=== PATIENT | male | born 1930 | race Caucasian/White ===

== ENCOUNTER → 2016-09-16 | Outpatient (CLI) | payer OTHER ==
[~2016-09-16] MED LIST: ASPI81TA28 PO; ATOR80TA PO; FINA5TAB4 PO; GLIP1TAB85 PO; METF-384 PO; METO1TAB31 PO; MULTTAB58 PO; NXM/40 PO; RAMI10CA PO; TERA5CAP PO
[2016-09-16 17:35] LABS: BASO % 0.2 %; BASO ABS # 0.02 K/uL (0-0.2); COMPLETE YES; EOS % 2.1 %; HEMATOCRIT 38.6 % (42-52); IG% 0.2 %; LYMPH % 15.9 %; LYMPH ABS # 1.65 K/uL (1.2-3.4); MEAN CELL VOLUME 84.5 fL (80-100); MEAN CORPUSCULAR HEMOGLOBIN 27.4 pg (25-34); MEAN CORPUSCULAR HGB CONC 32.4 g/dl (32-36); MEAN PLATELET VOLUME 11.3 fL (7.4-10.4); MONO % 7.7 %; NEUT % 73.9 %; PLATELET COUNT 264 K/uL (130-400); RED BLOOD COUNT 4.57 M/uL (4.7-6.1); WHITE BLOOD COUNT 10.37 K/uL (4.8-10.8)
[2016-09-16 17:53] LABS: ALT/SGPT 25 U/L (12-78); AST/SGOT 16 U/L (15-37); BLOOD UREA NITROGEN 28 mg/dl (7-18); BUN/CREATININE RATIO 17.2 (10-20); CALCIUM 8.8 mg/dl (8.5-10.1); CARBON DIOXIDE 29 mmol/L (21-32); CHLORIDE 107 mmol/L (98-107); GLUCOSE 268 mg/dl (70-99); POTASSIUM 4.5 mmol/L (3.5-5.1); SODIUM 143 mmol/L (136-145)
[2016-09-16 18:04] LABS: ALB/GLOB RATIO 0.9 (0.9-2); ALKALINE PHOSPHATASE 54 U/L (45-117); FERRITIN 13.9 ng/ml (8.0-388.0)
[2016-09-17 06:29] LABS: ESTIMATED AVERAGE GLUCOSE 171 mg/dl; HA1C FLAG Normal (Normal)
--- NOTE | 2016-09-24 13:49 | CODING QUERY MEDICAL NECESSITY ---
SUPPORTING DIAGNOSIS NEEDED A supporting diagnosis is required for the test/procedure performed on this patient in order for us to be reimbursed by the patient's insurance. Please provide a supporting diagnosis for the following test/procedure listed below next to the test name along with your signature. *If there is no additional diagnosis for this patient that would support the following test/procedure please document that below next to the test/procedure. Test(s)/Procedure(s) that require a supporting diagnosis: * VITAMIN B-12 LEVEL DIAGNOSIS * DOS: 09/16/16 Provider Signature: Date: Thank you Martine Wall [facility] Information Management Once completed, please kindly fax back to [phone] For questions please call [phone]
== END | disposition home or self-care (01) ==
LOC: C.LABPBG 14:41
PROVIDERS: ATTEND Internal Medicine Geriatric Medicine
DX: I12.9 Hypertensive chronic kidney disease with stage 1 through stage 4 chronic kidney disease, or unspecified chronic kidney disease (principal); D64.9 Anemia, unspecified; I25.10 Atherosclerotic heart disease of native coronary artery without angina pectoris; Z79.01 Long term (current) use of anticoagulants; I48.0 Paroxysmal atrial fibrillation; I35.0 Nonrheumatic aortic (valve) stenosis; N18.3 Chronic kidney disease, stage 3 (moderate); E11.29 Type 2 diabetes mellitus with other diabetic kidney complication; E11.22 Type 2 diabetes mellitus with diabetic chronic kidney disease

== ENCOUNTER → 2016-09-22 | Outpatient (CLI) | payer OTHER ==
[2016-09-22 13:03] LABS: BLOOD UREA NITROGEN 20 mg/dl (7-18); CALCIUM 8.9 mg/dl (8.5-10.1); CARBON DIOXIDE 28 mmol/L (21-32); CHLORIDE 106 mmol/L (98-107); GLUCOSE 155 mg/dl (70-99); POTASSIUM 4.5 mmol/L (3.5-5.1); SODIUM 143 mmol/L (136-145)
== END | disposition home or self-care (01) ==
LOC: C.LABPBG 10:13
PROVIDERS: ATTEND Internal Medicine Geriatric Medicine
DX: I48.0 Paroxysmal atrial fibrillation (principal); N18.3 Chronic kidney disease, stage 3 (moderate)

== ENCOUNTER → 2017-03-31 | Outpatient (CLI) | payer OTHER ==
[2017-03-31 17:26] LABS: BASO % 0.6 %; BASO ABS # 0.04 K/uL (0-0.2); COMPLETE YES; EOS % 2.6 %; HEMATOCRIT 41.7 % (42-52); IG% 0.3 %; LYMPH % 21.4 %; LYMPH ABS # 1.54 K/uL (1.2-3.4); MEAN CELL VOLUME 87.1 fL (80-100); MEAN CORPUSCULAR HGB CONC 32.1 g/dl (32-36); MEAN PLATELET VOLUME 11.1 fL (7.4-10.4); MONO % 7.2 %; NEUT % 67.9 %; PLATELET COUNT 246 K/uL (130-400); RED BLOOD COUNT 4.79 M/uL (4.7-6.1); WHITE BLOOD COUNT 7.21 K/uL (4.8-10.8)
[2017-03-31 17:39] LABS: ALT/SGPT 19 U/L (12-78); BLOOD UREA NITROGEN 23 mg/dl (7-18); BUN/CREATININE RATIO 14.6 (10-20); CALCIUM 9.8 mg/dl (8.5-10.1); CARBON DIOXIDE 29 mmol/L (21-32); CHLORIDE 106 mmol/L (98-107); CHOLESTEROL 233 mg/dl (0-200); GLUCOSE 192 mg/dl (70-99); POTASSIUM 4.4 mmol/L (3.5-5.1); SODIUM 140 mmol/L (136-145)
[2017-03-31 17:50] LABS: ALB/GLOB RATIO 0.8 (0.9-2); ALKALINE PHOSPHATASE 54 U/L (45-117); AST/SGOT 15 U/L (15-37); CHOLESTEROL/HDL RATIO 5.2; HDL CHOLESTEROL 45 mg/dl; LDL CHOLESTEROL CALCULATED 154 mg/dl; TRIGLYCERIDES 171 mg/dl (0-150); VERY LOW DENSITY LIPOPROT CALC 34 mg/dl
[2017-04-01 05:56] LABS: ESTIMATED AVERAGE GLUCOSE 174 mg/dl; HA1C FLAG Normal (Normal)
== END | disposition home or self-care (01) ==
LOC: C.LABPBG 11:30
PROVIDERS: ATTEND Internal Medicine Geriatric Medicine
DX: I12.9 Hypertensive chronic kidney disease with stage 1 through stage 4 chronic kidney disease, or unspecified chronic kidney disease (principal); D64.9 Anemia, unspecified; I25.10 Atherosclerotic heart disease of native coronary artery without angina pectoris; M10.9 Gout, unspecified; N18.3 Chronic kidney disease, stage 3 (moderate); E11.29 Type 2 diabetes mellitus with other diabetic kidney complication; I48.0 Paroxysmal atrial fibrillation

== ENCOUNTER → 2017-09-22 | Outpatient (CLI) | payer OTHER ==
[~2017-09-22] MED LIST changes: +METO-478 PO; -METO1TAB31 PO
[2017-09-22 12:28] LABS: BASO % 0.5 %; BASO ABS # 0.04 K/uL (0-0.2); EOS % 2.4 %; HEMATOCRIT 41.8 % (42-52); HEMOGLOBIN 14.1 g/dL (14.0-18.0); IG# 0.03 K/uL (0.00-0.02); LYMPH % 20.8 %; LYMPH ABS # 1.76 K/uL (1.2-3.4); MEAN CELL VOLUME 87.1 fL (80-100); MEAN CORPUSCULAR HEMOGLOBIN 29.4 pg (25-34); MEAN CORPUSCULAR HGB CONC 33.7 g/dl (32-36); MEAN PLATELET VOLUME 11.5 fL (7.4-10.4); MONO % 8.7 %; MONO ABS # 0.74 K/uL (0.11-0.59); NEUT % 67.2 %; PLATELET COUNT 249 K/uL (130-400); RED CELL DISTRIBUTION WIDTH CV 14.2 % (11.5-14.5); RED CELL DISTRIBUTION WIDTH SD 44.9 fL (36.4-46.3); WHITE BLOOD COUNT 8.47 K/uL (4.8-10.8)
[2017-09-22 13:08] LABS: HEMOGLOBIN A1C 7.8 % (4.5-5.6)
[2017-09-22 18:25] LABS: ALBUMIN 3.4 gm/dl (3.4-5.0); ALT/SGPT 24 U/L (12-78); AST/SGOT 17 U/L (15-37); BLOOD UREA NITROGEN 26 mg/dl (7-18); CALCIUM 9.3 mg/dl (8.5-10.1); CARBON DIOXIDE 30 mmol/L (21-32); CHOLESTEROL 190 mg/dl (0-200); CREATININE 1.97 mg/dl (0.60-1.40); GLUCOSE 222 mg/dl (70-99); POTASSIUM 4.5 mmol/L (3.5-5.1); SODIUM 140 mmol/L (136-145)
[2017-09-22 18:29] LABS: ALKALINE PHOSPHATASE 56 U/L (45-117); LDL CHOLESTEROL CALCULATED 100 mg/dl; TOTAL PROTEIN 7.6 gm/dl (6.4-8.2)
== END | disposition home or self-care (01) ==
LOC: C.LABPBG 10:53
PROVIDERS: ATTEND Internal Medicine Geriatric Medicine
DX: I12.9 Hypertensive chronic kidney disease with stage 1 through stage 4 chronic kidney disease, or unspecified chronic kidney disease (principal); E83.42 Hypomagnesemia; N18.3 Chronic kidney disease, stage 3 (moderate); I25.10 Atherosclerotic heart disease of native coronary artery without angina pectoris; M10.9 Gout, unspecified; E11.29 Type 2 diabetes mellitus with other diabetic kidney complication; E11.22 Type 2 diabetes mellitus with diabetic chronic kidney disease

== ENCOUNTER 2018-08-05 11:37 | Inpatient (IN) ==
[2018-08-05] MEDS ORDERED: MoRPHine SULFATE 2 MG/ML CARP IV STA (12:33)
[2018-08-05] MEDS ORDERED: ONDANSETRON INJ 2 MG/ML 2 ML VIAL IV STA ×2 (12:33→14:09)
[2018-08-05 12:43] LABS: Basophils # (auto) 0.02 K/uL (0-0.2); Basophils % (auto) 0.2 %; Hemoglobin 15.4 g/dL (14.0-18.0); Immature Granulocytes # (auto) 0.03 K/uL (0.00-0.02); Immature Granulocytes % (auto) 0.2 %; Lymphocytes # (auto) 1.14 K/uL (1.2-3.4); Lymphocytes % (auto) 8.7 %; Mean Corpuscular Hgb Conc 34.2 g/dL (32-36); Mean Corpuscular Volume 86.2 fL (80-100); Mean Platelet Volume 10.9 fL (7.4-10.4); Monocytes # (auto) 0.82 K/uL (0.11-0.59); Monocytes % (auto) 6.3 %; Neutrophils # (auto) 11.02 K/uL (1.4-6.5); Neutrophils % (auto) 84.6 %; Platelet Count 204 K/uL (130-400); RDW Coefficient of Variation 13.4 % (11.5-14.5); RDW Standard Deviation 42.4 fL (36.4-46.3); Red Blood Count 5.22 M/uL (4.7-6.1); White Blood Count 13.03 K/uL (4.8-10.8)
[2018-08-05] MEDS ORDERED: SODIUM CHLORIDE 0.9% 500 ML IV SCH (12:45)
[2018-08-05 12:49] LABS: INR 1.4 (0.9-1.1)
[2018-08-05 12:51] LABS: Albumin Level 3.4 gm/dl (3.4-5.0); BUN Creatinine Ratio 13.7 (10-20); Calcium 9.3 mg/dl (8.5-10.1); Creatinine Clr Calc Pharmacy 34.7 ml/min; Est GFR (Non-African American) 39.7
--- NOTE | 2018-08-05 12:57 | XRay Report ---
XR chest 1V portable CLINICAL HISTORY: Atypical chest pain COMPARISON STUDY: 04/22/2013 FINDINGS: There are postsurgical changes of midline sternotomy. The heart is mildly enlarged. There i s no focal pulmonary consolidation. There is no overt failure. There are no pleural effusions.[ IMPRESSION: No active disease in the chest. Electronically signed by: Luis Manuel Keller M.D. 08/05/2018 12:55 PM
[2018-08-05 13:00] LABS: iSTAT Hemoglobin 14.6 g/dl (14.0-18.0); iSTAT Ionized Calcium 1.16 mmol/l (1.12-1.32)
[2018-08-05] MEDS ORDERED: IOVERSOL 100ml IV PRN (13:06)
--- NOTE | 2018-08-05 13:13 | CT Scan Report ---
CT cervical spine wo con CT DOSE: 352.10 mGy.cm HISTORY: Pain Pt c/o neck pain TECHNIQUE: Multiaxial CT images of the cervical spine were performed and reformatted in the sagittal and coronal plane without the use of contrast. A dose lowering technique was utilized adhering to th e principles of ALARA. COMPARISON: None. FINDINGS: No fractures. No subluxation. Prevertebral soft tissues and the C1-C2 interval are intact. No pneumothorax. Considerable degenerative disc changes throughout. Considerable degenerative changes of the lateral elements throughout. IMPRESSION: Considerable degenerative change. No acute bony abnormality. The above report was generated using voice recognition software. It may contain grammatical, syntax or spelling errors. Electronically signed by: Leonid Borrero M.D. 08/05/2018 1:12 PM
[2018-08-05 13:20] LABS: Albumin Globulin Ratio 0.7 (0.9-2); Bilirubin,Total 0.9 mg/dl (0.2-1); Creatine Kinase MB 14.4 ng/ml (0.5-3.6); Globulin 4.7 gm/dl (2.5-4.0); Total Protein 8.1 gm/dl (6.4-8.2)
--- NOTE | 2018-08-05 13:29 | CT Scan Report ---
ABDOMEN AND PELVIS CT WITH IV CONTRAST CT DOSE: 627.68 mGy.cm HISTORY: Complains of epigastric pain. TECHNIQUE: Multiaxial CT images of the abdomen and pelvis were performed following the use of intrave nous contrast. A dose lowering technique was utilized adhering to the principles of ALARA. COMPARISON STUDY: None. FINDINGS: Punctate calcified granuloma within the right middle lobe. Mild dependent changes seen at t he lung bases. No fractures within the visualized osseous structures. Poststernotomy changes. No pneu moperitoneum. No pneumatosis. Small hiatus hernia. Punctate calcified granulomas seen throughout the liver and spleen. The adrenal glands, pancreas, and kidneys are within normal limits. No hydronephros is. No retroperitoneal lymphadenopathy. Calcified plaque within the normal caliber abdominal aorta. A 1.5 cm diverticulum at the second portion of the duodenum. There is gallbladder wall thickening and trace pericholecystic fluid. A 1 cm gallstone in a few additional tiny gallstones identified. There i s suggestion of a 5 mm stone at the distal common bile duct best seen on image 39 of 100. Therefore, these findings are consistent with acute cholecystitis. The bladder is unremarkable. The prostate gla nd is enlarged. No bowel wall thickening or obstruction. Colonic diverticulosis. No evidence for dive rticulitis. Moderate stool within the colon. No definite bowel wall thickening or obstruction. The ap pendix not identified and reportedly surgically absent. IMPRESSION: 1. Above findings are consistent with acute cholecystitis. There are few small gallstones identified within the gallbladder. In addition, there is suggestion of a 5 mm stone at the distal common bile du ct. Surgical consultation recommended. 2. No bowel wall thickening or obstruction. 3. Additional findings as described above. Electronically signed by: Mark Huang M.D. 08/05/2018 1:28 PM
[2018-08-05] MEDS ORDERED: cefOXitin 1,000 MG/50 ML BAG IV STA (13:34)
[2018-08-05] MEDS ORDERED: METOCLOPRAMIDE HCL INJ 5 MG/ML 2 ML VIAL IV STA (13:38)
[2018-08-05] MEDS ORDERED: HYDROmorphone INJ 0.5 MG/0.5 ML SYR IV PRN ×2 (13:38→17:48)
[2018-08-05] MEDS ORDERED: SODIUM CHLORIDE 0.9% 1000ML 1,000 ML IV ONE (13:38)
[2018-08-05 13:48] LABS: Troponin I 0.467 ng/ml (0-0.045)
[2018-08-05] MEDS ORDERED: DEXAMETHASONE **PF** INJ 10 MG/ML VIAL IV ONE (14:09)
[2018-08-05] MEDS ORDERED: KETOROLAC 30 MG/ML VIAL IV STA (14:09)
[2018-08-05] MEDS ORDERED: HYDROmorphone INJ 1 MG/ML SYRINGE IV STA (14:09)
--- NOTE | 2018-08-05 16:19 | History & Physical Report ---
Date of Service August 05, 2018 Assessment & Plan (1) Acute cholecystitis: 87 y/o M Hx CAD, PAF, HTN, HLD, CKD III, BPH, DM II. Presents with nausea , upper abdominal pain and a fever x 2 days. The pt is a poor historian and a side from generalized weakness denies additional complaints. A CT of the abdomen was obtained in the ER demonstrating acute cholecystitis and possibly, a 5mm common duct stone. Initil labs are notable for an elevated troponin. He has not had or SOB. 1) Acute cholecystitis - we have consulted surgery and placed him on broad coverage due to his age, fever and concern for evolving sepsis. As there may be a stone in the common duct, GI will be consulted as well. He is provided with IVF, antiemetics and analgesics. We will keep him NPO. 2) Elevated trop - this may be due to his infection. As he has a history of CAD and will likely need surgery, we have ordered an echo and requested a cardiology consult. No additional treatment at present as he does not have related symptoms or acute EKG changes. 3) PAF - sinus rhythm on admission - cont B john - Apixaban held due to potential surgery. 4) DM II - placed on a SS 5) HTN, HLD - can cont metoprolol, statin - Lisinopril held Full code - Apixaban held athough currently aniciogulated Total time for this admit including review of labs, meds, imaging, records - discussion with pt and ER attending - 37 min History of Present Illness Chief Complaint: Abdominal pain, fever, nausea Primary Care Provider: IVAN Talbot 87 y/o M Hx CAD, PAF, HTN, HLD, CKD IIIBPH, DM II. Presents with nausea, upper abdominal pain and a fever x 2 days. The pt is a poor historian and a side from generalized weakness denies additional complaints. A CT of the abdomen was obtained in the ER demonstrating acute cholecystitis and possibly, a 5mm common duct stone. Initil labs are notable for an elevated troponin. He has not had or SOB. 1) PMH: 1) Paroxysmal AF 2) Moderate aortic stenosis 3) HTN 4) HLD 5) CAD 6) DM II 7) BPH 8) CKD III Surgical: 1) two vessel CABG 2012 2) Appendectomy Social: Rarely drinks, no smoking history Family: Noncontributory due to age Allergies Allergy/AdvReac Type Severity Reaction Status Date / Time No Known Allergies Allergy Unverified 08/05/18 13:22 Home Medications Home Medications Medication Instructions Recorded Confirmed Type acetaminophen [Tylenol Extra 1,000 mg PO Q6H PRN 08/05/18 08/05/18 History Strength] apixaban [Eliquis] 2.5 mg PO BID 08/05/18 08/05/18 History aspirin 81 mg PO QAM 08/05/18 08/05/18 History atorvastatin 80 mg PO QAM 08/05/18 08/05/18 History esomeprazole magnesium [Nexium] 40 mg PO QAM 08/05/18 08/05/18 History finasteride 5 mg PO QAM 08/05/18 08/05/18 History glipizide 10 mg PO BID 08/05/18 08/05/18 History metoprolol succinate 150 mg PO QAM 08/05/18 08/05/18 History multivitamin 1 tab PO QAM 08/05/18 08/05/18 History nystatin 1 applic TOPICAL TID 08/05/18 08/05/18 History ramipril 5 mg PO QAM 08/05/18 08/05/18 History sitagliptin [Januvia] 50 mg PO QAM 08/05/18 08/05/18 History terazosin 5 mg PO HS 08/05/18 08/05/18 History triamcinolone acetonide 1 applic TOPICAL TID 08/05/18 08/05/18 History Past Med/Surg History Medical History CKD (chronic kidney disease) Social History Current Living Situation: Spouse Other Information That Helps Us Care for You: No Feels Safe at Home: Yes Safety Concerns: Feels Safe At This Time Smoking Status: Former smoker Do You Dip or Chew Tobacco: No Smoking End Date: 1981 Hx Alcohol Use: Yes Alcohol type: other Alcohol Intake Frequency: holidays/ special occasions only Hx Substance Use: No Beliefs That Will Affect Care: Alevism Alevism Beliefs: Mu-Ism Preferred Language: Brazilian Communication Ability: Effective Work Station Support Specialist Required: No Review of Systems Gen: Reports fevers, weakness, malais ENT: Denies congestion, throat pain, hearing loss Eyes: Denies acute visual changes CV: Denies CP, palpitations Pulmonary: Denies SOB, cough, wheezing GI: Upper abdominal pain and nausea Neuro: Denies acute or unilateral weakness, acute gait impairment, headache or acute visual changes Musculoskeletal: Denies joint pain, inflammation Endocrine: Denies polydipsia, polyuria Skin: Denies acute rashes or ulcers Physical Exam 2 Vital Signs (Past 24 Hours): Last Vital Signs Temp 37.6 C H 08/05/18 15:38 Pulse 97 H 08/05/18 15:04 Resp 18 08/05/18 15:04 BP 127/72 08/05/18 15:04 Pulse Ox 96 08/05/18 15:04 Physical Exam: General: Ill-appearing, lethargic, elderly male - AAO - no distress ENT: No erythema or exudates, no thrush Eyes: RIDDHI, EOMI Head and neck: Normocephalic, atraumatic, No JVD, neck is supple. Chest/heart: Nontender, S1,2, 3/6 systolic murmur - sternotomy scar Lungs: CTAB, no wheezing or crackles Abdomen: Minimally tender in RUQ - had received narcotics prior to exam Neuro: AAO x 3, speech is clear, no unilateral weakness or loss of sensation, coordination intact Musculoskeletal: No joint inflammation, muscle tenderness, FROM Skin: No acute rashes or ulcers Extremities: No clubbing, cyanosis, edema Results & Data Diagnostic Findings 1. Acute cholecystitis. There are a few small gallstones identified within the gallbladder. In addition, there is suggestion of a 5 mm stone at the distal common bile duct. Surgical consultation recommended. 2. No bowel wall thickening or obstruction.
--- NOTE | 2018-08-05 16:45 | Surgery Consultation ---
Date of Consultation August 05, 2018 Assessment & Plan (1) Acute cholecystitis: pt is a 87 year old male who presents to Er with 2 days history abdominal pain, IMP: [place], CKD, acute cholecystitis, cholelithiasis, CBD stone, Plan, I agree with internal medicine will admit pt to hospital, IV fluid ,antibiotic, control pain, MRCP, consult GI for CBD stone, repeat labs in am, will f/U History of Present Illness History of Present Illness 87 y/o M Hx CAD, PAF, HTN, HLD, BPH, DM II. Presents with nausea, upper abdominal pain and a fever x 2 days. The pt is a poor historian and a side from generalized weakness denies additional complaints. A CT of the abdomen was obtained in the ER demobstrating I got a call for consult this pt, I reviewed pt's H/P with pt, his and his friend, I reviewed CT scan, now pt has no significant abdominal pain, no nausea , no vomiting, no fever. Allergies Allergy/AdvReac Type Severity Reaction Status Date / Time No Known Allergies Allergy Unverified 08/05/18 13:22 Home Medications Home Medications Medication Instructions Recorded Confirmed Type acetaminophen [Tylenol Extra 1,000 mg PO Q6H PRN 08/05/18 08/05/18 History Strength] apixaban [Eliquis] 2.5 mg PO BID 08/05/18 08/05/18 History aspirin 81 mg PO QAM 08/05/18 08/05/18 History atorvastatin 80 mg PO QAM 08/05/18 08/05/18 History esomeprazole magnesium [Nexium] 40 mg PO QAM 08/05/18 08/05/18 History finasteride 5 mg PO QAM 08/05/18 08/05/18 History glipizide 10 mg PO BID 08/05/18 08/05/18 History metoprolol succinate 150 mg PO QAM 08/05/18 08/05/18 History multivitamin 1 tab PO QAM 08/05/18 08/05/18 History nystatin 1 applic TOPICAL TID 08/05/18 08/05/18 History ramipril 5 mg PO QAM 08/05/18 08/05/18 History sitagliptin [Januvia] 50 mg PO QAM 08/05/18 08/05/18 History terazosin 5 mg PO HS 08/05/18 08/05/18 History triamcinolone acetonide 1 applic TOPICAL TID 08/05/18 08/05/18 History Patient History Medical History Acute cholecystitis (Acute) CKD (chronic kidney disease) Social History Current Living Situation: Spouse Other Information That Helps Us Care for You: No Feels Safe at Home: Yes Safety Concerns: Feels Safe At This Time Smoking Status: Former smoker Do You Dip or Chew Tobacco: No Smoking End Date: 1981 Hx Alcohol Use: Yes Alcohol type: other Alcohol Intake Frequency: holidays/ special occasions only Hx Substance Use: No Beliefs That Will Affect Care: Congregation Congregation Beliefs: Cheondoism Preferred Language: [place] Communication Ability: Effective Comsec Manager Required: No Review of Systems Constitutional: as per Subjective / HPI Ear, Nose, Mouth, Throat: as per Subjective / HPI Respiratory: as per Subjective / HPI Cardiovascular: as per Subjective / HPI Gastrointestinal: as per Subjective / HPI Genitourinary (Male): as per Subjective / HPI Musculoskeletal: as per Subjective / HPI Integumentary: as per Subjective / HPI Neurologic: as per Subjective / HPI Psychiatric: as per Subjective / HPI Endocrine: as per Subjective / HPI Hematologic / Lymphatic: as per Subjective / HPI Physical Exam 2 Vital Signs (Past 24 Hours): Last Vital Signs Temp 37.6 C H 08/05/18 15:38 Pulse 97 H 08/05/18 15:04 Resp 18 08/05/18 15:04 BP 127/72 08/05/18 15:04 Pulse Ox 96 08/05/18 15:04 Constitutional: WD/WN, vitals as above well developed and well nourished Neck: trachea midline, no thyromegaly Respiratory: normal respiratory effort, lungs clear to auscultation Cardiovascular: RRR, no murmur, no edema Rate/Rhythm: regular rate and regular rhythm Gastrointestinal (Abdomen): Percussion/Palpation: abdomen soft no significant tenderness on abdomen, BS + Neurologic: awake Psychiatric: Orientation: alert and oriented x 3 Lymphatic: no cervical or axillary lymphadenopathy Results & Data Laboratory Results Abnormal lab results 08/05/18 08/05/18 08/05/18 Range/Units 11:50 11:50 11:50 WBC 13.03 H (4.8-10.8) K/uL MPV 10.9 H (7.4-10.4) fL Immature Gran # (Auto) 0.03 H (0.00-0.02) K/uL Neut # (Auto) 11.02 H (1.4-6.5) K/uL Lymph # (Auto) 1.14 L (1.2-3.4) K/uL [place] # (Auto) 0.82 H (0.11-0.59) K/uL PT 14.0 H (9.0-12.0) Seconds INR 1.4 H (0.9-1.1) Sodium 134 L (136-145) mmol/L POC Chloride (101-112) mEq/L POC BUN (7-18) mg/dl BUN 21 H (7-18) mg/dl Creatinine 1.55 H (0.6-1.4) mg/dl POC Creatinine (0.6-1.3) mg/dl Glucose 166 H (70-99) mg/dl POC Glucose (other) (70-99) mg/dl AST 225 H (15-37) U/L ALT 105 H (12-78) U/L Total Creatine Kinase 8706 H (39-308) U/L CK-MB (CK-2) 14.4 H (0.5-3.6) ng/ml Troponin I 0.467 H* (0-0.045) ng/ml Globulin 4.7 H (2.5-4.0) gm/dl Albumin/Globulin Ratio 0.7 L (0.9-2) 08/05/18 Range/Units 12:48 WBC (4.8-10.8) K/uL MPV (7.4-10.4) fL Immature Gran # (Auto) (0.00-0.02) K/uL Neut # (Auto) (1.4-6.5) K/uL Lymph # (Auto) (1.2-3.4) K/uL [place] # (Auto) (0.11-0.59) K/uL PT (9.0-12.0) Seconds INR (0.9-1.1) Sodium (136-145) mmol/L POC Chloride 99 L (101-112) mEq/L POC BUN 21 H (7-18) mg/dl BUN (7-18) mg/dl Creatinine (0.6-1.4) mg/dl POC Creatinine 1.4 H (0.6-1.3) mg/dl Glucose (70-99) mg/dl POC Glucose (other) 161 H (70-99) mg/dl AST (15-37) U/L ALT (12-78) U/L Total Creatine Kinase (39-308) U/L CK-MB (CK-2) (0.5-3.6) ng/ml Troponin I (0-0.045) ng/ml Globulin (2.5-4.0) gm/dl Albumin/Globulin Ratio (0.9-2) Diagnostic Findings ABDOMEN AND PELVIS CT WITH IV CONTRAST CT DOSE: 627.68 mGy.cm HISTORY: Complains of epigastric pain. TECHNIQUE: Multiaxial CT images of the abdomen and pelvis were performed following the use of intravenous contrast. A dose lowering technique was utilized adhering to the principles of ALARA. COMPARISON STUDY: None. FINDINGS: Punctate calcified granuloma within the right middle lobe. Mild dependent changes seen at the lung bases. No fractures within the visualized osseous structures. Poststernotomy changes. No pneumoperitoneum. No pneumatosis. Small hiatus hernia. Punctate calcified granulomas seen throughout the liver and spleen. The adrenal glands, pancreas, and kidneys are within normal limits. No hydronephrosis. No retroperitoneal lymphadenopathy. Calcified plaque within the normal caliber abdominal aorta. A 1.5 cm diverticulum at the second portion of the duodenum. There is gallbladder wall thickening and trace pericholecystic fluid. A 1 cm gallstone in a few additional tiny gallstones identified. There is suggestion of a 5 mm stone at the distal common bile duct best seen on image 39 of 100. Therefore, these findings are consistent with acute cholecystitis. The bladder is unremarkable. The prostate gland is enlarged. No bowel wall thickening or obstruction. Colonic diverticulosis. No evidence for diverticulitis. Moderate stool within the colon. No definite bowel wall thickening or obstruction. The appendix not identified and reportedly surgically absent. IMPRESSION: 1. Above findings are consistent with acute cholecystitis. There are few small gallstones identified within the gallbladder. In addition, there is suggestion of a 5 mm stone at the distal common bile duct. Surgical consultation recommended. 2. No bowel wall thickening or obstruction. 3. Additional findings as described above. CT cervical spine wo con CT DOSE: 352.10 mGy.cm HISTORY: Pain Pt c/o neck pain TECHNIQUE: Multiaxial CT images of the cervical spine were performed and reformatted in the sagittal and coronal plane without the use of contrast. A dose lowering technique was utilized adhering to the principles of ALARA. COMPARISON: None. FINDINGS: No fractures. No subluxation. Prevertebral soft tissues and the C1-C2 interval are intact. No pneumothorax. Considerable degenerative disc changes throughout. Considerable degenerative changes of the lateral elements throughout. IMPRESSION: Considerable degenerative change. No acute bony abnormality.
--- NOTE | 2018-08-05 17:45 | Ultrasound Report ---
ABDOMINAL ULTRASOUND, RIGHT UPPER QUADRANT HISTORY: Epigastric pain. Abnormal CT. acute ana - evaluate ducts for dilatation/stone. COMPARISON: Abdomen and pelvis CT 08/05/2018. FINDINGS: Pancreas: The pancreas demonstrates a normal echotexture. Liver: Unremarkable. Gallbladder: The gallbladder is mildly distended. The wall is thickened up to [address] ones and sludge are identified. CBD: 7 mm in diameter. This is considered within the range of normal limits given the patient's age. The distal common bile duct was not well visualized. Right kidney: No hydronephrosis. IMPRESSION: Gallbladder wall thickening with multiple small gallstones and sludge. Therefore, this likely represe nts acute cholecystitis. Electronically signed by: Mark Huang M.D. 08/05/2018 5:44 PM
[2018-08-05] MEDS ORDERED: ONDANSETRON INJ 2 MG/ML 2 ML VIAL IV PRN (17:48)
[2018-08-05] MEDS ORDERED: PIPERACILL/TAZOBAC CONSULT ACTIVE PRN (17:48)
[2018-08-05] MEDS ORDERED: PIPERACILLIN/TAZOBACTAM 3.375 GM/115 ML BAG IV ONE (18:15)
[2018-08-05] MEDS: INSULIN ASPART 100 UNITS/ML 3 ML PEN SC SCH (18:23)
[2018-08-05] MEDS: LACTATED RINGER'S 1,000 ML IV SCH (18:24)
--- NOTE | 2018-08-05 20:35 | Magnetic Resonance Report ---
MRCP CLINICAL HISTORY: Acute cholecystitis. CBD stone. COMPARISON STUDY: CT of the abdomen and pelvis and right upper quadrant ultrasound performed earlier today. TECHNIQUE: Utilizing a 1.5 Laura magnet and dedicated coil, multiplanar, multi echo imaging of the ab domen was performed utilizing heavily weighted pulsing sequences. No intravenous contrast was injecte d. FINDINGS: Multiple gallstones within the gallbladder measuring up to 1.4 cm. Exam is mildly compromis ed by motion artifact. However, there is suggestion of mild gallbladder wall thickening with trace pe richolecystic fluid. The gallbladder is mildly distended. There is no biliary ductal dilatation. A 5 mm calculus within the distal common bile duct is noted. At least one additional distal common bile d uct calculus measures 4 mm. Course and caliber of the main pancreatic duct are normal. There is no pe ripancreatic infiltration. No pancreatic mass is identified although sensitivity is diminished on thi s unenhanced exam. There is a diverticulum of the second portion of the duodenum. There is no hydrone phrosis. Unenhanced images of the spleen and liver are unremarkable. There is no abdominal adenopathy . IMPRESSION: 1. 5 mm distal common bile duct calculus with at least one additional smaller distal CBD stone. 2. Cholelithiasis with mild gallbladder wall thickening suggestive of acute cholecystitis. 3. No biliary or pancreatic ductal dilatation. 4. 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 Electronically signed by: Saurabh Argueta M.D. 08/05/2018 8:34 PM
[2018-08-05] MEDS: TERAZOSIN HCL 5 MG CAP PO SCH (20:39)
[2018-08-06] MEDS: INSULIN ASPART 100 UNITS/ML 3 ML PEN SC SCH ×5 (00:07→21:31)
[2018-08-06] MEDS: PIPERACILLIN/TAZOBACTAM 3.375 GM/115 ML BAG IV SCH ×4 (00:33→23:54)
[2018-08-06 06:56] LABS: Basophils # (auto) 0.03 K/uL (0-0.2); Basophils % (auto) 0.3 %; Eosinophils # (auto) 0.04 K/uL (0-0.5); Eosinophils % (auto) 0.4 %; Hematocrit (blood only) 38.3 % (42-52); Hemoglobin 12.9 g/dL (14.0-18.0); Immature Granulocytes # (auto) 0.03 K/uL (0.00-0.02); Immature Granulocytes % (auto) 0.3 %; Lymphocytes # (auto) 1.45 K/uL (1.2-3.4); Lymphocytes % (auto) 13.4 %; Mean Corpuscular Hgb Conc 33.7 g/dL (32-36); Mean Corpuscular Volume 86.7 fL (80-100); Mean Platelet Volume 10.7 fL (7.4-10.4); Monocytes % (auto) 10.2 %; Neutrophils # (auto) 8.16 K/uL (1.4-6.5); Neutrophils % (auto) 75.4 %; Platelet Count 174 K/uL (130-400); RDW Coefficient of Variation 13.3 % (11.5-14.5); RDW Standard Deviation 42.5 fL (36.4-46.3); Red Blood Count 4.42 M/uL (4.7-6.1); White Blood Count 10.81 K/uL (4.8-10.8)
[2018-08-06 07:28] LABS: BUN Creatinine Ratio 15.8 (10-20); Calcium 8.4 mg/dl (8.5-10.1); Creatinine Clr Calc Pharmacy 35.4 ml/min; Est GFR (African American) 47.1; Est GFR (Non-African American) 40.6; Magnesium 2.1 mg/dl (1.8-2.4); Potassium 3.7 mmol/L (3.5-5.1)
--- NOTE | 2018-08-06 07:54 | Emergency Department Note ---
Entered by Nancy Saucedo acting as a scribe for History of Present Illness General Chief complaint: Back Injury/Pain Time Seen by Provider: 08/05/18 12:15 Source: patient Mode of arrival: ambulatory Limitations: no limitations History of Present Illness Provider complaint: abdominal pain Onset (ago): week(s) 2 Location: abdomen Pain Consistency: + constant Maximum Pain Intensity: 5 Quality: + other (abdominal pain) Associated symptoms: + weakness and + other (Associated symptom: neck pain. Denies: falls) The patient is an 87 year old male who presents to the Emergency Room with complaints of constant abdominal pain beginning 2 weeks ago. He reports he also has pain in the back of his neck, beginning a few days ago. He reports this neck pain was likely caused by laying on the floor for a period of time as he was unable to lift himself off the ground. The patient denies any falls. He notes recent weakness. Home Medications Home Medications Medication Instructions Recorded Confirmed Type acetaminophen [Tylenol Extra 1,000 mg PO Q6H PRN 08/05/18 08/05/18 History Strength] apixaban [Eliquis] 2.5 mg PO BID 08/05/18 08/05/18 History aspirin 81 mg PO QAM 08/05/18 08/05/18 History atorvastatin 80 mg PO QAM 08/05/18 08/05/18 History esomeprazole magnesium [Nexium] 40 mg PO QAM 08/05/18 08/05/18 History finasteride 5 mg PO QAM 08/05/18 08/05/18 History glipizide 10 mg PO BID 08/05/18 08/05/18 History metoprolol succinate 150 mg PO QAM 08/05/18 08/05/18 History multivitamin 1 tab PO QAM 08/05/18 08/05/18 History nystatin 1 applic TOPICAL TID 08/05/18 08/05/18 History ramipril 5 mg PO QAM 08/05/18 08/05/18 History sitagliptin [Januvia] 50 mg PO QAM 08/05/18 08/05/18 History terazosin 5 mg PO HS 08/05/18 08/05/18 History triamcinolone acetonide 1 applic TOPICAL TID 08/05/18 08/05/18 History Allergies Allergy/AdvReac Type Severity Reaction Status Date / Time No Known Allergies Allergy Unverified 08/05/18 13:22 Past Med/Surg History Medical History Acute cholecystitis (Acute) CKD (chronic kidney disease) Aortic stenosis, moderate BPH (benign prostatic hyperplasia) Diabetes mellitus GERD (gastroesophageal reflux disease) HTN (hypertension) PAF (paroxysmal atrial fibrillation) Surgical History S/P CABG (coronary artery bypass graft) S/P appendectomy Social History Current Living Situation: Spouse Other Information That Helps Us Care for You: No Feels Safe at Home: Yes Safety Concerns: Feels Safe At This Time Smoking Status: Former smoker Do You Dip or Chew Tobacco: No Smoking End Date: 1981 Hx Alcohol Use: Yes Alcohol type: other Alcohol Intake Frequency: holidays/ special occasions only Hx Substance Use: No Beliefs That Will Affect Care: Rastafarian Rastafarian Beliefs: Confucianist Communication Ability: Effective Review of Systems See HPI for pertinent positives & negatives. and A total of 10 systems reviewed and were otherwise negative Physical Exam Vital Signs Vital Signs - 24 hr 08/08/18 19:28 08/08/18 20:43 08/08/18 23:25 Temperature 37.0 C 37.0 C Temperature Source Oral Oral Pulse Rate Pulse Rate [Left Finger] Pulse Rate [Right Finger] 68 68 Pulse Rhythm [Left Finger] Pulse Rhythm [Right Finger] Pulse Strength [Left Finger] Pulse Strength [Right Finger] Respiratory Rate 18 20 Respiratory Effort / Characteristics Respiratory Depth Respiratory Pattern Blood Pressure [Left Arm] 165/81 H 149/72 H Blood Pressure [Right Arm] 156/73 H Blood Pressure Mean [Left Arm] 109 97 Blood Pressure Mean [Right Arm] 100 Blood Pressure Position [Left Arm] Lying Blood Pressure Position [Right Arm] Pulse Oximetry 96 98 Oxygen Delivery Method Room Air Room Air Oxygen Flow Rate 08/09/18 00:34 08/09/18 01:31 08/09/18 03:39 Temperature 37.3 C Temperature Source Oral Pulse Rate 71 Pulse Rate [Left Finger] 71 Pulse Rate [Right Finger] Pulse Rhythm [Left Finger] Pulse Rhythm [Right Finger] Pulse Strength [Left Finger] Normal Pulse Strength [Right Finger] Respiratory Rate 20 Respiratory Effort / Characteristics Non-Labored Spontaneous Respiratory Depth Normal Normal Respiratory Pattern Regular Blood Pressure [Left Arm] 151/75 H Blood Pressure [Right Arm] Blood Pressure Mean [Left Arm] 100 Blood Pressure Mean [Right Arm] Blood Pressure Position [Left Arm] Lying Blood Pressure Position [Right Arm] Pulse Oximetry 92 Oxygen Delivery Method Room Air Room Air Oxygen Flow Rate 08/09/18 07:00 08/09/18 08:00 08/09/18 11:42 Temperature 36.6 C 36.5 C Temperature Source Oral Oral Pulse Rate 70 Pulse Rate [Left Finger] 88 63 Pulse Rate [Right Finger] Pulse Rhythm [Left Finger] Pulse Rhythm [Right Finger] Pulse Strength [Left Finger] Pulse Strength [Right Finger] Respiratory Rate 18 18 Respiratory Effort / Characteristics Non-Labored Respiratory Depth Normal Respiratory Pattern Regular Blood Pressure [Left Arm] 145/64 H Blood Pressure [Right Arm] 166/79 H Blood Pressure Mean [Left Arm] 91 Blood Pressure Mean [Right Arm] 108 Blood Pressure Position [Left Arm] Blood Pressure Position [Right Arm] Pulse Oximetry 93 94 Oxygen Delivery Method Room Air Oxygen Flow Rate 08/09/18 13:40 08/09/18 15:27 08/09/18 15:35 Temperature 37.1 C 36.7 C Temperature Source Oral Temporal Artery Scan Pulse Rate Pulse Rate [Left Finger] 63 71 Pulse Rate [Right Finger] 63 71 70 Pulse Rhythm [Left Finger] Regular Regular Pulse Rhythm [Right Finger] Regular Regular Regular Pulse Strength [Left Finger] Normal Normal Pulse Strength [Right Finger] Normal Normal Normal Respiratory Rate 18 18 18 Respiratory Effort / Characteristics Non-Labored Non-Labored Non-Labored Respiratory Depth Normal Normal Normal Respiratory Pattern Regular Regular Regular Blood Pressure [Left Arm] 166/72 H 154/85 H Blood Pressure [Right Arm] 167/77 H Blood Pressure Mean [Left Arm] 103 108 Blood Pressure Mean [Right Arm] 107 Blood Pressure Position [Left Arm] Blood Pressure Position [Right Arm] Lying Pulse Oximetry 95 100 99 Oxygen Delivery Method Oxymask Oxymask Oxygen Flow Rate 10 10 08/09/18 15:45 08/09/18 15:55 08/09/18 16:05 Temperature 36.4 C L 36.4 C L Temperature Source Temporal Artery Scan Temporal Artery Scan Pulse Rate Pulse Rate [Left Finger] Pulse Rate [Right Finger] 70 71 71 Pulse Rhythm [Left Finger] Pulse Rhythm [Right Finger] Regular Regular Regular Pulse Strength [Left Finger] Pulse Strength [Right Finger] Normal Normal Normal Respiratory Rate 18 18 18 Respiratory Effort / Characteristics Non-Labored Non-Labored Non-Labored Respiratory Depth Normal Normal Normal Respiratory Pattern Regular Regular Regular Blood Pressure [Left Arm] 143/70 H 145/68 H 138/72 Blood Pressure [Right Arm] Blood Pressure Mean [Left Arm] 94 93 94 Blood Pressure Mean [Right Arm] Blood Pressure Position [Left Arm] Blood Pressure Position [Right Arm] Pulse Oximetry 92 93 93 Oxygen Delivery Method Nasal Cannula Nasal Cannula Nasal Cannula Oxygen Flow Rate 2 2 2 08/09/18 16:30 08/09/18 16:51 08/09/18 17:30 Temperature 36.7 C 36.7 C 36.7 C Temperature Source Oral Oral Oral Pulse Rate Pulse Rate [Left Finger] Pulse Rate [Right Finger] 68 66 68 Pulse Rhythm [Left Finger] Pulse Rhythm [Right Finger] Pulse Strength [Left Finger] Pulse Strength [Right Finger] Respiratory Rate 18 16 18 Respiratory Effort / Characteristics Non-Labored Spontaneous Non-Labored Spontaneous Non-Labored Spontaneous Respiratory Depth Normal Normal Normal Respiratory Pattern Regular Blood Pressure [Left Arm] 165/70 H 175/51 H 188/77 H Blood Pressure [Right Arm] Blood Pressure Mean [Left Arm] 101 92 114 Blood Pressure Mean [Right Arm] Blood Pressure Position [Left Arm] Blood Pressure Position [Right Arm] Pulse Oximetry 94 92 Oxygen Delivery Method Nasal Cannula Room Air Room Air Oxygen Flow Rate 3 2 08/09/18 18:23 08/09/18 18:34 Temperature 36.7 C Temperature Source Oral Pulse Rate Pulse Rate [Left Finger] Pulse Rate [Right Finger] 68 Pulse Rhythm [Left Finger] Pulse Rhythm [Right Finger] Pulse Strength [Left Finger] Pulse Strength [Right Finger] Respiratory Rate 18 Respiratory Effort / Characteristics Non-Labored Spontaneous Non-Labored Spontaneous Respiratory Depth Normal Normal Respiratory Pattern Regular Regular Blood Pressure [Left Arm] 188/77 H Blood Pressure [Right Arm] Blood Pressure Mean [Left Arm] 114 Blood Pressure Mean [Right Arm] Blood Pressure Position [Left Arm] Blood Pressure Position [Right Arm] Pulse Oximetry 92 Oxygen Delivery Method Room Air Room Air Oxygen Flow Rate GENERAL: Awake, alert, well-appearing, in no distress, appears dehydrated HENT: Normocephalic, atraumatic. Oropharynx unremarkable. EYES: Normal conjunctiva. Sclera non-icteric. NECK: Supple. No nuchal rigidity. FROM. No masses. RESPIRATORY: Clear to auscultation. No wheezes. No rales. Normal respiratory effort. CARDIAC: Normal rate. Normal rhythm. No murmurs. No rubs. Extremities warm and well perfused. Pulses equal. No JVD. GI: Soft, non-distended. Tenderness to RUQ. No rebound or guarding. No masses. RECTAL: Deferred. MUSCULOSKELETAL: Atraumatic. Chest examination reveals no tenderness. The back is symmetrical on inspection without obvious abnormality. There is no CVA tenderness to palpation. No joint edema. LOWER EXTREMITIES: Calves are equal size bilaterally and non-tender. No edema. No discoloration. NEURO: Normal sensorium. No sensory or motor deficits noted. Course 1230: Past medical records reviewed. The patient was evaluated in room C3, and a complete history and physical examination were performed. 1343: I reviewed the case with Dr. Louie, [facility] general surgery. He recommends admittance by medicine and will evaluate the patient. 1402 : I discussed the patient's case with Dr. Rodriguez, [facility] hospitalist. He will evaluate the patient for further management. 1400: Upon reevaluation, the patient is resting. I discussed test results. They verbalized agreement with the treatment plan. Consultations Consultation #1: I reviewed the case with Dr. Louie, [facility] general surgery. He recommends admittance by medicine and will evaluate the patient. Time: 13:43 Consultation #2: I discussed the patient's case with Dr. Rodriguez, [facility] hospitalist. He will evaluate the patient for further management. Time: 14:02 Administered Medications Atorvastatin Calcium (Lipitor) 80 mg PO [facility] Stop: 09/05/18 08:59 Last Admin: 08/09/18 07:50 Dose: 80 mg Admin: 08/08/18 07:29 Dose: 80 mg Admin: 08/07/18 07:54 Dose: 80 mg Admin: 08/06/18 08:26 Dose: 80 mg Finasteride (Proscar) 5 mg PO [facility] Stop: 09/05/18 08:59 Last Admin: 08/09/18 07:50 Dose: 5 mg Admin: 08/08/18 07:29 Dose: 5 mg Admin: 08/07/18 07:54 Dose: 5 mg Admin: 08/06/18 08:26 Dose: 5 mg Piperacillin Sod/Tazobactam Sod (Zosyn) 3.375 gm in 115 mls @ 28.75 mls/hr IV Q8H REER; Protocol Stop: 08/16/18 00:00 Last Admin: 08/09/18 18:02 Dose: 28.8 mls/hr Infusion: 08/09/18 12:04 Dose: 0 mls/hr Admin: 08/09/18 07:52 Dose: 28.8 mls/hr Infusion: 08/09/18 04:55 Dose: 0 mls/hr Admin: 08/09/18 00:30 Dose: 28.8 mls/hr Infusion: 08/08/18 20:46 Dose: 0 mls/hr Admin: 08/08/18 15:57 Dose: 28.8 mls/hr Infusion: 08/08/18 11:38 Dose: 0 mls/hr Admin: 08/08/18 07:29 Dose: 28.8 mls/hr Infusion: 08/08/18 05:00 Dose: 0 mls/hr Admin: 08/08/18 00:38 Dose: 28.8 mls/hr Infusion: 08/07/18 21:00 Dose: 0 mls/hr Admin: 08/07/18 16:47 Dose: 28.8 mls/hr Infusion: 08/07/18 12:00 Dose: 0 mls/hr Admin: 08/07/18 07:54 Dose: 28.8 mls/hr Infusion: 08/07/18 03:34 Dose: 0 mls/hr Admin: 08/06/18 23:54 Dose: 28.8 mls/hr Infusion: 08/06/18 22:09 Dose: 0 mls/hr Admin: 08/06/18 18:05 Dose: 28.8 mls/hr Infusion: 08/06/18 14:08 Dose: 0 mls/hr Admin: 08/06/18 08:23 Dose: 30 mls/hr Infusion: 08/06/18 04:33 Dose: 0 mls/hr Admin: 08/06/18 00:33 Dose: 28.8 mls/hr Insulin Aspart (Novolog Flexpen) 0 units SC ACHS RERE Stop: 09/05/18 20:59 Last Admin: 08/09/18 18:08 Dose: 1 units Admin: 08/09/18 12:04 Dose: 1 units Admin: 08/09/18 07:49 Dose: 1 units Admin: 08/08/18 20:45 Dose: 1 units Admin: 08/08/18 18:11 Dose: 3 units Admin: 08/08/18 11:40 Dose: 3 units Admin: 08/08/18 07:25 Dose: Not Given Admin: 08/07/18 21:27 Dose: Not Given Admin: 08/07/18 18:34 Dose: 1 units Admin: 08/07/18 11:57 Dose: 2 units Admin: 08/07/18 07:46 Dose: Not Given Admin: 08/06/18 21:31 Dose: 4 units Insulin Glargine (Lantus Solostar Pen) 5 units SC [facility] Stop: 09/07/18 20:59 Last Admin: 08/08/18 20:53 Dose: 5 units Metoprolol Succinate (Toprol Xl) 150 mg PO [facility] Stop: 09/05/18 08:59 Last Admin: 08/09/18 18:52 Dose: 150 mg Admin: 08/09/18 07:50 Dose: 150 mg Admin: 08/08/18 07:29 Dose: 150 mg Admin: 08/07/18 07:54 Dose: 150 mg Admin: 08/06/18 08:26 Dose: 150 mg Pantoprazole Sodium (Protonix) 40 mg PO [facility] Stop: 09/05/18 08:59 Last Admin: 08/09/18 07:50 Dose: 40 mg Admin: 08/08/18 07:29 Dose: 40 mg Admin: 08/07/18 07:54 Dose: 40 mg Admin: 08/06/18 08:26 Dose: 40 mg Terazosin HCl (Hytrin) 5 mg PO [facility] Stop: 09/04/18 20:59 Last Admin: 08/08/18 20:44 Dose: 5 mg Admin: 08/07/18 21:53 Dose: 5 mg Admin: 08/06/18 21:20 Dose: Not Given Admin: 08/05/18 20:39 Dose: 5 mg Discontinued Medications Bupivacaine HCl (Marcaine 0.5% Mpf) Confirm Administered Dose 30 ml .ROUTE .STK- MED ONE Stop: 08/09/18 13:19 Last Admin: 08/09/18 15:07 Dose: 30 ml Cefazolin Sodium (Ancef) Confirm Administered Dose 1,000 mg .ROUTE .STK-MED ONE Stop: 08/09/18 13:20 Last Admin: 08/09/18 15:08 Dose: 1,000 mg Dexamethasone Sodium Phosphate (Decadron Pf) 10 mg IV NOW ONE Stop: 08/05/18 14:10 Last Admin: 08/05/18 14:59 Dose: Not Given Heparin Sodium (Porcine) (Heparin Iv Bolus (Spouting Installer Use Only)) Confirm Administered Dose 10,000 units .ROUTE .STK-MED ONE Stop: 08/09/18 13:19 Last Admin: 08/09/18 15:06 Dose: 5,000 units Hydromorphone HCl (Dilaudid) 0.5 mg IV Q15M PRN PRN Reason: Pain Stop: 08/19/18 13:37 Last Admin: 08/05/18 13:43 Dose: 0.5 mg Hydromorphone HCl (Dilaudid) 1 mg IV NOW STA Stop: 08/05/18 14:10 Last Admin: 08/05/18 14:59 Dose: Not Given Sodium Chloride (Nss) 500 mls @ 999 mls/hr IV .Q31M RERE Stop: 08/05/18 13:15 Last Infusion: 08/05/18 13:47 Dose: 0 mls/hr Admin: 08/05/18 12:46 Dose: 999 mls/hr Cefoxitin Sodium (Mefoxin) 1,000 mg in 50 mls @ 100 mls/hr IV NOW STA Stop: 08/05/18 14:03 Last Infusion: 08/05/18 15:39 Dose: 0 mls/hr Admin: 08/05/18 14:54 Dose: 100 mls/hr Sodium Chloride (Nss 1000ml) 1,000 mls @ 999 mls/hr IV .[id number] ONE Stop: 08/05/18 14:38 Last Infusion: 08/05/18 16:31 Dose: 0 mls/hr Admin: 08/05/18 13:44 Dose: 999 mls/hr Lactated Ringer's (Lr) 1,000 mls @ 80 mls/hr IV .[id number] [facility] Stop: 08/06/18 18:47 Last Infusion: 08/06/18 17:34 Dose: 0 mls/hr Admin: 08/06/18 08:21 Dose: 80 mls/hr Infusion: 08/06/18 08:19 Dose: 0 mls/hr Infusion: 08/05/18 22:03 Dose: 80 mls/hr Infusion: 08/05/18 20:46 Dose: 80 mls/hr Infusion: 08/05/18 19:23 Dose: 0 mls/hr Admin: 08/05/18 18:24 Dose: 80 mls/hr Piperacillin Sod/Tazobactam Sod (Zosyn) 3.375 gm in 115 mls @ 230 mls/hr IV NOW ONE; Protocol Stop: 08/05/18 18:44 Last Infusion: 08/05/18 18:55 Dose: 0 mls/hr Admin: 08/05/18 18:24 Dose: 230 mls/hr Sodium Chloride (Nss 1000ml) 1,000 mls @ 75 mls/hr IV .[id number] ERRE Stop: 08/07/18 09:34 Last Infusion: 08/07/18 09:38 Dose: 0 mls/hr Admin: 08/06/18 21:14 Dose: 75 mls/hr Indomethacin (Indocin) Confirm Administered Dose 100 mg OR .STK-MED ONE Stop: 08/06/18 14:48 Last Admin: 08/06/18 15:47 Dose: 100 mg Insulin Aspart (Novolog Flexpen) 0 units SC Q6 RERE Stop: 09/04/18 17:59 Last Admin: 08/06/18 18:06 Dose: Not Given Admin: 08/06/18 12:42 Dose: Not Given Admin: 08/06/18 06:25 Dose: Not Given Admin: 08/06/18 00:07 Dose: Not Given Admin: 08/05/18 18:23 Dose: Not Given Ioversol (Optiray 320 100ml) 94 ml IV ONCE PRN PRN Reason: Interaction Checking Stop: 08/09/18 13:05 Last Admin: 08/05/18 13:06 Dose: 94 ml Ketorolac Tromethamine (Toradol) 30 mg IV NOW STA Stop: 08/05/18 14:10 Last Admin: 08/05/18 14:59 Dose: Not Given Metoclopramide HCl (Reglan) 10 mg IV NOW STA Stop: 08/05/18 13:39 Last Admin: 08/05/18 13:42 Dose: 10 mg Morphine Sulfate (Morphine Sulfate) 2 mg IV NOW STA Stop: 08/05/18 12:34 Last Admin: 08/05/18 12:46 Dose: 2 mg Ondansetron HCl (Zofran) 4 mg IV NOW STA Stop: 08/05/18 12:34 Last Admin: 08/05/18 12:46 Dose: 4 mg Ondansetron HCl (Zofran) 4 mg IV NOW STA Stop: 08/05/18 14:10 Last Admin: 08/05/18 15:00 Dose: Not Given Medical Decision Making Differential Diagnosis Etiologies such as appendicitis, diverticulitis, PUD, biliary pathology, UTI, pancreatitis, obstruction, mesenteric ischemia, aortic pathology, infections, inflammatory bowel disease, renal colic, as well as others were entertained. Medical Records Attestation: I reviewed the patient's medical records. Home Medications Current Medication List: was personally reviewed by me Laboratory Data Attestation: I reviewed the patient's lab results. Result diagrams: 08/08/18 08:58 08/08/18 08:58 Lab Results 08/05/18 08/05/18 08/05/18 Range/Units 11:50 11:50 11:50 WBC 13.03 H (4.8-10.8) K/uL RBC 5.22 (4.7-6.1) M/uL Hgb 15.4 (14.0-18.0) g/dL POC Hgb (14.0-18.0) g/dl Hct 45.0 (42-52) % POC Hct (42-52) % MCV 86.2 (80-100) fL MCH 29.5 (25-34) pg MCHC 34.2 (32-36) g/dL RDW Std Deviation 42.4 (36.4-46.3) fL RDW Coeff of Lin 13.4 (11.5-14.5) % Plt Count 204 (130-400) K/uL MPV 10.9 H (7.4-10.4) fL Immature Gran % (Auto) 0.2 % Neut % (Auto) 84.6 % Lymph % (Auto) 8.7 % [place] % (Auto) 6.3 % Eos % (Auto) 0.0 % Baso % (Auto) 0.2 % Immature Gran # (Auto) 0.03 H (0.00-0.02) K/uL Neut # (Auto) 11.02 H (1.4-6.5) K/uL Lymph # (Auto) 1.14 L (1.2-3.4) K/uL [place] # (Auto) 0.82 H (0.11-0.59) K/uL Eos # (Auto) 0.00 (0-0.5) K/uL Baso # (Auto) 0.02 (0-0.2) K/uL PT 14.0 H (9.0-12.0) Seconds INR 1.4 H (0.9-1.1) POC Sodium (135-144) mEq/L Sodium 134 L (136-145) mmol/L POC Potassium (3.3-5.0) mEq/L Potassium 4.0 (3.5-5.1) mmol/L POC Chloride (101-112) mEq/L Chloride 101 (98-107) mmol/L Carbon Dioxide 27 (21-32) mmol/L POC Total CO2 (24-31) mEq/l Anion Gap 6.0 (3-11) POC Anion Gap (16-25) mmol/L POC BUN (7-18) mg/dl BUN 21 H (7-18) mg/dl Creatinine 1.55 H (0.6-1.4) mg/dl POC Creatinine (0.6-1.3) mg/dl Est Cr Clr Drug Dosing 34.7 ml/min Est GFR ( Amer) 46.0 Est GFR (Non-Af Amer) 39.7 BUN/Creatinine Ratio 13.7 (10-20) Glucose 166 H (70-99) mg/dl POC Glucose (70-99) POC Glucose (other) (70-99) mg/dl Calcium 9.3 (8.5-10.1) mg/dl POC Ioniz Calcium Drake (1.12-1.32) mmol/l Magnesium (1.8-2.4) mg/dl Total Bilirubin 0.9 (0.2-1) mg/dl Direct Bilirubin (0-0.2) mg/dl AST 225 H (15-37) U/L ALT 105 H (12-78) U/L Alkaline Phosphatase 84 (45-117) U/L Total Creatine Kinase 8706 H (39-308) U/L CK-MB (CK-2) 14.4 H (0.5-3.6) ng/ml CK/CKMB % Calc 0.2 (0-3.0) Troponin I 0.467 H* (0-0.045) ng/ml Total Protein 8.1 (6.4-8.2) gm/dl Albumin 3.4 (3.4-5.0) gm/dl Globulin 4.7 H (2.5-4.0) gm/dl Albumin/Globulin Ratio 0.7 L (0.9-2) Lipase 89 (73-393) U/L 08/05/18 08/05/18 08/05/18 Range/Units 12:48 18:13 18:13 WBC (4.8-10.8) K/uL RBC (4.7-6.1) M/uL Hgb (14.0-18.0) g/dL POC Hgb 14.6 (14.0-18.0) g/dl Hct (42-52) % POC Hct 43 (42-52) % MCV (80-100) fL MCH (25-34) pg MCHC (32-36) g/dL RDW Std Deviation (36.4-46.3) fL RDW Coeff of Lin (11.5-14.5) % Plt Count (130-400) K/uL MPV (7.4-10.4) fL Immature Gran % (Auto) % Neut % (Auto) % Lymph % (Auto) % [place] % (Auto) % Eos % (Auto) % Baso % (Auto) % Immature Gran # (Auto) (0.00-0.02) K/uL Neut # (Auto) (1.4-6.5) K/uL Lymph # (Auto) (1.2-3.4) K/uL [place] # (Auto) (0.11-0.59) K/uL Eos # (Auto) (0-0.5) K/uL Baso # (Auto) (0-0.2) K/uL PT (9.0-12.0) Seconds INR (0.9-1.1) POC Sodium 136 (135-144) mEq/L Sodium (136-145) mmol/L POC Potassium 4.2 (3.3-5.0) mEq/L Potassium (3.5-5.1) mmol/L POC Chloride 99 L (101-112) mEq/L Chloride (98-107) mmol/L Carbon Dioxide (21-32) mmol/L POC Total CO2 24 (24-31) mEq/l Anion Gap (3-11) POC Anion Gap 18.0 (16-25) mmol/L POC BUN 21 H (7-18) mg/dl BUN (7-18) mg/dl Creatinine (0.6-1.4) mg/dl POC Creatinine 1.4 H (0.6-1.3) mg/dl Est Cr Clr Drug Dosing ml/min Est GFR ( Amer) Est GFR (Non-Af Amer) BUN/Creatinine Ratio (10-20) Glucose (70-99) mg/dl POC Glucose 113 H (70-99) POC Glucose (other) 161 H (70-99) mg/dl Calcium (8.5-10.1) mg/dl POC Ioniz Calcium Drake 1.16 (1.12-1.32) mmol/l Magnesium (1.8-2.4) mg/dl Total Bilirubin (0.2-1) mg/dl Direct Bilirubin (0-0.2) mg/dl AST (15-37) U/L ALT (12-78) U/L Alkaline Phosphatase (45-117) U/L Total Creatine Kinase (39-308) U/L CK-MB (CK-2) (0.5-3.6) ng/ml CK/CKMB % Calc (0-3.0) Troponin I 0.471 H* (0-0.045) ng/ml Total Protein (6.4-8.2) gm/dl Albumin (3.4-5.0) gm/dl Globulin (2.5-4.0) gm/dl Albumin/Globulin Ratio (0.9-2) Lipase (73-393) U/L 08/05/18 08/06/18 08/06/18 Range/Units 23:27 00:06 06:18 WBC 10.81 H (4.8-10.8) K/uL RBC 4.42 L (4.7-6.1) M/uL Hgb 12.9 L (14.0-18.0) g/dL POC Hgb (14.0-18.0) g/dl Hct 38.3 L (42-52) % POC Hct (42-52) % MCV 86.7 (80-100) fL MCH 29.2 (25-34) pg MCHC 33.7 (32-36) g/dL RDW Std Deviation 42.5 (36.4-46.3) fL RDW Coeff of Lin 13.3 (11.5-14.5) % Plt Count 174 (130-400) K/uL MPV 10.7 H (7.4-10.4) fL Immature Gran % (Auto) 0.3 % Neut % (Auto) 75.4 % Lymph % (Auto) 13.4 % [place] % (Auto) 10.2 % Eos % (Auto) 0.4 % Baso % (Auto) 0.3 % Immature Gran # (Auto) 0.03 H (0.00-0.02) K/uL Neut # (Auto) 8.16 H (1.4-6.5) K/uL Lymph # (Auto) 1.45 (1.2-3.4) K/uL [place] # (Auto) 1.10 H (0.11-0.59) K/uL Eos # (Auto) 0.04 (0-0.5) K/uL Baso # (Auto) 0.03 (0-0.2) K/uL PT (9.0-12.0) Seconds INR (0.9-1.1) POC Sodium (135-144) mEq/L Sodium (136-145) mmol/L POC Potassium (3.3-5.0) mEq/L Potassium (3.5-5.1) mmol/L POC Chloride (101-112) mEq/L Chloride (98-107) mmol/L Carbon Dioxide (21-32) mmol/L POC Total CO2 (24-31) mEq/l Anion Gap (3-11) POC Anion Gap (16-25) mmol/L POC BUN (7-18) mg/dl BUN (7-18) mg/dl Creatinine (0.6-1.4) mg/dl POC Creatinine (0.6-1.3) mg/dl Est Cr Clr Drug Dosing ml/min Est GFR ( Amer) Est GFR (Non-Af Amer) BUN/Creatinine Ratio (10-20) Glucose (70-99) mg/dl POC Glucose 132 H (70-99) POC Glucose (other) (70-99) mg/dl Calcium (8.5-10.1) mg/dl POC Ioniz Calcium Drake (1.12-1.32) mmol/l Magnesium (1.8-2.4) mg/dl Total Bilirubin (0.2-1) mg/dl Direct Bilirubin (0-0.2) mg/dl AST (15-37) U/L ALT (12-78) U/L Alkaline Phosphatase (45-117) U/L Total Creatine Kinase (39-308) U/L CK-MB (CK-2) (0.5-3.6) ng/ml CK/CKMB % Calc (0-3.0) Troponin I 0.504 H* (0-0.045) ng/ml Total Protein (6.4-8.2) gm/dl Albumin (3.4-5.0) gm/dl Globulin (2.5-4.0) gm/dl Albumin/Globulin Ratio (0.9-2) Lipase (73-393) U/L 08/06/18 08/06/18 08/06/18 Range/Units 06:18 06:18 07:28 WBC (4.8-10.8) K/uL RBC (4.7-6.1) M/uL Hgb (14.0-18.0) g/dL POC Hgb (14.0-18.0) g/dl Hct (42-52) % POC Hct (42-52) % MCV (80-100) fL MCH (25-34) pg MCHC (32-36) g/dL RDW Std Deviation (36.4-46.3) fL RDW Coeff of Lin (11.5-14.5) % Plt Count (130-400) K/uL MPV (7.4-10.4) fL Immature Gran % (Auto) % Neut % (Auto) % Lymph % (Auto) % [place] % (Auto) % Eos % (Auto) % Baso % (Auto) % Immature Gran # (Auto) (0.00-0.02) K/uL Neut # (Auto) (1.4-6.5) K/uL Lymph # (Auto) (1.2-3.4) K/uL [place] # (Auto) (0.11-0.59) K/uL Eos # (Auto) (0-0.5) K/uL Baso # (Auto) (0-0.2) K/uL PT (9.0-12.0) Seconds INR (0.9-1.1) POC Sodium (135-144) mEq/L Sodium 136 (136-145) mmol/L POC Potassium (3.3-5.0) mEq/L Potassium 3.7 (3.5-5.1) mmol/L POC Chloride (101-112) mEq/L Chloride 105 (98-107) mmol/L Carbon Dioxide 26 (21-32) mmol/L POC Total CO2 (24-31) mEq/l Anion Gap 5.0 (3-11) POC Anion Gap (16-25) mmol/L POC BUN (7-18) mg/dl BUN 24 H (7-18) mg/dl Creatinine 1.52 H (0.6-1.4) mg/dl POC Creatinine (0.6-1.3) mg/dl Est Cr Clr Drug Dosing 35.4 ml/min Est GFR ( Amer) 47.1 Est GFR (Non-Af Amer) 40.6 BUN/Creatinine Ratio 15.8 (10-20) Glucose 125 H (70-99) mg/dl POC Glucose 127 H 124 H (70-99) POC Glucose (other) (70-99) mg/dl Calcium 8.4 L (8.5-10.1) mg/dl POC Ioniz Calcium Drake (1.12-1.32) mmol/l Magnesium 2.1 (1.8-2.4) mg/dl Total Bilirubin (0.2-1) mg/dl Direct Bilirubin (0-0.2) mg/dl AST (15-37) U/L ALT (12-78) U/L Alkaline Phosphatase (45-117) U/L Total Creatine Kinase (39-308) U/L CK-MB (CK-2) (0.5-3.6) ng/ml CK/CKMB % Calc (0-3.0) Troponin I (0-0.045) ng/ml Total Protein (6.4-8.2) gm/dl Albumin (3.4-5.0) gm/dl Globulin (2.5-4.0) gm/dl Albumin/Globulin Ratio (0.9-2) Lipase (73-393) U/L 08/06/18 08/06/18 08/06/18 Range/Units 10:15 10:15 11:22 WBC (4.8-10.8) K/uL RBC (4.7-6.1) M/uL Hgb (14.0-18.0) g/dL POC Hgb (14.0-18.0) g/dl Hct (42-52) % POC Hct (42-52) % MCV (80-100) fL MCH (25-34) pg MCHC (32-36) g/dL RDW Std Deviation (36.4-46.3) fL RDW Coeff of Lin (11.5-14.5) % Plt Count (130-400) K/uL MPV (7.4-10.4) fL Immature Gran % (Auto) % Neut % (Auto) % Lymph % (Auto) % [place] % (Auto) % Eos % (Auto) % Baso % (Auto) % Immature Gran # (Auto) (0.00-0.02) K/uL Neut # (Auto) (1.4-6.5) K/uL Lymph # (Auto) (1.2-3.4) K/uL [place] # (Auto) (0.11-0.59) K/uL Eos # (Auto) (0-0.5) K/uL Baso # (Auto) (0-0.2) K/uL PT (9.0-12.0) Seconds INR (0.9-1.1) POC Sodium (135-144) mEq/L Sodium (136-145) mmol/L POC Potassium (3.3-5.0) mEq/L Potassium (3.5-5.1) mmol/L POC Chloride (101-112) mEq/L Chloride (98-107) mmol/L Carbon Dioxide (21-32) mmol/L POC Total CO2 (24-31) mEq/l Anion Gap (3-11) POC Anion Gap (16-25) mmol/L POC BUN (7-18) mg/dl BUN (7-18) mg/dl Creatinine (0.6-1.4) mg/dl POC Creatinine (0.6-1.3) mg/dl Est Cr Clr Drug Dosing ml/min Est GFR ( Amer) Est GFR (Non-Af Amer) BUN/Creatinine Ratio (10-20) Glucose (70-99) mg/dl POC Glucose 114 H (70-99) POC Glucose (other) (70-99) mg/dl Calcium (8.5-10.1) mg/dl POC Ioniz Calcium Drake (1.12-1.32) mmol/l Magnesium (1.8-2.4) mg/dl Total Bilirubin 0.8 (0.2-1) mg/dl Direct Bilirubin 0.2 (0-0.2) mg/dl AST 221 H (15-37) U/L ALT 89 H (12-78) U/L Alkaline Phosphatase 62 (45-117) U/L Total Creatine Kinase 5528 H (39-308) U/L CK-MB (CK-2) (0.5-3.6) ng/ml CK/CKMB % Calc (0-3.0) Troponin I (0-0.045) ng/ml Total Protein 6.3 L D (6.4-8.2) gm/dl Albumin 2.5 L (3.4-5.0) gm/dl Globulin (2.5-4.0) gm/dl Albumin/Globulin Ratio (0.9-2) Lipase (73-393) U/L 08/06/18 08/06/18 08/06/18 Range/Units 17:32 21:26 21:28 WBC (4.8-10.8) K/uL RBC (4.7-6.1) M/uL Hgb (14.0-18.0) g/dL POC Hgb (14.0-18.0) g/dl Hct (42-52) % POC Hct (42-52) % MCV (80-100) fL MCH (25-34) pg MCHC (32-36) g/dL RDW Std Deviation (36.4-46.3) fL RDW Coeff of Lin (11.5-14.5) % Plt Count (130-400) K/uL MPV (7.4-10.4) fL Immature Gran % (Auto) % Neut % (Auto) % Lymph % (Auto) % [place] % (Auto) % Eos % (Auto) % Baso % (Auto) % Immature Gran # (Auto) (0.00-0.02) K/uL Neut # (Auto) (1.4-6.5) K/uL Lymph # (Auto) (1.2-3.4) K/uL [place] # (Auto) (0.11-0.59) K/uL Eos # (Auto) (0-0.5) K/uL Baso # (Auto) (0-0.2) K/uL PT (9.0-12.0) Seconds INR (0.9-1.1) POC Sodium (135-144) mEq/L Sodium (136-145) mmol/L POC Potassium (3.3-5.0) mEq/L Potassium (3.5-5.1) mmol/L POC Chloride (101-112) mEq/L Chloride (98-107) mmol/L Carbon Dioxide (21-32) mmol/L POC Total CO2 (24-31) mEq/l Anion Gap (3-11) POC Anion Gap (16-25) mmol/L POC BUN (7-18) mg/dl BUN (7-18) mg/dl Creatinine (0.6-1.4) mg/dl POC Creatinine (0.6-1.3) mg/dl Est Cr Clr Drug Dosing ml/min Est GFR ( Amer) Est GFR (Non-Af Amer) BUN/Creatinine Ratio (10-20) Glucose (70-99) mg/dl POC Glucose 126 H 307 H 300 H (70-99) POC Glucose (other) (70-99) mg/dl Calcium (8.5-10.1) mg/dl POC Ioniz Calcium Drake (1.12-1.32) mmol/l Magnesium (1.8-2.4) mg/dl Total Bilirubin (0.2-1) mg/dl Direct Bilirubin (0-0.2) mg/dl AST (15-37) U/L ALT (12-78) U/L Alkaline Phosphatase (45-117) U/L Total Creatine Kinase (39-308) U/L CK-MB (CK-2) (0.5-3.6) ng/ml CK/CKMB % Calc (0-3.0) Troponin I (0-0.045) ng/ml Total Protein (6.4-8.2) gm/dl Albumin (3.4-5.0) gm/dl Globulin (2.5-4.0) gm/dl Albumin/Globulin Ratio (0.9-2) Lipase (73-393) U/L 08/07/18 08/07/18 08/07/18 Range/Units 06:43 06:43 07:43 WBC 12.17 H (4.8-10.8) K/uL RBC 4.42 L (4.7-6.1) M/uL Hgb 12.6 L (14.0-18.0) g/dL POC Hgb (14.0-18.0) g/dl Hct 38.3 L (42-52) % POC Hct (42-52) % MCV 86.7 (80-100) fL MCH 28.5 (25-34) pg MCHC 32.9 (32-36) g/dL RDW Std Deviation 42.8 (36.4-46.3) fL RDW Coeff of Lin 13.4 (11.5-14.5) % Plt Count 168 (130-400) K/uL MPV 10.9 H (7.4-10.4) fL Immature Gran % (Auto) 0.4 % Neut % (Auto) 79.9 % Lymph % (Auto) 8.4 % [place] % (Auto) 8.2 % Eos % (Auto) 3.0 % Baso % (Auto) 0.1 % Immature Gran # (Auto) 0.05 H (0.00-0.02) K/uL Neut # (Auto) 9.73 H (1.4-6.5) K/uL Lymph # (Auto) 1.02 L (1.2-3.4) K/uL [place] # (Auto) 1.00 H (0.11-0.59) K/uL Eos # (Auto) 0.36 (0-0.5) K/uL Baso # (Auto) 0.01 (0-0.2) K/uL PT (9.0-12.0) Seconds INR (0.9-1.1) POC Sodium (135-144) mEq/L Sodium 138 (136-145) mmol/L POC Potassium (3.3-5.0) mEq/L Potassium 4.2 (3.5-5.1) mmol/L POC Chloride (101-112) mEq/L Chloride 105 (98-107) mmol/L Carbon Dioxide 25 (21-32) mmol/L POC Total CO2 (24-31) mEq/l Anion Gap 8.0 (3-11) POC Anion Gap (16-25) mmol/L POC BUN (7-18) mg/dl BUN 34 H (7-18) mg/dl Creatinine 1.70 H (0.6-1.4) mg/dl POC Creatinine (0.6-1.3) mg/dl Est Cr Clr Drug Dosing 31.6 ml/min Est GFR ( Amer) 41.1 Est GFR (Non-Af Amer) 35.5 BUN/Creatinine Ratio 19.8 (10-20) Glucose 109 H (70-99) mg/dl POC Glucose 127 H (70-99) POC Glucose (other) (70-99) mg/dl Calcium 8.2 L (8.5-10.1) mg/dl POC Ioniz Calcium Drake (1.12-1.32) mmol/l Magnesium (1.8-2.4) mg/dl Total Bilirubin 0.9 (0.2-1) mg/dl Direct Bilirubin (0-0.2) mg/dl AST 162 H (15-37) U/L ALT 80 H (12-78) U/L Alkaline Phosphatase 58 (45-117) U/L Total Creatine Kinase 2738 H (39-308) U/L CK-MB (CK-2) (0.5-3.6) ng/ml CK/CKMB % Calc (0-3.0) Troponin I (0-0.045) ng/ml Total Protein 6.1 L (6.4-8.2) gm/dl Albumin 2.3 L (3.4-5.0) gm/dl Globulin 3.8 (2.5-4.0) gm/dl Albumin/Globulin Ratio 0.6 L (0.9-2) Lipase (73-393) U/L 08/07/18 08/07/18 08/07/18 Range/Units 11:52 16:25 21:26 WBC (4.8-10.8) K/uL RBC (4.7-6.1) M/uL Hgb (14.0-18.0) g/dL POC Hgb (14.0-18.0) g/dl Hct (42-52) % POC Hct (42-52) % MCV (80-100) fL MCH (25-34) pg MCHC (32-36) g/dL RDW Std Deviation (36.4-46.3) fL RDW Coeff of Lin (11.5-14.5) % Plt Count (130-400) K/uL MPV (7.4-10.4) fL Immature Gran % (Auto) % Neut % (Auto) % Lymph % (Auto) % [place] % (Auto) % Eos % (Auto) % Baso % (Auto) % Immature Gran # (Auto) (0.00-0.02) K/uL Neut # (Auto) (1.4-6.5) K/uL Lymph # (Auto) (1.2-3.4) K/uL [place] # (Auto) (0.11-0.59) K/uL Eos # (Auto) (0-0.5) K/uL Baso # (Auto) (0-0.2) K/uL PT (9.0-12.0) Seconds INR (0.9-1.1) POC Sodium (135-144) mEq/L Sodium (136-145) mmol/L POC Potassium (3.3-5.0) mEq/L Potassium (3.5-5.1) mmol/L POC Chloride (101-112) mEq/L Chloride (98-107) mmol/L Carbon Dioxide (21-32) mmol/L POC Total CO2 (24-31) mEq/l Anion Gap (3-11) POC Anion Gap (16-25) mmol/L POC BUN (7-18) mg/dl BUN (7-18) mg/dl Creatinine (0.6-1.4) mg/dl POC Creatinine (0.6-1.3) mg/dl Est Cr Clr Drug Dosing ml/min Est GFR ( Amer) Est GFR (Non-Af Amer) BUN/Creatinine Ratio (10-20) Glucose (70-99) mg/dl POC Glucose 204 H 199 H 153 H (70-99) POC Glucose (other) (70-99) mg/dl Calcium (8.5-10.1) mg/dl POC Ioniz Calcium Drake (1.12-1.32) mmol/l Magnesium (1.8-2.4) mg/dl Total Bilirubin (0.2-1) mg/dl Direct Bilirubin (0-0.2) mg/dl AST (15-37) U/L ALT (12-78) U/L Alkaline Phosphatase (45-117) U/L Total Creatine Kinase (39-308) U/L CK-MB (CK-2) (0.5-3.6) ng/ml CK/CKMB % Calc (0-3.0) Troponin I (0-0.045) ng/ml Total Protein (6.4-8.2) gm/dl Albumin (3.4-5.0) gm/dl Globulin (2.5-4.0) gm/dl Albumin/Globulin Ratio (0.9-2) Lipase (73-393) U/L 08/08/18 08/08/18 08/08/18 Range/Units 07:21 08:58 08:58 WBC 8.03 (4.8-10.8) K/uL RBC 4.38 L (4.7-6.1) M/uL Hgb 12.5 L (14.0-18.0) g/dL POC Hgb (14.0-18.0) g/dl Hct 37.6 L (42-52) % POC Hct (42-52) % MCV 85.8 (80-100) fL MCH 28.5 (25-34) pg MCHC 33.2 (32-36) g/dL RDW Std Deviation 41.7 (36.4-46.3) fL RDW Coeff of Lin 13.2 (11.5-14.5) % Plt Count 207 (130-400) K/uL MPV 11.0 H (7.4-10.4) fL Immature Gran % (Auto) 0.1 % Neut % (Auto) 71.1 % Lymph % (Auto) 13.2 % [place] % (Auto) 10.3 % Eos % (Auto) 4.9 % Baso % (Auto) 0.4 % Immature Gran # (Auto) 0.01 (0.00-0.02) K/uL Neut # (Auto) 5.71 (1.4-6.5) K/uL Lymph # (Auto) 1.06 L (1.2-3.4) K/uL [place] # (Auto) 0.83 H (0.11-0.59) K/uL Eos # (Auto) 0.39 (0-0.5) K/uL Baso # (Auto) 0.03 (0-0.2) K/uL PT (9.0-12.0) Seconds INR (0.9-1.1) POC Sodium (135-144) mEq/L Sodium 133 L (136-145) mmol/L POC Potassium (3.3-5.0) mEq/L Potassium 3.6 (3.5-5.1) mmol/L POC Chloride (101-112) mEq/L Chloride 102 (98-107) mmol/L Carbon Dioxide 23 (21-32) mmol/L POC Total CO2 (24-31) mEq/l Anion Gap 7.0 (3-11) POC Anion Gap (16-25) mmol/L POC BUN (7-18) mg/dl BUN 25 H (7-18) mg/dl Creatinine 1.56 H (0.6-1.4) mg/dl POC Creatinine (0.6-1.3) mg/dl Est Cr Clr Drug Dosing 34.4 ml/min Est GFR ( Amer) 45.6 Est GFR (Non-Af Amer) 39.4 BUN/Creatinine Ratio 15.8 (10-20) Glucose 200 H (70-99) mg/dl POC Glucose 138 H (70-99) POC Glucose (other) (70-99) mg/dl Calcium 7.8 L (8.5-10.1) mg/dl POC Ioniz Calcium Drake (1.12-1.32) mmol/l Magnesium (1.8-2.4) mg/dl Total Bilirubin 0.6 (0.2-1) mg/dl Direct Bilirubin (0-0.2) mg/dl AST 121 H (15-37) U/L ALT 77 (12-78) U/L Alkaline Phosphatase 65 (45-117) U/L Total Creatine Kinase (39-308) U/L CK-MB (CK-2) (0.5-3.6) ng/ml CK/CKMB % Calc (0-3.0) Troponin I (0-0.045) ng/ml Total Protein 6.3 L (6.4-8.2) gm/dl Albumin 2.3 L (3.4-5.0) gm/dl Globulin 4.0 (2.5-4.0) gm/dl Albumin/Globulin Ratio 0.6 L (0.9-2) Lipase (73-393) U/L 08/08/18 08/08/18 08/08/18 Range/Units 11:22 16:11 19:47 WBC (4.8-10.8) K/uL RBC (4.7-6.1) M/uL Hgb (14.0-18.0) g/dL POC Hgb (14.0-18.0) g/dl Hct (42-52) % POC Hct (42-52) % MCV (80-100) fL MCH (25-34) pg MCHC (32-36) g/dL RDW Std Deviation (36.4-46.3) fL RDW Coeff of Lin (11.5-14.5) % Plt Count (130-400) K/uL MPV (7.4-10.4) fL Immature Gran % (Auto) % Neut % (Auto) % Lymph % (Auto) % [place] % (Auto) % Eos % (Auto) % Baso % (Auto) % Immature Gran # (Auto) (0.00-0.02) K/uL Neut # (Auto) (1.4-6.5) K/uL Lymph # (Auto) (1.2-3.4) K/uL [place] # (Auto) (0.11-0.59) K/uL Eos # (Auto) (0-0.5) K/uL Baso # (Auto) (0-0.2) K/uL PT (9.0-12.0) Seconds INR (0.9-1.1) POC Sodium (135-144) mEq/L Sodium (136-145) mmol/L POC Potassium (3.3-5.0) mEq/L Potassium (3.5-5.1) mmol/L POC Chloride (101-112) mEq/L Chloride (98-107) mmol/L Carbon Dioxide (21-32) mmol/L POC Total CO2 (24-31) mEq/l Anion Gap (3-11) POC Anion Gap (16-25) mmol/L POC BUN (7-18) mg/dl BUN (7-18) mg/dl Creatinine (0.6-1.4) mg/dl POC Creatinine (0.6-1.3) mg/dl Est Cr Clr Drug Dosing ml/min Est GFR ( Amer) Est GFR (Non-Af Amer) BUN/Creatinine Ratio (10-20) Glucose (70-99) mg/dl POC Glucose 241 H 270 H 190 H (70-99) POC Glucose (other) (70-99) mg/dl Calcium (8.5-10.1) mg/dl POC Ioniz Calcium Drake (1.12-1.32) mmol/l Magnesium (1.8-2.4) mg/dl Total Bilirubin (0.2-1) mg/dl Direct Bilirubin (0-0.2) mg/dl AST (15-37) U/L ALT (12-78) U/L Alkaline Phosphatase (45-117) U/L Total Creatine Kinase (39-308) U/L CK-MB (CK-2) (0.5-3.6) ng/ml CK/CKMB % Calc (0-3.0) Troponin I (0-0.045) ng/ml Total Protein (6.4-8.2) gm/dl Albumin (3.4-5.0) gm/dl Globulin (2.5-4.0) gm/dl Albumin/Globulin Ratio (0.9-2) Lipase (73-393) U/L 08/09/18 08/09/18 08/09/18 Range/Units 07:02 11:39 15:30 WBC (4.8-10.8) K/uL RBC (4.7-6.1) M/uL Hgb (14.0-18.0) g/dL POC Hgb (14.0-18.0) g/dl Hct (42-52) % POC Hct (42-52) % MCV (80-100) fL MCH (25-34) pg MCHC (32-36) g/dL RDW Std Deviation (36.4-46.3) fL RDW Coeff of Lin (11.5-14.5) % Plt Count (130-400) K/uL MPV (7.4-10.4) fL Immature Gran % (Auto) % Neut % (Auto) % Lymph % (Auto) % [place] % (Auto) % Eos % (Auto) % Baso % (Auto) % Immature Gran # (Auto) (0.00-0.02) K/uL Neut # (Auto) (1.4-6.5) K/uL Lymph # (Auto) (1.2-3.4) K/uL [place] # (Auto) (0.11-0.59) K/uL Eos # (Auto) (0-0.5) K/uL Baso # (Auto) (0-0.2) K/uL PT (9.0-12.0) Seconds INR (0.9-1.1) POC Sodium (135-144) mEq/L Sodium (136-145) mmol/L POC Potassium (3.3-5.0) mEq/L Potassium (3.5-5.1) mmol/L POC Chloride (101-112) mEq/L Chloride (98-107) mmol/L Carbon Dioxide (21-32) mmol/L POC Total CO2 (24-31) mEq/l Anion Gap (3-11) POC Anion Gap (16-25) mmol/L POC BUN (7-18) mg/dl BUN (7-18) mg/dl Creatinine (0.6-1.4) mg/dl POC Creatinine (0.6-1.3) mg/dl Est Cr Clr Drug Dosing ml/min Est GFR ( Amer) Est GFR (Non-Af Amer) BUN/Creatinine Ratio (10-20) Glucose (70-99) mg/dl POC Glucose 178 H 174 H 166 H (70-99) POC Glucose (other) (70-99) mg/dl Calcium (8.5-10.1) mg/dl POC Ioniz Calcium Drake (1.12-1.32) mmol/l Magnesium (1.8-2.4) mg/dl Total Bilirubin (0.2-1) mg/dl Direct Bilirubin (0-0.2) mg/dl AST (15-37) U/L ALT (12-78) U/L Alkaline Phosphatase (45-117) U/L Total Creatine Kinase (39-308) U/L CK-MB (CK-2) (0.5-3.6) ng/ml CK/CKMB % Calc (0-3.0) Troponin I (0-0.045) ng/ml Total Protein (6.4-8.2) gm/dl Albumin (3.4-5.0) gm/dl Globulin (2.5-4.0) gm/dl Albumin/Globulin Ratio (0.9-2) Lipase (73-393) U/L 08/09/18 Range/Units 16:39 WBC (4.8-10.8) K/uL RBC (4.7-6.1) M/uL Hgb (14.0-18.0) g/dL POC Hgb (14.0-18.0) g/dl Hct (42-52) % POC Hct (42-52) % MCV (80-100) fL MCH (25-34) pg MCHC (32-36) g/dL RDW Std Deviation (36.4-46.3) fL RDW Coeff of Lin (11.5-14.5) % Plt Count (130-400) K/uL MPV (7.4-10.4) fL Immature Gran % (Auto) % Neut % (Auto) % Lymph % (Auto) % [place] % (Auto) % Eos % (Auto) % Baso % (Auto) % Immature Gran # (Auto) (0.00-0.02) K/uL Neut # (Auto) (1.4-6.5) K/uL Lymph # (Auto) (1.2-3.4) K/uL [place] # (Auto) (0.11-0.59) K/uL Eos # (Auto) (0-0.5) K/uL Baso # (Auto) (0-0.2) K/uL PT (9.0-12.0) Seconds INR (0.9-1.1) POC Sodium (135-144) mEq/L Sodium (136-145) mmol/L POC Potassium (3.3-5.0) mEq/L Potassium (3.5-5.1) mmol/L POC Chloride (101-112) mEq/L Chloride (98-107) mmol/L Carbon Dioxide (21-32) mmol/L POC Total CO2 (24-31) mEq/l Anion Gap (3-11) POC Anion Gap (16-25) mmol/L POC BUN (7-18) mg/dl BUN (7-18) mg/dl Creatinine (0.6-1.4) mg/dl POC Creatinine (0.6-1.3) mg/dl Est Cr Clr Drug Dosing ml/min Est GFR ( Amer) Est GFR (Non-Af Amer) BUN/Creatinine Ratio (10-20) Glucose (70-99) mg/dl POC Glucose 173 H (70-99) POC Glucose (other) (70-99) mg/dl Calcium (8.5-10.1) mg/dl POC Ioniz Calcium Drake (1.12-1.32) mmol/l Magnesium (1.8-2.4) mg/dl Total Bilirubin (0.2-1) mg/dl Direct Bilirubin (0-0.2) mg/dl AST (15-37) U/L ALT (12-78) U/L Alkaline Phosphatase (45-117) U/L Total Creatine Kinase (39-308) U/L CK-MB (CK-2) (0.5-3.6) ng/ml CK/CKMB % Calc (0-3.0) Troponin I (0-0.045) ng/ml Total Protein (6.4-8.2) gm/dl Albumin (3.4-5.0) gm/dl Globulin (2.5-4.0) gm/dl Albumin/Globulin Ratio (0.9-2) Lipase (73-393) U/L Imaging Data Radiologist's Impression: Radiology results as stated below per my review and the radiologist's interpretation: CT cervical spine wo con CT DOSE: 352.10 mGy.cm HISTORY: Pain Pt c/o neck pain TECHNIQUE: Multiaxial CT images of the cervical spine were performed and reformatted in the sagittal and coronal plane without the use of contrast. A dose lowering technique was utilized adhering to the principles of ALARA. COMPARISON: None. FINDINGS: No fractures. No subluxation. Prevertebral soft tissues and the C1-C2 interval are intact. No pneumothorax. Considerable degenerative disc changes throughout. Considerable degenerative changes of the lateral elements throughout. IMPRESSION: Considerable degenerative change. No acute bony abnormality. The above report was generated using voice recognition software. It may contain grammatical, syntax or spelling errors. Electronically signed by: Leonid Borrero M.D. 08/05/2018 1:12 PM ABDOMEN AND PELVIS CT WITH IV CONTRAST CT DOSE: 627.68 mGy.cm HISTORY: Complains of epigastric pain. TECHNIQUE: Multiaxial CT images of the abdomen and pelvis were performed following the use of intravenous contrast. A dose lowering technique was utilized adhering to the principles of ALARA. COMPARISON STUDY: None. FINDINGS: Punctate calcified granuloma within the right middle lobe. Mild dependent changes seen at the lung bases. No fractures within the visualized osseous structures. Poststernotomy changes. No pneumoperitoneum. No pneumatosis. Small hiatus hernia. Punctate calcified granulomas seen throughout the liver and spleen. The adrenal glands, pancreas, and kidneys are within normal limits. No hydronephrosis. No retroperitoneal lymphadenopathy. Calcified plaque within the normal caliber abdominal aorta. A 1.5 cm diverticulum at the second portion of the duodenum. There is gallbladder wall thickening and trace pericholecystic fluid. A 1 cm gallstone in a few additional tiny gallstones identified. There is suggestion of a 5 mm stone at the distal common bile duct best seen on image 39 of 100. Therefore, these findings are consistent with acute cholecystitis. The bladder is unremarkable. The prostate gland is enlarged. No bowel wall thickening or obstruction. Colonic diverticulosis. No evidence for diverticulitis. Moderate stool within the colon. No definite bowel wall thickening or obstruction. The appendix not identified and reportedly surgically absent. IMPRESSION: 1. Above findings are consistent with acute cholecystitis. There are few small gallstones identified within the gallbladder. In addition, there is suggestion of a 5 mm stone at the distal common bile duct. Surgical consultation recommended. 2. No bowel wall thickening or obstruction. 3. Additional findings as described above. Electronically signed by: Mark Huang M.D. 08/05/2018 1:28 PM XR chest 1V portable CLINICAL HISTORY: Atypical chest pain COMPARISON STUDY: 04/22/2013 FINDINGS: There are postsurgical changes of midline sternotomy. The heart is mildly enlarged. There is no focal pulmonary consolidation. There is no overt failure. There are no pleural effusions.[ IMPRESSION: No active disease in the chest. Electronically signed by: Luis Manuel Keller M.D. 08/05/2018 12:55 PM ECG Data Attestation: I personally reviewed and interpreted this ECG as follows: Indication: abdominal pain Rate (beats per minute): 96 Rhythm: normal sinus Findings: + other ( old anterior septal infarct.); no ST depression and no ST elevation Comparison ECG Date: no prior available Blood Pressure Blood Pressure Findings: Elevated blood pressure Blood Pressure Disposition: further management by hospitalist LUIS De La Garza This is an 87-year-old who presents emergency department complaining of abdominal pain. Due to the nature of the patient's complaint he was sent for a CAT scan of the abdomen and pelvis. I am concerned that the patient has an elevation in his troponin, white blood cell count, BUN and creatinine as well as a CK. The patient appears to put himself in a mild right rhabdomyolysis and in addition has acute cholecystitis. He was started on antibiotics in the emergency room. I did discuss the case with the on-call surgeon who asked that the patient be admitted to the medicine service. The patient was given morphine for his pain x2. Repeat examination revealed improvement in the patient's symptoms. The patient was gently hydrated for his rhabdo. I did discuss the case with the medicine service who agreed to admit the patient. Patient and family were in agreement with the treatment plan. Impression & Plan Abdominal pain, Acute cholecystitis, Rhabdomyolysis Critical Care Time I have personally spent greater than 30 minutes of critical care time in the direct management of this patient. This includes bedside care, interpretation of diagnostic studies, and testing, discussion with consultants, patient, and family members, and other required patient management activities. This 30 minutes is in excess of all separately billable procedures. Critical Care Time: Yes Total Critical Care Time: 30 Discharge Plan Visit Data *Final* Discharge Date/Time: 08/05/18 16:52 Chief Complaint: Back Injury/Pain ED Provider: Sergio Guardado Problem: Abdominal pain, Acute cholecystitis, Rhabdomyolysis Patient Disposition: Admitted As Inpatient Discharge Instructions Interventions: ED Discharge Assessment Last Done: 08/05/18 16:52 The scribe's documentation has been prepared under my direction and personally reviewed by me in its entirety. I confirm that the note above accurately reflects all work, treatment, procedures, and medical decision making performed by me.
[2018-08-06] MEDS: LACTATED RINGER'S 1,000 ML IV SCH (08:21)
[2018-08-06] MEDS: FINASTERIDE 5 MG TAB PO SCH (08:26)
[2018-08-06] MEDS: METOPROLOL SUCC 50MG EXT REL TAB PO SCH (08:26)
[2018-08-06] MEDS: PANTOprazole 40 MG TAB PO SCH (08:26)
[2018-08-06] MEDS: ATORVASTATIN 40 MG TAB PO SCH (08:26)
--- NOTE | 2018-08-06 08:54 | Cardiology Consultation ---
Date of Consultation August 06, 2018 Assessment & Plan (1) CAD (coronary artery disease): Mr. Hayes is an 87-year-old male with a history of CAD s/p CABG x 1 Vessel (MAIER to LAD) 05/2013, Moderate Aortic Stenosis, Paroxysmal Atrial Fibrillation, Type 2 DM, CKD, Hypertension, and Dyslipidemia who presented acutely ill and was admitted to [facility] on 08/05/2017 with Acute Cholecystitis and a CBD Stone. Cardiology is being consulted for Elevated Troponin I Level and a Preoperative Cardiac Evaluation. Patient has a 90% 1st Diagonal stenosis which was not revascularized with his MAIER to LAD graft in 2012, is acutely ill with his cholecystitis, has not experienced any angina pectoris, and has elevated Troponin I levels of 0.467, 0.471, and 0.504 ng/ml -- which heart 10 X the upper limit of normal (although they only trended up slightly) -- Suspect that this represents an NSTEMI related to acute illness, underlying CAD, and myocardial O2 supply / demand mismatch. -- Echocardiogram is pending. -- Repeat Troponin I level. -- Continue Toprol XL 150 mg daily. -- Continue Aspirin 81 mg daily. -- Continue Atorvastatin 80 mg daily. -- Continue Ramipril 5 mg daily. Present on Admission?: Yes (2) Elevated troponin I level: As stated above. (3) Acute cholecystitis: As managed by Hospitalist, GI, and Surgery. Present on Admission?: Yes (4) Preoperative cardiovascular examination: Patient likely sustained an NSTEMI recently although he has not had any angina pectoris recently or during his current illness. -- If LV systolic function and wall motion are normal -- patient will be at an intermediate risk for cardiac complications with his upcoming procedures. We recommend that the patient take his usual doses of Toprol XL and Aspirin the morning of procedure with sips of water. Present on Admission?: No Supervising Physician Co-Signing Physician Notes Collins Hines MD Patient seen and examined. Agree with above. History of Present Illness Reason for Consultation: -- Elevated Troponin I Level. -- Preoperative Cardiac Evaluation. Requesting Physician: Erick Rodriguez MD Attending Physician: Collins Hines MD History of Present Illness Mr. Hayes is an 87-year-old male with a history of CAD s/p CABG x 1 Vessel (MAIER to LAD), Aortic Stenosis, Paroxysmal Atrial Fibrillation, Type 2 DM, CKD, Hypertension, and Dyslipidemia who was admitted to [facility] on 08/05/2017 with Acute Cholecystitis and a CBD Stone. Cardiology is being consulted for Elevated Troponin I Level and a Preoperative Cardiac Evaluation. Patient has done very from a cardiac standpoint since being bypassed. He is able to work around his house, go for walks, and can easily climb > 2 flights of stairs without limiting cardiopulmonary symptoms. He denies any exertional chest pain, heaviness, tightness, pressure, discomfort, or any angina pectoris. He denies any exertional neck, jaw, back, or arm pain. He denies any SOB, unusual dyspnea on exertion, or any recent changes in his exertional tolerance. He further denies any orthopnea, pnd, palpitations, syncope or near syncope. Moreover, he has not had any angina pectoris at any time during his current illness or in the past couple of weeks. He has had the following Cardiac Studies / Procedures: STRESS ECHOCARDIOGRAM 04/20/13: -- Positive at 96% MPHR, suggesting LAD ischemia. -- Positive exercise ECG returning to baseline in 7 minutes into recovery. -- Chest pain and dyspnea with exercise. -- Exercised only 3 minutes on Adalberto protocol. ECHOCARDIOGRAM 04/20/13: -- Normal LV size, wall motion, systolic function. -- LVEF 65%. -- Moderate LVH. -- Grade 1 diastolic dysfunction. -- Mild to moderate aortic stenosis. -- Mild MR. CARDIAC CATHETERIZATION 04/27/13: -- Diffuse 70% proximal stenoses to mid LAD. -- Mid LAD aneurysmal segment. -- D1 90% Ostial stenosis originating from diseased LAD segment. -- Distal LCx 50%-60% stenosis. -- Dominant RCA. -- Proximal to mid RCA 40%. [place] 1 [place] [facility] [place] -- MAIER to LAD. Echo 09/09/13: Normal LV size, wall motion, systolic function. EF 60-65%. Mild LVH. Mild right atrial dilation. Mild to moderate aortic stenosis with trace AI. Mild MR. RVSP 27 mmHg. Holter 08/25/13: Sinus rhythm. Average heart rate 76 (57-120). Intermittent Mobitz 1 second-degree AV block. Rare PVCs/PACs. Echo 05/06/2016: Normal LV size, wall motion, systolic function. EF 55-60%. Severe LVH. Type 2 diastolic dysfunction. Mild biatrial dilation. Moderate aortic stenosis. Mild MR. RVSP 35. Echo 09/18/2017: Normal LV size, systolic function, wall motion. EF 60-65%. Moderate LVH. Type 2 diastolic dysfunction. Mild left atrial dilation. Moderate aortic stenosis with trace regurgitation. Mild to moderate MR. RVSP 42. Allergies Allergy/AdvReac Type Severity Reaction Status Date / Time No Known Allergies Allergy Unverified 08/05/18 13:22 Home Medications Home Medications Medication Instructions Recorded Confirmed Type acetaminophen [Tylenol Extra 1,000 mg PO Q6H PRN 08/05/18 08/05/18 History Strength] apixaban 2.5 mg PO BID 08/05/18 08/05/18 History aspirin 81 mg PO QAM 08/05/18 08/05/18 History atorvastatin 80 mg PO QAM 08/05/18 08/05/18 History esomeprazole magnesium [Nexium] 40 mg PO QAM 08/05/18 08/05/18 History finasteride 5 mg PO QAM 08/05/18 08/05/18 History glipizide 10 mg PO BID 08/05/18 08/05/18 History metoprolol succinate 150 mg PO QAM 08/05/18 08/05/18 History multivitamin 1 tab PO QAM 08/05/18 08/05/18 History nystatin 1 applic TOPICAL TID 08/05/18 08/05/18 History ramipril 5 mg PO QAM 08/05/18 08/05/18 History sitagliptin 50 mg PO QAM 08/05/18 08/05/18 History terazosin 5 mg PO HS 08/05/18 08/05/18 History triamcinolone acetonide 1 applic TOPICAL TID 08/05/18 08/05/18 History oxycodone-acetaminophen 1 tab PO Q4H PRN #10 tab 08/10/18 Rx Patient History Medical History Acute cholecystitis (Acute) CKD (chronic kidney disease) Aortic stenosis, moderate BPH (benign prostatic hyperplasia) Diabetes mellitus GERD (gastroesophageal reflux disease) HTN (hypertension) PAF (paroxysmal atrial fibrillation) Surgical History S/P CABG (coronary artery bypass graft) S/P appendectomy Social History Current Living Situation: Spouse Other Information That Helps Us Care for You: No Feels Safe at Home: Yes Safety Concerns: Feels Safe At This Time Smoking Status: Former smoker Do You Dip or Chew Tobacco: No Smoking End Date: 1981 Hx Alcohol Use: Yes Alcohol type: other Alcohol Intake Frequency: holidays/ special occasions only Hx Substance Use: No Beliefs That Will Affect Care: Taoist Taoist Beliefs: Alevism Preferred Language: Portuguese Physical Exam 2 Vital Signs (Past 24 Hours): Last Vital Signs Temp 36.5 C 08/06/18 02:25 Pulse 95 H 08/06/18 02:25 Resp 16 08/06/18 02:25 BP 114/63 08/06/18 02:25 Pulse Ox 91 08/06/18 02:25 Physical Exam: GENERAL: Patient is in no acute distress. HEENT: Head is atraumatic, normocephalic. Sclerae anicteric. EOM's intact. Facies symmetric. No perioral cyanosis. NECK: No JVD. Carotid upstrokes are + 2 bilaterally without bruits. JVP is at the level of the clavicle sitting upright. CHEST and LUNGS: Clear to auscultation throughout all lung reeves. No wheezes, rales, or rhonchi. CVS: S1 and S2 are regular with occasional ectopy and a grade 2/6 basal systolic murmur at the right 2nd intercostal space. No obvious diastolic murmurs, gallops, or rubs. PMI is nondisplaced. No lifts, heaves, or thrills. No abdominal aortic or renal bruits. ABDOMEN: Bowels sounds are present. + RUQ tenderness to palpation. EXTREMITIES: No clubbing, cyanosis, or edema. Intact posterior tibial and radial pulses bilaterally. NEUROLOGIC: Patient is awake, alert, and oriented. Pleasant and cooperative. Answers questions appropriately. Normal movement in all 4 extremities. Gait pattern was not assessed. EKG on admission: -- NSR at 96 bpm, left axis deviation, and Q waves present in leads V1 through V3. Results & Data Laboratory Results Laboratory Results - last 24 hr 08/05/18 08/05/18 08/05/18 11:50 11:50 11:50 WBC 13.03 H RBC 5.22 Hgb 15.4 POC Hgb Hct 45.0 POC Hct MCV 86.2 MCH 29.5 MCHC 34.2 RDW Std Deviation 42.4 RDW Coeff of Lin 13.4 Plt Count 204 MPV 10.9 H Immature Gran % (Auto) 0.2 Neut % (Auto) 84.6 Lymph % (Auto) 8.7 [place] % (Auto) 6.3 Eos % (Auto) 0.0 Baso % (Auto) 0.2 Immature Gran # (Auto) 0.03 H Neut # (Auto) 11.02 H Lymph # (Auto) 1.[address] [place] # (Auto) 0.82 H Eos # (Auto) 0.00 Baso # (Auto) 0.02 PT 14.0 H INR 1.4 H POC Sodium Sodium 134 L POC Potassium Potassium 4.0 POC Chloride Chloride 101 Carbon Dioxide 27 POC Total CO2 Anion Gap 6.0 POC Anion Gap POC BUN BUN 21 H Creatinine 1.55 H POC Creatinine Est Cr Clr Drug Dosing 34.7 Est GFR ( Amer) 46.0 Est GFR (Non-Af Amer) 39.7 BUN/Creatinine Ratio 13.7 Glucose 166 H POC Glucose POC Glucose (other) Calcium 9.3 POC Ioniz Calcium Drake Magnesium Total Bilirubin 0.9 AST 225 H ALT 105 H Alkaline Phosphatase 84 Total Creatine Kinase 8706 H CK-MB (CK-2) 14.4 H CK/CKMB % Calc 0.2 Troponin I 0.467 H* Total Protein 8.1 Albumin 3.4 Globulin 4.7 H Albumin/Globulin Ratio 0.7 L Lipase 89 08/05/18 08/05/18 08/05/18 12:48 18:13 18:13 WBC RBC Hgb POC Hgb 14.6 Hct POC Hct 43 MCV MCH MCHC RDW Std Deviation RDW Coeff of Lin Plt Count MPV Immature Gran % (Auto) Neut % (Auto) Lymph % (Auto) [place] % (Auto) Eos % (Auto) Baso % (Auto) Immature Gran # (Auto) Neut # (Auto) Lymph # (Auto) [place] # (Auto) Eos # (Auto) Baso # (Auto) PT INR POC Sodium 136 Sodium POC Potassium 4.2 Potassium POC Chloride 99 L Chloride Carbon Dioxide POC Total CO2 24 Anion Gap POC Anion Gap 18.0 POC BUN 21 H BUN Creatinine POC Creatinine 1.4 H Est Cr Clr Drug Dosing Est GFR ( Amer) Est GFR (Non-Af Amer) BUN/Creatinine Ratio Glucose POC Glucose 113 H POC Glucose (other) 161 H Calcium POC Ioniz Calcium Drake 1.16 Magnesium Total Bilirubin AST ALT Alkaline Phosphatase Total Creatine Kinase CK-MB (CK-2) CK/CKMB % Calc Troponin I 0.471 H* Total Protein Albumin Globulin Albumin/Globulin Ratio Lipase 08/05/18 08/06/18 08/06/18 23:27 00:06 06:18 WBC 10.81 H RBC 4.42 L Hgb 12.9 L POC Hgb Hct 38.3 L POC Hct MCV 86.7 MCH 29.2 MCHC 33.7 RDW Std Deviation 42.5 RDW Coeff of Lin 13.3 Plt Count 174 MPV 10.7 H Immature Gran % (Auto) 0.3 Neut % (Auto) 75.4 Lymph % (Auto) 13.4 [place] % (Auto) 10.2 Eos % (Auto) 0.4 Baso % (Auto) 0.3 Immature Gran # (Auto) 0.03 H Neut # (Auto) 8.16 H Lymph # (Auto) 1.45 [place] # (Auto) 1.10 H Eos # (Auto) 0.04 Baso # (Auto) 0.03 PT INR POC Sodium Sodium POC Potassium Potassium POC Chloride Chloride Carbon Dioxide POC Total CO2 Anion Gap POC Anion Gap POC BUN BUN Creatinine POC Creatinine Est Cr Clr Drug Dosing Est GFR ( Amer) Est GFR (Non-Af Amer) BUN/Creatinine Ratio Glucose POC Glucose 132 H POC Glucose (other) Calcium POC Ioniz Calcium Drake Magnesium Total Bilirubin AST ALT Alkaline Phosphatase Total Creatine Kinase CK-MB (CK-2) CK/CKMB % Calc Troponin I 0.504 H* Total Protein Albumin Globulin Albumin/Globulin Ratio Lipase 08/06/18 08/06/18 08/06/18 06:18 06:18 07:28 WBC RBC Hgb POC Hgb Hct POC Hct MCV MCH MCHC RDW Std Deviation RDW Coeff of Lin Plt Count MPV Immature Gran % (Auto) Neut % (Auto) Lymph % (Auto) [place] % (Auto) Eos % (Auto) Baso % (Auto) Immature Gran # (Auto) Neut # (Auto) Lymph # (Auto) [place] # (Auto) Eos # (Auto) Baso # (Auto) PT INR POC Sodium Sodium 136 POC Potassium Potassium 3.7 POC Chloride Chloride 105 Carbon Dioxide 26 POC Total CO2 Anion Gap 5.0 POC Anion Gap POC BUN BUN 24 H Creatinine 1.52 H POC Creatinine Est Cr Clr Drug Dosing 35.4 Est GFR ( Amer) 47.1 Est GFR (Non-Af Amer) 40.6 BUN/Creatinine Ratio 15.8 Glucose 125 H POC Glucose 127 H 124 H POC Glucose (other) Calcium 8.4 L POC Ioniz Calcium Drake Magnesium 2.1 Total Bilirubin AST ALT Alkaline Phosphatase Total Creatine Kinase CK-MB (CK-2) CK/CKMB % Calc Troponin I Total Protein Albumin Globulin Albumin/Globulin Ratio Lipase Medications Administered Active Medications Generic Name Dose Route Start Last Admin Trade Name Freq PRN Reason Stop Dose Admin Atorvastatin Calcium 80 mg 08/06/18 09:00 08/06/18 08:26 Lipitor PO 09/05/18 08:59 80 mg QAM RERE Administration Finasteride 5 mg 08/06/18 09:00 08/06/18 08:26 Proscar PO 09/05/18 08:59 5 mg QAM RERE Administration Hydromorphone HCl 0.5 mg 08/05/18 17:48 Dilaudid IV 08/19/18 17:47 Q4H PRN Pain Lactated Ringer's 1,000 mls @ 80 mls/hr 08/05/18 17:48 08/06/18 08:21 Lr IV 08/06/18 18:47 80 mls/hr .[id number] RERE Administration Piperacillin Sod/Tazobactam Sod 3.375 gm in 115 mls @ 28.75 mls/hr 08/06/18 00 :00 08/06/18 08:23 Zosyn IV 08/16/18 00:00 30 mls/hr Q8H RERE Administration Protocol Insulin Aspart 0 units 08/05/18 18:00 08/06/18 06:25 Novolog Flexpen SC 09/04/18 17:59 Not Given Q6 RERE Ioversol 94 ml 08/05/18 13:06 08/05/18 13:06 Optiray 320 100ml IV 08/09/18 13:05 94 ml ONCE PRN Administration Interaction Checking Metoprolol Succinate 150 mg 08/06/18 09:00 08/06/18 08:26 Toprol Xl PO 09/05/18 08:59 150 mg QAM RERE Administration Miscellaneous Information 1 ea 08/05/18 17:48 Consult N/A 09/04/18 17:47 UD PRN Consult Ondansetron HCl 4 mg 08/05/18 17:48 Zofran IV 09/04/18 17:47 Q8H PRN nausea/vomiting Pantoprazole Sodium 40 mg 08/06/18 09:00 08/06/18 08:26 Protonix PO 09/05/18 08:59 40 mg QAM RERE Administration Terazosin HCl 5 mg 08/05/18 21:00 08/05/18 20:39 Hytrin PO 09/04/18 20:59 5 mg HS RERE Administration
--- NOTE | 2018-08-06 10:41 | Anesthesiology Consultation ---
Date of Service August 06, 2018 Assessment & Plan (1) Encounter for pre-operative examination: Chart Review Chart Review: Acceptable Risk for Surgery Consults Requested none History Surgery Operation Date: 08/06/18 07:15 Proposed Procedures p Endoscopic Retrograde Cholangiopancreatogram - Vera Manrique MD Height/Weight Height: 5 ft 10 in Weight: 80.7 kg Allergies Allergy/AdvReac Type Severity Reaction Status Date / Time No Known Allergies Allergy Unverified 08/05/18 13:22 Medications Home Medications Medication Instructions Recorded Confirmed Last Taken acetaminophen [Tylenol Extra 1,000 mg PO Q6H PRN 08/05/18 08/05/18 08/03/18 Strength] apixaban [Eliquis] 2.5 mg PO BID 08/05/18 08/05/18 08/04/18 aspirin 81 mg PO QAM 08/05/18 08/05/18 08/04/18 atorvastatin 80 mg PO QAM 08/05/18 08/05/18 08/04/18 esomeprazole magnesium [Nexium] 40 mg PO QAM 08/05/18 08/05/18 08/05/18 finasteride 5 mg PO QAM 08/05/18 08/05/18 08/04/18 glipizide 10 mg PO BID 08/05/18 08/05/18 08/04/18 metoprolol succinate 150 mg PO QAM 08/05/18 08/05/18 08/04/18 multivitamin 1 tab PO QAM 08/05/18 08/05/18 08/04/18 nystatin 1 applic TOPICAL TID 08/05/18 08/05/18 08/04/18 ramipril 5 mg PO QAM 08/05/18 08/05/18 08/04/18 sitagliptin [Januvia] 50 mg PO QAM 08/05/18 08/05/18 08/04/18 terazosin 5 mg PO HS 08/05/18 08/05/18 08/04/18 triamcinolone acetonide 1 applic TOPICAL TID 08/05/18 08/05/18 08/04/18 Active Medications Generic Name Dose Route Start Last Admin Trade Name Freq PRN Reason Stop Dose Admin Atorvastatin Calcium 80 mg 08/06/18 09:00 08/06/18 08:26 Lipitor PO 09/05/18 08:59 80 mg QAM RERE Administration Finasteride 5 mg 08/06/18 09:00 08/06/18 08:26 Proscar PO 09/05/18 08:59 5 mg QAM RERE Administration Lactated Ringer's 1,000 mls @ 80 mls/hr 08/05/18 17:48 08/06/18 08:21 Lr IV 08/06/18 18:47 80 mls/hr .[id number] RERE Administration Piperacillin Sod/Tazobactam Sod 3.375 gm in 115 mls @ 28.75 mls/hr 08/06/18 00 :00 08/06/18 08:23 Zosyn IV 08/16/18 00:00 30 mls/hr Q8H RERE Administration Protocol Insulin Aspart 0 units 08/05/18 18:00 08/06/18 06:25 Novolog Flexpen SC 09/04/18 17:59 Not Given Q6 RERE Ioversol 94 ml 08/05/18 13:06 08/05/18 13:06 Optiray 320 100ml IV 08/09/18 13:05 94 ml ONCE PRN Administration Interaction Checking Metoprolol Succinate 150 mg 08/06/18 09:00 08/06/18 08:26 Toprol Xl PO 09/05/18 08:59 150 mg QAM RERE Administration Pantoprazole Sodium 40 mg 08/06/18 09:00 08/06/18 08:26 Protonix PO 09/05/18 08:59 40 mg QAM RERE Administration Terazosin HCl 5 mg 08/05/18 21:00 08/05/18 20:39 Hytrin PO 09/04/18 20:59 5 mg HS RERE Administration Past Medical History Medical History Acute cholecystitis (Acute) CKD (chronic kidney disease) Aortic stenosis, moderate BPH (benign prostatic hyperplasia) Diabetes mellitus GERD (gastroesophageal reflux disease) HTN (hypertension) PAF (paroxysmal atrial fibrillation) Past Surgical History Surgical History S/P CABG (coronary artery bypass graft) S/P appendectomy Past Anesthesia History No Hx of Anesthesia Complications History of PONV No Motion Sickness Screening History of Motion Sickness: No Social History Smoking Status: Former smoker Do You Dip or Chew Tobacco: No Smoking End Date: 1981 Hx Alcohol Use: Yes Alcohol type: other alcohol intake frequency: holidays/special occasions only Hx Substance Use: No Exercise / Class Metabolic Activity II 4-5 Yardwork/Stairs/Walk up hill Physical Exam Vital Signs Last Vital Signs Temp 99.0 F 08/06/18 08:00 Pulse 88 08/06/18 08:00 Resp 20 08/06/18 08:00 BP 117/74 08/06/18 08:00 Pulse Ox 95 08/06/18 08:00 ENMT Mouth: + dentures Thyromental Distance: < 3.5 Finger Breadths Mallampati Class: III Neck normal visual inspection and + limited neck extension Respiratory Auscultation: lungs clear to auscultation bilaterally Cardiovascular Rate/Rhythm: regular rate and regular rhythm Heart Sounds: + murmur (HARSH 3/6) Testing Electrocardiogram Date: 08/05/18 Findings: + NSR @ (96 bpm) left axis deviation anteroseptal infarct Chest X-Ray Date: 08/05/18 Findings: + NAD Echocardiogram Date: 09/18/17 EF: 60-65% LV Function: normal RWMA: + none Other Findings: + LVH (moderate) and + diastolic dysfunction (type 2) Valvular Disease: + (moderate, PARVEEN 1.1 cm2, aortic mean pressure gradient = 26 mm Hg) and + MR (mild to moderate) mild left atrial dilation mildly elevated RVSP, 42 mmHg Laboratory Results 08/06/18 06:18 08/06/18 06:18 PT 14.0 Seconds (9.0-12.0) H 08/05/18 11:50 INR 1.4 (0.9-1.1) H 08/05/18 11:50 08/06/18 08/06/18 08/06/18 07:28 06:18 00:06 POC Glucose 124 H 127 H 132 H
--- NOTE | 2018-08-06 10:58 | Gastrointestinal Consultation ---
Date of Consultation August 06, 2018 Assessment & Plan (1) Abdominal pain: Present on Admission?: Yes (2) Acute cholecystitis: Present on Admission?: Yes (3) Rhabdomyolysis: Present on Admission?: Yes (4) Choledocholithiasis: Though his clinical presentation is a bit complicated by a recent fall and rhabdomyalisis and LFTs could be elevated from that issue, they have remained elevated over night with fluids, rest (would expect them to decrease if only from rhabdo). Agree with antibiotics for coverage of cholangitis. Keep NPO Will go forward with ERCP this afternoon by Dr. Jameson. Continue to follow LFTs. Appreciate surgical opinion. Will benefit from eventual cholecystectomy. Present on Admission?: Yes Supervising Physician Co-Signing Physician Notes I have personally seen and examined the patient with IVAN Argueta. Her note reflects my exam and findings. I agree with her impression and plan. Patient does describe some RUQ discomfort and "not feeling well" for the greater part of a week. Symptoms and presentation for gall stone/biliary disease and cholangitis/cholecystitis. ERCP to clear duct today. Bernardo Spencer M.D. History of Present Illness Reason for Consultation: CBD stone Requesting Physician: Dr. Louie Attending Physician: Jenny Fry History of Present Illness Mr. Hayes is an 87 yr old male with a hx of CAD s/p CABG x 1 Vessel in 2012 , Aortic Stenosis, A fib on Eliquis, DM-2, CKD, HTN, and Hyperlipidemia who fell around 11PM on Thursday night and was found on the floor around 7AM yesterday. He was brought to [facility]. On arrival, WBC, CK and troponin were elevated as well as transaminases: WBC 13->10, CK 8k, Toponinin .4->.4->.5; AST 225, ALT 105. Tili and Alk Phos were normal. CT and US with a 5mm distal CBD stone as well as suggestion of acute cholecystitis. Surgery has consulted GI for opinion regarding CBD stone. He is on Zosyn, cefoxitin. The pt is seen and examined with his son and also answering questions. He reports, "not feeling well," for 2 weeks. His explains that he has been "lethargic, and just not himself." In the past few days, he has had abdominal pain, indicating the periumbilical area. Allergies Allergy/AdvReac Type Severity Reaction Status Date / Time No Known Allergies Allergy Unverified 08/05/18 13:22 Home Medications Home Medications Medication Instructions Recorded Confirmed Type acetaminophen [Tylenol Extra 1,000 mg PO Q6H PRN 08/05/18 08/05/18 History Strength] apixaban [Eliquis] 2.5 mg PO BID 08/05/18 08/05/18 History aspirin 81 mg PO QAM 08/05/18 08/05/18 History atorvastatin 80 mg PO QAM 08/05/18 08/05/18 History esomeprazole magnesium [Nexium] 40 mg PO QAM 08/05/18 08/05/18 History finasteride 5 mg PO QAM 08/05/18 08/05/18 History glipizide 10 mg PO BID 08/05/18 08/05/18 History metoprolol succinate 150 mg PO QAM 08/05/18 08/05/18 History multivitamin 1 tab PO QAM 08/05/18 08/05/18 History nystatin 1 applic TOPICAL TID 08/05/18 08/05/18 History ramipril 5 mg PO QAM 08/05/18 08/05/18 History sitagliptin [Januvia] 50 mg PO QAM 08/05/18 08/05/18 History terazosin 5 mg PO HS 08/05/18 08/05/18 History triamcinolone acetonide 1 applic TOPICAL TID 08/05/18 08/05/18 History Patient History Medical History Acute cholecystitis (Acute) CKD (chronic kidney disease) Aortic stenosis, moderate BPH (benign prostatic hyperplasia) Diabetes mellitus GERD (gastroesophageal reflux disease) HTN (hypertension) PAF (paroxysmal atrial fibrillation) Surgical History S/P CABG (coronary artery bypass graft) S/P appendectomy Social History Current Living Situation: Spouse Other Information That Helps Us Care for You: No Feels Safe at Home: Yes Safety Concerns: Feels Safe At This Time Smoking Status: Former smoker Do You Dip or Chew Tobacco: No Smoking End Date: 1981 Hx Alcohol Use: Yes Alcohol type: other Alcohol Intake Frequency: holidays/ special occasions only Hx Substance Use: No Beliefs That Will Affect Care: Yazdanism Yazdanism Beliefs: Amish Preferred Language: Albanian Communication Ability: Effective [employer] Field Coordinator Required: No Review of Systems Constitutional: + fatigue and + weakness; no fever, no chills and no sweats no icterus Respiratory: no cough, no chest congestion and no dyspnea Cardiovascular: no chest pain, no dyspnea on exertion and no edema Gastrointestinal: + abdominal pain; no nausea, no vomiting, no constipation and no diarrhea/loose stools Genitourinary (Male): no dysuria, no hematuria and no flank pain Psychiatric: + change in appetite (decreased); no behavioral changes, no depression and no hopelessness Hematologic / Lymphatic: + easy bleeding (on Eliquis) and + easy bruising; no lymphadenopathy Physical Exam 2 Vital Signs (Past 24 Hours): Last Vital Signs Temp 37.2 C 08/06/18 08:00 Pulse 88 08/06/18 08:00 Resp 20 08/06/18 08:00 BP 117/74 08/06/18 08:00 Pulse Ox 95 08/06/18 08:00 Physical Exam: Awake, alert oriented. Able to provide a hx though responses are vague Constitutional: WD/WN, vitals as above + thin Eyes: PERRL, conjunctivae normal, anicteric sclerae Neck: trachea midline, no thyromegaly Respiratory: normal respiratory effort, lungs clear to auscultation Cardiovascular: Vessels: no JVD Extremities: no edema Irregular rhythm. Monitor with A-fib, Rate normal in the 80's, no murmur. Gastrointestinal (Abdomen): Inspection/Auscultation: + hypoactive bowel sounds Percussion/Palpation: + abdomen tender (minimal periumbilical tenderness; tender in the epigastric area but has a bruise there) and abdomen soft Skin: no jaundice Trauma: + contusion (epigastric/xiphoid process area) Neurologic: PERRL, EOMI, accommodation nl, no face palsy, no dysarthria awake; not confused Motor/Sensory: no tremor Results & Data Laboratory Results WBC 10, Hb 12, Hct 28, BUN 24, Cr 1.52. Diagnostic Findings ERCP 08/05: 1. 5 mm distal common bile duct calculus with at least one additional smaller distal CBD stone. 2. Cholelithiasis with mild gallbladder wall thickening suggestive of acute cholecystitis. 3. No biliary or pancreatic ductal dilatation. 4. 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 US 08/05 Liver: Unremarkable. Gallbladder: The gallbladder is mildly distended. The wall is thickened up to 5 mm. Multiple small stones and sludge are identified. CBD: 7 mm in diameter. This is considered within the range of normal limits given the patient's age. The distal common bile duct was not well visualized. CT 08/05: 1. Acute cholecystitis. There are few small gallstones identified within the gallbladder. In addition, there is suggestion of a 5 mm stone at the distal common bile duct. Surgical consultation recommended. 2. No bowel wall thickening or obstruction. 3. Additional findings as described above Medications Administered Zosyn, Cefoxitin Most recent Eliquis on Thu (about 48 hrs ago) _ (1) Rhabdomyolysis Encounter type: Rhabdomyolysis type: non-traumatic Qualified Code(s): M62.82 - Rhabdomyolysis (2) Abdominal pain Abdominal location: right upper quadrant Qualified Code(s): R10.11 - Right upper quadrant pain
[2018-08-06 11:01] LABS: Albumin Level 2.5 gm/dl (3.4-5.0); Bilirubin Direct 0.2 mg/dl (0-0.2); Bilirubin,Total 0.8 mg/dl (0.2-1); Total Protein 6.3 gm/dl (6.4-8.2)
--- NOTE | 2018-08-06 12:03 | Surgery Progress Note ---
Date of Service August 06, 2018 Assessment & Plan (1) Acute cholecystitis: 87 year old male who presented to [facility] with 2 days history abdominal pain and s/p fall. He had CT scan of abdomen and pelvis and RUQ ultrasound showing gallbladder wall thickening, pericholecystic fluid, gallstones, and common bile duct stones consistent with acute calculous cholecystitis and Choledocholithiasis. MRCP showing Choledocholithiasis, going for ERCP today Troponin, CKMB also elevated. Preoperative cardiovascular examination cardiology: Patient likely sustained an NSTEMI recently although he has not had any angina pectoris recently or during his current illness. LV systolic function and wall motion are normal -- patient will be at an intermediate risk for cardiac complications with his upcoming procedures. We recommend that the patient take his usual doses of Toprol XL and Aspirin the morning of procedure with sips of water. Improvement of Leukocytosis today to 10.8K. T. bili 0.8. LFTS improved but still elevated. Plan: Will await results of ERCP today. Would recommend IV antibiotics to allow the gallbladder to cool off and possibly plan for cholecystectomy early next week. Continue IV fluids, IV pain management, IV Zofran as needed Continue current medical management Dr. Chavez covering this weekend Dr. Louie has seen and examined patient agrees with above. Subjective not having any abdominal pain no nausea or vomiting no chest pain or shortness of breath Physical Exam 2 Vital Signs (Past 24 Hours): Last Vital Signs Temp 37.0 C 08/06/18 11:49 Pulse 73 08/06/18 11:49 Resp 19 08/06/18 11:49 BP 101/59 L 08/06/18 11:49 Pulse Ox 95 08/06/18 11:49 Constitutional: WD/WN, vitals as above no acute distress and not ill appearing Neck: trachea midline Respiratory: normal respiratory effort, lungs clear to auscultation no respiratory distress, no labored breathing, no retractions and does not use accessory muscles Cardiovascular: Rate/Rhythm: regular rate Heart Sounds: normal S1, normal S2 and + murmur Gastrointestinal (Abdomen): Inspection/Auscultation: abdomen normal to inspection; abdomen not distended Percussion/Palpation: + abdomen tender ( mild tenderness in RUQ, negative crane's) and abdomen soft; no guarding and abdomen not rigid there is midline sternotomy scar present with three small epigastric scars present Skin: no rashes, warm and dry Psychiatric: A+Ox3, euthymic affect Results & Data Laboratory Results 08/06/18 08/06/18 08/06/18 Range/Units 11:22 10:15 10:15 WBC (4.8-10.8) K/uL RBC (4.7-6.1) M/uL Hgb (14.0-18.0) g/dL Hct (42-52) % MCV (80-100) fL MCH (25-34) pg MCHC (32-36) g/dL RDW Std Deviation (36.4-46.3) fL RDW Coeff of Lin (11.5-14.5) % Plt Count (130-400) K/uL MPV (7.4-10.4) fL Immature Gran % (Auto) % Neut % (Auto) % Lymph % (Auto) % Harrison % (Auto) % Eos % (Auto) % Baso % (Auto) % Immature Gran # (Auto) (0.00-0.02) K/uL Neut # (Auto) (1.4-6.5) K/uL Lymph # (Auto) (1.2-3.4) K/uL Harrison # (Auto) (0.11-0.59) K/uL Eos # (Auto) (0-0.5) K/uL Baso # (Auto) (0-0.2) K/uL Sodium (136-145) mmol/L Potassium (3.5-5.1) mmol/L Chloride (98-107) mmol/L Carbon Dioxide (21-32) mmol/L Anion Gap (3-11) BUN (7-18) mg/dl Creatinine (0.6-1.4) mg/dl Est Cr Clr Drug Dosing ml/min Est GFR ( Amer) Est GFR (Non-Af Amer) BUN/Creatinine Ratio (10-20) Glucose (70-99) mg/dl POC Glucose 114 H (70-99) Calcium (8.5-10.1) mg/dl Magnesium (1.8-2.4) mg/dl Total Bilirubin 0.8 (0.2-1) mg/dl Direct Bilirubin 0.2 (0-0.2) mg/dl AST 221 H (15-37) U/L ALT 89 H (12-78) U/L Alkaline Phosphatase 62 (45-117) U/L Total Creatine Kinase 5528 H (39-308) U/L Troponin I (0-0.045) ng/ml Total Protein 6.3 L D (6.4-8.2) gm/dl Albumin 2.5 L (3.4-5.0) gm/dl 08/06/18 08/06/18 08/06/18 Range/Units 07:28 06:18 06:18 WBC (4.8-10.8) K/uL RBC (4.7-6.1) M/uL Hgb (14.0-18.0) g/dL Hct (42-52) % MCV (80-100) fL MCH (25-34) pg MCHC (32-36) g/dL RDW Std Deviation (36.4-46.3) fL RDW Coeff of Lin (11.5-14.5) % Plt Count (130-400) K/uL MPV (7.4-10.4) fL Immature Gran % (Auto) % Neut % (Auto) % Lymph % (Auto) % Harrison % (Auto) % Eos % (Auto) % Baso % (Auto) % Immature Gran # (Auto) (0.00-0.02) K/uL Neut # (Auto) (1.4-6.5) K/uL Lymph # (Auto) (1.2-3.4) K/uL Harrison # (Auto) (0.11-0.59) K/uL Eos # (Auto) (0-0.5) K/uL Baso # (Auto) (0-0.2) K/uL Sodium 136 (136-145) mmol/L Potassium 3.7 (3.5-5.1) mmol/L Chloride 105 (98-107) mmol/L Carbon Dioxide 26 (21-32) mmol/L Anion Gap 5.0 (3-11) BUN 24 H (7-18) mg/dl Creatinine 1.52 H (0.6-1.4) mg/dl Est Cr Clr Drug Dosing 35.4 ml/min Est GFR ( Amer) 47.1 Est GFR (Non-Af Amer) 40.6 BUN/Creatinine Ratio 15.8 (10-20) Glucose 125 H (70-99) mg/dl POC Glucose 124 H 127 H (70-99) Calcium 8.4 L (8.5-10.1) mg/dl Magnesium 2.1 (1.8-2.4) mg/dl Total Bilirubin (0.2-1) mg/dl Direct Bilirubin (0-0.2) mg/dl AST (15-37) U/L ALT (12-78) U/L Alkaline Phosphatase (45-117) U/L Total Creatine Kinase (39-308) U/L Troponin I (0-0.045) ng/ml Total Protein (6.4-8.2) gm/dl Albumin (3.4-5.0) gm/dl 08/06/18 08/06/18 08/05/18 Range/Units 06:18 00:06 23:27 WBC 10.81 H (4.8-10.8) K/uL RBC 4.42 L (4.7-6.1) M/uL Hgb 12.9 L (14.0-18.0) g/dL Hct 38.3 L (42-52) % MCV 86.7 (80-100) fL MCH 29.2 (25-34) pg MCHC 33.7 (32-36) g/dL RDW Std Deviation 42.5 (36.4-46.3) fL RDW Coeff of Lin 13.3 (11.5-14.5) % Plt Count 174 (130-400) K/uL MPV 10.7 H (7.4-10.4) fL Immature Gran % (Auto) 0.3 % Neut % (Auto) 75.4 % Lymph % (Auto) 13.4 % Harrison % (Auto) 10.2 % Eos % (Auto) 0.4 % Baso % (Auto) 0.3 % Immature Gran # (Auto) 0.03 H (0.00-0.02) K/uL Neut # (Auto) 8.16 H (1.4-6.5) K/uL Lymph # (Auto) 1.45 (1.2-3.4) K/uL Harrison # (Auto) 1.10 H (0.11-0.59) K/uL Eos # (Auto) 0.04 (0-0.5) K/uL Baso # (Auto) 0.03 (0-0.2) K/uL Sodium (136-145) mmol/L Potassium (3.5-5.1) mmol/L Chloride (98-107) mmol/L Carbon Dioxide (21-32) mmol/L Anion Gap (3-11) BUN (7-18) mg/dl Creatinine (0.6-1.4) mg/dl Est Cr Clr Drug Dosing ml/min Est GFR ( Amer) Est GFR (Non-Af Amer) BUN/Creatinine Ratio (10-20) Glucose (70-99) mg/dl POC Glucose 132 H (70-99) Calcium (8.5-10.1) mg/dl Magnesium (1.8-2.4) mg/dl Total Bilirubin (0.2-1) mg/dl Direct Bilirubin (0-0.2) mg/dl AST (15-37) U/L ALT (12-78) U/L Alkaline Phosphatase (45-117) U/L Total Creatine Kinase (39-308) U/L Troponin I 0.504 H* (0-0.045) ng/ml Total Protein (6.4-8.2) gm/dl Albumin (3.4-5.0) gm/dl 08/05/18 08/05/18 08/05/18 Range/Units 18:13 18:13 11:50 WBC (4.8-10.8) K/uL RBC (4.7-6.1) M/uL Hgb (14.0-18.0) g/dL Hct (42-52) % MCV (80-100) fL MCH (25-34) pg MCHC (32-36) g/dL RDW Std Deviation (36.4-46.3) fL RDW Coeff of Lin (11.5-14.5) % Plt Count (130-400) K/uL MPV (7.4-10.4) fL Immature Gran % (Auto) % Neut % (Auto) % Lymph % (Auto) % Harrison % (Auto) % Eos % (Auto) % Baso % (Auto) % Immature Gran # (Auto) (0.00-0.02) K/uL Neut # (Auto) (1.4-6.5) K/uL Lymph # (Auto) (1.2-3.4) K/uL Harrison # (Auto) (0.11-0.59) K/uL Eos # (Auto) (0-0.5) K/uL Baso # (Auto) (0-0.2) K/uL Sodium (136-145) mmol/L Potassium (3.5-5.1) mmol/L Chloride (98-107) mmol/L Carbon Dioxide (21-32) mmol/L Anion Gap (3-11) BUN (7-18) mg/dl Creatinine (0.6-1.4) mg/dl Est Cr Clr Drug Dosing ml/min Est GFR ( Amer) Est GFR (Non-Af Amer) BUN/Creatinine Ratio (10-20) Glucose (70-99) mg/dl POC Glucose 113 H (70-99) Calcium (8.5-10.1) mg/dl Magnesium (1.8-2.4) mg/dl Total Bilirubin (0.2-1) mg/dl Direct Bilirubin (0-0.2) mg/dl AST (15-37) U/L ALT (12-78) U/L Alkaline Phosphatase (45-117) U/L Total Creatine Kinase (39-308) U/L Troponin I 0.471 H* 0.467 H* (0-0.045) ng/ml Total Protein (6.4-8.2) gm/dl Albumin (3.4-5.0) gm/dl Diagnostic Findings MRCP CLINICAL HISTORY: Acute cholecystitis. CBD stone. COMPARISON STUDY: CT of the abdomen and pelvis and right upper quadrant ultrasound performed earlier today. TECHNIQUE: Utilizing a 1.5 Laura magnet and dedicated coil, multiplanar, multi echo imaging of the abdomen was performed utilizing heavily weighted pulsing sequences. No intravenous contrast was injected. FINDINGS: Multiple gallstones within the gallbladder measuring up to 1.4 cm. Exam is mildly compromised by motion artifact. However, there is suggestion of mild gallbladder wall thickening with trace pericholecystic fluid. The gallbladder is mildly distended. There is no biliary ductal dilatation. A 5 mm calculus within the distal common bile duct is noted. At least one additional distal common bile duct calculus measures 4 mm. Course and caliber of the main pancreatic duct are normal. There is no peripancreatic infiltration. No pancreatic mass is identified although sensitivity is diminished on this unenhanced exam. There is a diverticulum of the second portion of the duodenum. There is no hydronephrosis. Unenhanced images of the spleen and liver are unremarkable. There is no abdominal adenopathy. IMPRESSION: 1. 5 mm distal common bile duct calculus with at least one additional smaller distal CBD stone. 2. Cholelithiasis with mild gallbladder wall thickening suggestive of acute cholecystitis. 3. No biliary or pancreatic ductal dilatation. 4. 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
--- NOTE | 2018-08-06 13:10 | History & Physical Bridge Note ---
Date of Service August 06, 2018 History & Physical Bridge Note I have examined the patient, reviewed the History & Physical and in the interval since the performance of the History & Physical I have noted the following changes of clinical significance: no changes noted ERCP today
[2018-08-06] MEDS ORDERED: MIDAZOLAM HCL 1 MG/ML 2ML VIAL ONE (14:13)
[2018-08-06] MEDS ORDERED: fentaNYL citrate 100 MCG/2 ML VIAL ONE (14:13)
[2018-08-06] MEDS ORDERED: INDOMETHACIN 50 MG SUPP PR ONE (14:47)
[2018-08-06] MEDS ORDERED: INDOMETHACIN 50 MG SUPP PR STA (14:54)
[2018-08-06] MEDS ORDERED: ONDANSETRON INJ 2 MG/ML 2 ML VIAL ONE (15:18)
[2018-08-06] MEDS ORDERED: PROPOFOL IV EMULSION 10 MG/ML 20 ML VIAL IV ONE (15:18)
[2018-08-06] MEDS ORDERED: ePHEDrine sulfate 50 MG/ML SYR ONE (15:18)
[2018-08-06] MEDS ORDERED: PHENYLEPHRINE 100MCG/ML 5ML SYR ONE (15:18)
[2018-08-06] MEDS ORDERED: LIDOCAINE HCL 2% 2 ML VIAL/AMP(20MG/ML) INFIL ONE (15:18)
[2018-08-06] MEDS ORDERED: LARYING-O-JET KIT (LTA) ONE (15:21)
[2018-08-06] MEDS ORDERED: PHENYLEPHRINE HCL 10 MG/ML VIAL ONE (15:25)
--- NOTE | 2018-08-06 15:37 | Family Medicine Progress Note ---
Date of Service August 06, 2018 Assessment & Plan (1) Acute cholecystitis: Mr. Hayes is an 87yo M with a PMHx of CAD s/p CABGx1, pAfib, HTN, HLD , CKD3, and T2DM who presented with nausea, upper abdominal pain, and fever. The night prior to admit he slipped from his chair and was lying on the ground for an extended period of time. He did not sustain any head injury or loss of consciousness. Initial workup in the ED showed elevated transaminases without increased alkphos, increased troponins, and CT-A showed a common bile duct stone. Acute Cholecystitis - Surgery and GI consulted - Pain control as below - Abx: Pip-tazo 3.375 Q8H - s/p ERCP with complete removal of stones, sphincteromy, and no placement of stents - Diet advanced to clears, do not advance further until evaluation by surgery tomorrow - Zofran for nausea Rhabdomyolysis secondary to mechanical fall from slipping - CK elevated to 8706 on admit, down trending to 5528 - IVFM NSS 75cc/hr for 1L - Recheck if CK then d/c IVF if CK <5000 Elevated Troponin - Cardiology Consulted - Echo: mod concentric LVH, LVEF>70%, normal RV, Mod-sev , grade I diastolyic dysfunction - Continue metoprolol succinate 150 mg daily. - Continue ASA 81 mg daily, Atorvastatin 80 mg daily. - Continue Ramipril 5 mg daily. - In context of his increase CK and history concerning for rhabdo his elevated troponins may be elevated both in the setting of infection from pancreatitis and also from decreased filtration. pAfib - Sinus on admit - Continue metoprolol as above - Apixaban held in anticipation of possible surgery T2DM - SSI - BMP daily - Glucose checks AC/HS HTN - Metoprolol, Ramipril as above HLD - Continue Atorvastatin as above DVT Prophylaxsis: Apixaban, currently held in anticipation of surgery eval. Code: Full (2) Rhabdomyolysis: (3) CKD (chronic kidney disease): (4) CAD (coronary artery disease): (5) Choledocholithiasis: (6) Abdominal pain: (7) Elevated troponin I level: (8) DVT prophylaxis: Supervising Physician Co-Signing Physician Notes Resident Physician Supervision Note: I independently interviewed and examined the patient and verified the duron history and physical, reviewed labs and image studies, discussed the case with the resident Dr. Dunne and agree with the findings and care plan. Subjective Mr. Hayes feels OK today. He endorses some pain in his belly button and right lower abdominal area. No nausea, vomiting. Denies diarrhea, constipation, fever, chills, sweats, headache. He reports that he fell to the ground from a chair the Thursday night prior to admission and was found by his the next morning.Denies any syncope, chest pain, lightheadedness, dizziness that led to this fall. Endorses that he felt overall weak, and could not stand up. Reports that for at least 2 weeks he has felt much more lethargic and not himself. Notes that he does have abdominal pain, but that it is not affected by meals. Physical Exam 2 Vital Signs (Past 24 Hours): Last Vital Signs Temp 37.4 C 08/06/18 14:34 Pulse 66 08/06/18 14:34 Resp 18 08/06/18 14:34 BP 120/53 L 08/06/18 14:34 Pulse Ox 94 08/06/18 14:34 Physical Exam: General: A&Ox3. NAD. Cooperative. HEENT: Atraumatic, normocephalic. Pulm: CTAB A&P. -wheezes, -rales, -rhonchi. Symmetrical chest rise. No increased work of breathing. No respiratory distress. Cardiac: Irregular rhythm, -mrg. Radial pulses intact and symmetrical. No JVD. Abdominal: Mild tenderness in the supraumbilical and epigastric area. Bruise present at epigastric area. Abdomen otherwise soft, nondistended. Bowel sounds present. Results & Data Laboratory Results Abnormal lab results 08/05/18 08/06/18 08/06/18 Range/Units 23:27 00:06 06:18 WBC 10.81 H (4.8-10.8) K/uL RBC 4.42 L (4.7-6.1) M/uL Hgb 12.9 L (14.0-18.0) g/dL Hct 38.3 L (42-52) % MPV 10.7 H (7.4-10.4) fL Immature Gran # (Auto) 0.03 H (0.00-0.02) K/uL Neut # (Auto) 8.16 H (1.4-6.5) K/uL [place] # (Auto) 1.10 H (0.11-0.59) K/uL BUN (7-18) mg/dl Creatinine (0.6-1.4) mg/dl Glucose (70-99) mg/dl POC Glucose 132 H (70-99) Calcium (8.5-10.1) mg/dl AST (15-37) U/L ALT (12-78) U/L Total Creatine Kinase (39-308) U/L Troponin I 0.504 H* (0-0.045) ng/ml Total Protein (6.4-8.2) gm/dl Albumin (3.4-5.0) gm/dl 08/06/18 08/06/18 08/06/18 Range/Units 06:18 06:18 07:28 WBC (4.8-10.8) K/uL RBC (4.7-6.1) M/uL Hgb (14.0-18.0) g/dL Hct (42-52) % MPV (7.4-10.4) fL Immature Gran # (Auto) (0.00-0.02) K/uL Neut # (Auto) (1.4-6.5) K/uL [place] # (Auto) (0.11-0.59) K/uL BUN 24 H (7-18) mg/dl Creatinine 1.52 H (0.6-1.4) mg/dl Glucose 125 H (70-99) mg/dl POC Glucose 127 H 124 H (70-99) Calcium 8.4 L (8.5-10.1) mg/dl AST (15-37) U/L ALT (12-78) U/L Total Creatine Kinase (39-308) U/L Troponin I (0-0.045) ng/ml Total Protein (6.4-8.2) gm/dl Albumin (3.4-5.0) gm/dl 08/06/18 08/06/18 08/06/18 Range/Units 10:15 10:15 11:22 WBC (4.8-10.8) K/uL RBC (4.7-6.1) M/uL Hgb (14.0-18.0) g/dL Hct (42-52) % MPV (7.4-10.4) fL Immature Gran # (Auto) (0.00-0.02) K/uL Neut # (Auto) (1.4-6.5) K/uL [place] # (Auto) (0.11-0.59) K/uL BUN (7-18) mg/dl Creatinine (0.6-1.4) mg/dl Glucose (70-99) mg/dl POC Glucose 114 H (70-99) Calcium (8.5-10.1) mg/dl AST 221 H (15-37) U/L ALT 89 H (12-78) U/L Total Creatine Kinase 5528 H (39-308) U/L Troponin I (0-0.045) ng/ml Total Protein 6.3 L D (6.4-8.2) gm/dl Albumin 2.5 L (3.4-5.0) gm/dl 08/06/18 Range/Units 17:32 WBC (4.8-10.8) K/uL RBC (4.7-6.1) M/uL Hgb (14.0-18.0) g/dL Hct (42-52) % MPV (7.4-10.4) fL Immature Gran # (Auto) (0.00-0.02) K/uL Neut # (Auto) (1.4-6.5) K/uL [place] # (Auto) (0.11-0.59) K/uL BUN (7-18) mg/dl Creatinine (0.6-1.4) mg/dl Glucose (70-99) mg/dl POC Glucose 126 H (70-99) Calcium (8.5-10.1) mg/dl AST (15-37) U/L ALT (12-78) U/L Total Creatine Kinase (39-308) U/L Troponin I (0-0.045) ng/ml Total Protein (6.4-8.2) gm/dl Albumin (3.4-5.0) gm/dl Medications Administered Current Inpatient Medications [facility]atin Cal[facility]) [facility] [place]: 09/05/18 08:59 Last Admin: 08/06/18 08:26 Dose: 80 mg Finasteride (Proscar) [facility] [place] Stop: 09/05/18 08:59 Last Admin: 08/06/18 08:26 Dose: 5 mg Hydromorphone HCl (Dilaudid) 0.5 mg IV Q4H PRN PRN Reason: Pain Stop: 08/19/18 17:47 Piperacillin Sod/Tazobactam Sod (Zosyn) 3.375 gm in 115 mls @ 28.75 mls/hr IV Q8H [facility]; Protocol Stop: 08/16/18 00:00 Last Admin: 08/06/18 18:05 Dose: 28.8 mls/hr Insulin Aspart (Novolog Flexpen) 0 units SC [facility] Stop: 09/05/18 20:59 Ioversol (Optiray 320 100ml) 94 ml IV ONCE PRN PRN Reason: Interaction Checking Stop: 08/09/18 13:05 Last Admin: 08/05/18 13:06 Dose: 94 ml Metoprolol Succinate (Toprol Xl) 150 mg PO [facility] Stop: 09/05/18 08:59 Last Admin: 08/06/18 08:26 Dose: 150 mg Miscellaneous Information (Consult) 1 ea N/A UD PRN PRN Reason: Consult Stop: 09/04/18 17:47 Ondansetron HCl (Zofran) 4 mg IV Q8H PRN PRN Reason: nausea/vomiting Stop: 09/04/18 17:47 Pantoprazole Sodium (Protonix) 40 mg PO [facility] Stop: 09/05/18 08:59 Last Admin: 08/06/18 08:26 Dose: 40 mg Terazosin HCl (Hytrin) 5 mg PO [facility] Stop: 09/04/18 20:59 Last Admin: 08/05/18 20:39 Dose: 5 mg Resident Activity Tracking Resident Involvement: Resident Care Provided Care Provided: Adult [facility] Medicine _ (1) Rhabdomyolysis Encounter type: Rhabdomyolysis type: non-traumatic Qualified Code(s): M62.82 - Rhabdomyolysis (2) Abdominal pain Abdominal location: right upper quadrant Qualified Code(s): R10.11 - Right upper quadrant pain
--- NOTE | 2018-08-06 15:48 | Operative Report ---
Post Operative Report Pre & Post Diagnosis Operation Date: 08/06/18 07:15 Pre-Op Diagnosis: common bile duct stone, cholangitis Post-Op Diagnosis: common bile duct stone, cholangitis Procedure Operation Date: 08/06/18 07:15 Actual Procedures p Endoscopic Retrograde Cholangiopancreatogram, with sphincterotomy and balloon sweep(Not Applicable) - Vera Manrique MD Surgeon Vera Manrique MD Haul Driver none Estimated Blood Loss 0 Findings See Below (Sphincterotomy, balloon sweep and CBD stone removal.) Specimens None Description of Procedure ERCP I attest to the content of the Intraoperative Record and any orders documented therein. Any exceptions are noted below.
[2018-08-06] MEDS ORDERED: ONDANSETRON INJ 2 MG/ML 2 ML VIAL IV PRN (15:56)
[2018-08-06] MEDS ORDERED: HYDROmorphone INJ 1 MG/ML SYRINGE IV PRN (15:56)
[2018-08-06] MEDS ORDERED: PHENYLEPHRINE 100MCG/ML 5ML SYR IV PRN (15:56)
[2018-08-06] MEDS ORDERED: fentaNYL citrate 100 MCG/2 ML VIAL IV PRN (15:56)
[2018-08-06] MEDS ORDERED: ePHEDrine sulfate 50 MG/ML AMP IV PRN (15:56)
[2018-08-06] MEDS ORDERED: ATROPINE SULFATE 0.1 MG/ML 10ML SYR IV PRN (15:56)
--- NOTE | 2018-08-06 16:13 | Fluoroscopy Report ---
INTRAOPERATIVE RADIOGRAPHS CLINICAL HISTORY: ERCP. Duct exploration. COMPARISON STUDY: MRCP dated 08/05/2018. Fluoroscopy time: 90 seconds. FINDINGS: 5 spot fluoroscopic views of the right upper quadrant from a duct exploration are presented . The initial image shows the endoscope projecting over the stomach with cannulation of the common bi le duct. The common bile duct appears mildly dilated. Filling defects suggest choledocholithiasis. A balloon sweep is performed. IMPRESSION: Intraoperative images from ERCP and duct exploration. See operative report for detailed f indings. Electronically signed by: Agapito Narayan M.D. 08/06/2018 4:12 PM
--- NOTE | 2018-08-06 16:27 | Anesthesiology Progress Note ---
Date of Service August 06, 2018 Anesthesia Post Procedure Vital Signs Vital Signs: Temp Pulse Pulse Pulse Resp BP BP 08/06/18 16:20 68 18 134/49 L 08/06/18 16:10 77 18 151/54 H 08/06/18 16:01 37.1 C 73 18 113/54 L 08/06/18 14:34 37.4 C 66 18 120/53 L 08/06/18 12:00 37.0 C 70 20 113/62 08/06/18 11:49 37.0 C 73 19 101/59 L 08/06/18 08:00 37.2 C 88 88 20 117/74 08/06/18 02:25 36.5 C 95 H 16 114/63 08/05/18 23:00 107 H 08/05/18 22:38 37.1 C 113 H 19 135/77 08/05/18 19:25 37.0 C 95 H 23 147/70 H 08/05/18 17:49 38.4 C H 105 H 22 152/78 H 08/05/18 17:48 104 H Pulse Ox 08/06/18 16:20 96 08/06/18 16:10 98 08/06/18 16:01 98 08/06/18 14:34 94 08/06/18 12:00 94 08/06/18 11:49 95 08/06/18 08:00 95 08/06/18 02:25 91 08/05/18 23:00 08/05/18 22:38 94 08/05/18 19:25 94 08/05/18 17:49 92 08/05/18 17:48 Pain Intensity Back: Pain Intensity: 2 Notes Mental Status: alert / awake / arousable Patient Amnestic to Procedure: Yes Nausea / Vomiting: adequately controlled Pain: adequately controlled Airway Patency, RR, SpO2: stable & adequate BP & HR: stable & adequate Hydration State: stable & adequate Anesthetic Complications: no major complications apparent
--- NOTE | 2018-08-06 16:45 | GI REPORT ---
Patient Name: Jim Hayes Procedure Date: 08/06/2018 2:41 PM Date of : 1930 Admit Type: Inpatient Age: 87 Gender: Male Attending MD: Vera Manrique MD Procedure: ERCP Providers: Vera Manrique MD Referring MD: Jenny Fry Indications: Abdominal pain of suspected biliary origin, Abnormal MRCP, For therapy of bile duct stone(s) Medicines: General Anesthesia Complications: No immediate complications. Estimated Blood Loss: Estimated blood loss: none. Procedure: Pre-Anesthesia Assessment: - Prior to the procedure, a History and Physical was performed, and patient medications and allergies were reviewed. The patient is competent. The risks and benefits of the procedure and the sedation options and risks were discussed with the patient. All questions were answered and informed consent was obtained. Patient identification and proposed procedure were verified by the physician and the nurse in the procedure room. Mental Status Examination: alert and oriented. Airway Examination: normal oropharyngeal airway and neck mobility. Respiratory Examination: clear to auscultation. CV Examination: normal. ASA Grade Assessment: III - A patient with severe systemic disease. After reviewing the risks and benefits, the patient was deemed in satisfactory condition to undergo the procedure. The anesthesia plan was to use general anesthesia. Immediately prior to administration of medications, the patient was re-assessed for adequacy to receive sedatives. The heart rate, respiratory rate, oxygen saturations, blood pressure, adequacy of pulmonary ventilation, and response to care were monitored throughout the procedure. The physical status of the patient was re-assessed after the procedure. After obtaining informed consent, the scope was passed under direct vision. Throughout the procedure, the patient's blood pressure, pulse, and oxygen saturations were monitored continuously. The scope was introduced through the mouth, and advanced to the duodenum and used to inject contrast into the bile duct. The ERCP was accomplished without difficulty. The patient tolerated the procedure well. Findings: The substation operator transforming film was normal. The esophagus was successfully intubated under direct vision. The scope was advanced to a normal major papilla in the descending duodenum without detailed examination of the pharynx, larynx and associated structures, and upper GI tract. The upper GI tract was grossly normal. The major papilla was on the rim of a diverticulum. An 0.018 inch straight standard wire was passed into the biliary tree from the first attempt. The 3-4-5 taper-tip cannula was passed over the guidewire and the bile duct was then deeply cannulated. A wire exchange performed and a 0.035 inch straight standard wire was passed into the biliary tree. The taper tip catheter was removed and the Fusion OMNI sphincterotome was passed over the guidewire and the bile duct was then deeply cannulated. Contrast was injected. I personally interpreted the bile duct images. Ductal flow of contrast was adequate. Image quality was adequate. Contrast extended to the main bile duct. The main bile duct was moderately dilated. The largest diameter was 9 mm. The lower third of the main bile duct contained multiple stones. Contrast was injected. In view of current use of Apixaban (Eliquis), a short 4 mm biliary sphincterotomy was made with a monofilament Fusion OMNI sphincterotome using ERBE electrocautery followed by dilation of the common bile duct with a 6 mm balloon dilator was successful (Minimal Endoscopic Biliary Sphincerotomy With Endoscopic Papillary Balloon Dilation (mEBS+EPBD)). There was no post-sphincterotomy bleeding. The biliary tree was swept with a 13.5 mm balloon starting at the bifurcation. Many stones were removed. No stones remained. Occlusion cholangiogram showed no filling defects. Indomethacin 100 mg was given via suppository to decrease the risk of post-ERCP pancreatitis (PEP). The total fluoroscopy exposure time was 1 minute and 30 seconds. PD was not cannulated nor injected with contrast. No stents placed. Impression: - The major papilla was on the rim of a diverticulum. - The entire main bile duct was moderately dilated. - Choledocholithiasis was found. Complete removal was accomplished by biliary sphincterotomy and balloon extraction. - A biliary sphincterotomy was performed followed by Common bile duct was dilation. (Minimal Endoscopic Biliary Sphincerotomy With Endoscopic Papillary Balloon Dilation (mEBS+EPBD)) Recommendation: - [facility] patient [facility] for [facility] care. - Refer to surgery for Cholecystectomy. - Can resume Apixaban (Eliquis) after 48 hrs. - Recall GI if needed. Vera Manrique MD 08/06/2018 4:45:27 PM This report has been signed electronically. Note Initiated On: 08/06/2018 2:41 PM Number of Addenda: 0 I attest to the content of the Intraoperative Record and orders documented therein, exceptions below {[id number]}
[2018-08-06] MEDS ORDERED: Nursing to Pharmacy Communication ONE (18:56)
[2018-08-06] MEDS ORDERED: SODIUM CHLORIDE 0.9% 1000ML 1,000 ML IV SCH (20:15)
[2018-08-06] MEDS: TERAZOSIN HCL 5 MG CAP PO SCH (21:20)
--- NOTE | 2018-08-07 05:39 | Progress Note ---
Date of Service August 07, 2018 Assessment & Plan (1) Acute cholecystitis: feels much better- adv diet per GI/med team possible cholecystectomy this week- per Dr Louie/GI/ med team depending on progress Subjective pt alert, says first morning with no pain Physical Exam 2 Vital Signs (Past 24 Hours): Last Vital Signs Temp 36.6 C 08/07/18 03:57 Pulse 59 L 08/07/18 03:57 Resp 16 08/07/18 03:57 BP 110/64 08/07/18 03:57 Pulse Ox 97 08/07/18 03:57 abd- soft
[2018-08-07 07:35] LABS: Basophils # (auto) 0.01 K/uL (0-0.2); Basophils % (auto) 0.1 %; Eosinophils # (auto) 0.36 K/uL (0-0.5); Hematocrit (blood only) 38.3 % (42-52); Hemoglobin 12.6 g/dL (14.0-18.0); Immature Granulocytes # (auto) 0.05 K/uL (0.00-0.02); Immature Granulocytes % (auto) 0.4 %; Lymphocytes # (auto) 1.02 K/uL (1.2-3.4); Lymphocytes % (auto) 8.4 %; Mean Corpuscular Hgb Conc 32.9 g/dL (32-36); Mean Corpuscular Volume 86.7 fL (80-100); Mean Platelet Volume 10.9 fL (7.4-10.4); Monocytes % (auto) 8.2 %; Neutrophils # (auto) 9.73 K/uL (1.4-6.5); Neutrophils % (auto) 79.9 %; Platelet Count 168 K/uL (130-400); RDW Coefficient of Variation 13.4 % (11.5-14.5); RDW Standard Deviation 42.8 fL (36.4-46.3); Red Blood Count 4.42 M/uL (4.7-6.1); White Blood Count 12.17 K/uL (4.8-10.8)
[2018-08-07] MEDS: INSULIN ASPART 100 UNITS/ML 3 ML PEN SC SCH ×4 (07:46→21:27)
[2018-08-07] MEDS: ATORVASTATIN 40 MG TAB PO SCH (07:54)
[2018-08-07] MEDS: PANTOprazole 40 MG TAB PO SCH (07:54)
[2018-08-07] MEDS: PIPERACILLIN/TAZOBACTAM 3.375 GM/115 ML BAG IV SCH ×2 (07:54→16:47)
[2018-08-07] MEDS: FINASTERIDE 5 MG TAB PO SCH (07:54)
[2018-08-07] MEDS: METOPROLOL SUCC 50MG EXT REL TAB PO SCH (07:54)
[2018-08-07 08:05] LABS: Albumin Globulin Ratio 0.6 (0.9-2); Albumin Level 2.3 gm/dl (3.4-5.0); BUN Creatinine Ratio 19.8 (10-20); Calcium 8.2 mg/dl (8.5-10.1); Creatinine Clr Calc Pharmacy 31.6 ml/min; Est GFR (African American) 41.1; Est GFR (Non-African American) 35.5; Globulin 3.8 gm/dl (2.5-4.0); Potassium 4.2 mmol/L (3.5-5.1); Total Protein 6.1 gm/dl (6.4-8.2)
[2018-08-07 08:17] LABS: Bilirubin,Total 0.9 mg/dl (0.2-1)
--- NOTE | 2018-08-07 21:14 | Family Medicine Progress Note ---
Date of Service August 07, 2018 Assessment & Plan (1) Acute cholecystitis: Mr. Hayes is an 87yo M with a PMHx of CAD s/p CABGx1, pAfib, HTN, HLD , CKD3, and T2DM who is s/p ERCP for choledocholithiasis. Possible cholecystectomy while hospitalized. Acute Cholecystitis - Surgery and GI consulted - Abx: Pip-tazo 3.375 Q8H -Started on low fat diet, will monitor response. If pain/not tolerated will likely require cholecystectomy before discharge. - Zofran for nausea Rhabdomyolysis-RESOLVED -fluids stopped as levels <5000. Elevated Troponin - Cardiology Consulted - Echo: mod concentric LVH, LVEF>70%, normal RV, Mod-sev , grade I diastolyic dysfunction - Continue metoprolol succinate 150 mg daily. - Continue ASA 81 mg daily, Atorvastatin 80 mg daily. - Continue Ramipril 5 mg daily. - In context of his increase CK and history concerning for rhabdo his elevated troponins may be elevated both in the setting of infection from pancreatitis and also from decreased filtration. pAfib - Sinus on admit - Continue metoprolol as above - Apixaban held in anticipation of possible surgery T2DM - SSI - BMP daily - Glucose checks AC/HS HTN - Metoprolol, Ramipril as above HLD - Continue Atorvastatin as above DVT Prophylaxsis: Apixaban, currently held in anticipation of surgery eval. Code: Full (2) Rhabdomyolysis: (3) CKD (chronic kidney disease): (4) CAD (coronary artery disease): (5) Choledocholithiasis: (6) Abdominal pain: (7) Elevated troponin I level: (8) DVT prophylaxis: Supervising Physician Co-Signing Physician Notes I personally examined the patient and verified all duron points of history and exam, discussed case, and agree with decision making with Dr Green. Feeling okay, wants to advance his diet. No abdominal pain. Discussed cholecystectomy now versus delayed. Answered all questions to the best my ability Vitals noted, in general he is awake alert oriented x3 pleasant no acute distress. HEENT normal cephalic atraumatic mucous membranes are moist. Lungs are unlabored no accessory muscle use good effort. Skin shows no rashes no pallor or icterus. Choledocholithiasisimproved status post ERCP. Continue Zosyn and supportive care for now. Advance diet, likely can DC antibiotics in the next day or 2. Otherwise as above Subjective States he's doing much better than he's been in past few days. Wanted to eat. Constitutional: + fatigue Gastrointestinal: no abdominal pain, no nausea and no vomiting Physical Exam 2 Vital Signs (Past 24 Hours): Last Vital Signs Temp 36.4 C L 08/07/18 14:52 Pulse 60 08/07/18 14:52 Resp 20 08/07/18 14:52 BP 92/57 L 08/07/18 14:52 Pulse Ox 98 08/07/18 14:52 General: Alert, oriented HEENT: NC/AT, oropharynx moist. Chest: Some pectus noted. CV: RRR, no murmurs appreciated Resp: Breath sounds clear bilaterally, no increased effort of breathing Abdomen: Soft, nontender. Extremities: No edema in LE Results & Data Laboratory Results Laboratory Results - last 24 hr 08/06/18 08/06/18 08/07/18 21:26 21:28 06:43 WBC 12.17 H RBC 4.42 L Hgb 12.6 L Hct 38.3 L MCV 86.7 MCH 28.5 MCHC 32.9 RDW Std Deviation 42.8 RDW Coeff of Lin 13.4 Plt Count 168 MPV 10.9 H Immature Gran % (Auto) 0.4 Neut % (Auto) 79.9 Lymph % (Auto) 8.4 [place] % (Auto) 8.2 Eos % (Auto) 3.0 Baso % (Auto) 0.1 Immature Gran # (Auto) 0.05 H Neut # (Auto) 9.73 H Lymph # (Auto) 1.02 L [place] # (Auto) 1.00 H Eos # (Auto) 0.36 Baso # (Auto) 0.01 Sodium Potassium Chloride Carbon Dioxide Anion Gap BUN Creatinine Est Cr Clr Drug Dosing Est GFR ( Amer) Est GFR (Non-Af Amer) BUN/Creatinine Ratio Glucose POC Glucose 307 H 300 H Calcium Total Bilirubin AST ALT Alkaline Phosphatase Total Creatine Kinase Total Protein Albumin Globulin Albumin/Globulin Ratio 08/07/18 08/07/18 08/07/18 06:43 07:43 11:52 WBC RBC Hgb Hct MCV MCH MCHC RDW Std Deviation RDW Coeff of Lin Plt Count MPV Immature Gran % (Auto) Neut % (Auto) Lymph % (Auto) [place] % (Auto) Eos % (Auto) Baso % (Auto) Immature Gran # (Auto) Neut # (Auto) Lymph # (Auto) [place] # (Auto) Eos # (Auto) Baso # (Auto) Sodium 138 Potassium 4.2 Chloride 105 Carbon Dioxide 25 Anion Gap 8.0 BUN 34 H Creatinine 1.70 H Est Cr Clr Drug Dosing 31.6 Est GFR ( Amer) 41.1 Est GFR (Non-Af Amer) 35.5 BUN/Creatinine Ratio 19.8 Glucose 109 H POC Glucose 127 H 204 H Calcium 8.2 L Total Bilirubin 0.9 AST 162 H ALT 80 H Alkaline Phosphatase 58 Total Creatine Kinase 2738 H Total Protein 6.1 L Albumin 2.3 L Globulin 3.8 Albumin/Globulin Ratio 0.6 L 08/07/18 08/07/18 16:25 21:26 WBC RBC Hgb Hct MCV MCH MCHC RDW Std Deviation RDW Coeff of Lin Plt Count MPV Immature Gran % (Auto) Neut % (Auto) Lymph % (Auto) [place] % (Auto) Eos % (Auto) Baso % (Auto) Immature Gran # (Auto) Neut # (Auto) Lymph # (Auto) [place] # (Auto) Eos # (Auto) Baso # (Auto) Sodium Potassium Chloride Carbon Dioxide Anion Gap BUN Creatinine Est Cr Clr Drug Dosing Est GFR ( Amer) Est GFR (Non-Af Amer) BUN/Creatinine Ratio Glucose POC Glucose 199 H 153 H Calcium Total Bilirubin AST ALT Alkaline Phosphatase Total Creatine Kinase Total Protein Albumin Globulin Albumin/Globulin Ratio Medications Administered Home Medications acetaminophen [Tylenol Extra Strength] 1,000 mg PO Q6H PRN 08/05/18 [History Confirmed 08/05/18] apixaban [Eliquis] 2.5 mg PO BID 08/05/18 [History Confirmed 08/05/18] aspirin 81 mg PO QAM 08/05/18 [History Confirmed 08/05/18] atorvastatin 80 mg PO QAM 08/05/18 [History Confirmed 08/05/18] esomeprazole magnesium [Nexium] 40 mg PO QAM 08/05/18 [History Confirmed ] finasteride 5 mg PO QAM 08/05/18 [History Confirmed 08/05/18] glipizide 10 mg PO BID 08/05/18 [History Confirmed 08/05/18] metoprolol succinate 150 mg PO QAM 08/05/18 [History Confirmed 08/05/18] multivitamin 1 tab PO QAM 08/05/18 [History Confirmed 08/05/18] nystatin 1 applic TOPICAL TID 08/05/18 [History Confirmed 08/05/18] ramipril 5 mg PO QAM 08/05/18 [History Confirmed 08/05/18] sitagliptin [Januvia] 50 mg PO QAM 08/05/18 [History Confirmed 08/05/18] terazosin 5 mg PO HS 08/05/18 [History Confirmed 08/05/18] triamcinolone acetonide 1 applic TOPICAL TID 08/05/18 [History Confirmed ] Active Medications Atorvastatin Calcium (Lipitor) [address] [facility] Stop: 09/05/18 08:59 Last Admin: 08/07/18 07:54 Dose: 80 mg Finasteride (Proscar) [address] [facility] Stop: 09/05/18 08:59 Last Admin: 08/07/18 07:54 Dose: 5 mg Hydromorphone HCl (Dilaudid) 0.5 mg IV Q4H PRN PRN Reason: Pain Stop: 08/19/18 17:47 Piperacillin Sod/Tazobactam Sod (Zosyn) 3.375 gm in 115 mls @ 28.75 mls/hr IV Q8H [facility]; Protocol Stop: 08/16/18 00:00 Last Infusion: 08/07/18 21:00 Dose: Infused Insulin Aspart (Novolog Flexpen) 0 units [facility] Stop: 09/05/18 20:59 Last Admin: 08/07/18 21:27 Dose: Not Given Ioversol (Optiray 320 100ml) 94 ml IV ONCE PRN PRN Reason: Interaction Checking Stop: 08/09/18 13:05 Last Admin: 08/05/18 13:06 Dose: 94 ml Metoprolol Succinate (Toprol Xl) [address] [facility] Stop: 09/05/18 08:59 Last Admin: 08/07/18 07:54 Dose: 150 mg Miscellaneous Information (Consult) 1 ea N/A UD PRN PRN Reason: Consult Stop: 09/04/18 17:47 Ondansetron HCl (Zofran) 4 mg IV Q8H PRN PRN Reason: nausea/vomiting Stop: 09/04/18 17:47 Pantoprazole Sodium (Protonix) 40 mg PO QAM [facility] Stop: 09/05/18 08:59 Last Admin: 08/07/18 07:54 Dose: 40 mg Terazosin HCl (Hytrin) 5 mg PO [facility] Stop: 09/04/18 20:59 Last Admin: 08/06/18 21:20 Dose: Not Given Resident Activity Tracking Resident Involvement: Resident Care Provided Care Provided: [facility] Medicine _ (1) Rhabdomyolysis Encounter type: Rhabdomyolysis type: non-traumatic Qualified Code(s): M62.82 - Rhabdomyolysis (2) Abdominal pain Abdominal location: right upper quadrant Qualified Code(s): R10.11 - Right upper quadrant pain
[2018-08-07] MEDS: TERAZOSIN HCL 5 MG CAP PO SCH (21:53)
[2018-08-08] MEDS: PIPERACILLIN/TAZOBACTAM 3.375 GM/115 ML BAG IV SCH ×3 (00:38→15:57)
[2018-08-08] MEDS: INSULIN ASPART 100 UNITS/ML 3 ML PEN SC SCH ×4 (07:25→20:45)
[2018-08-08] MEDS: ATORVASTATIN 40 MG TAB PO SCH (07:29)
[2018-08-08] MEDS: PANTOprazole 40 MG TAB PO SCH (07:29)
[2018-08-08] MEDS: FINASTERIDE 5 MG TAB PO SCH (07:29)
[2018-08-08] MEDS: METOPROLOL SUCC 50MG EXT REL TAB PO SCH (07:29)
[2018-08-08 09:22] LABS: Basophils # (auto) 0.03 K/uL (0-0.2); Basophils % (auto) 0.4 %; Eosinophils # (auto) 0.39 K/uL (0-0.5); Eosinophils % (auto) 4.9 %; Hematocrit (blood only) 37.6 % (42-52); Hemoglobin 12.5 g/dL (14.0-18.0); Immature Granulocytes # (auto) 0.01 K/uL (0.00-0.02); Immature Granulocytes % (auto) 0.1 %; Lymphocytes # (auto) 1.06 K/uL (1.2-3.4); Lymphocytes % (auto) 13.2 %; Mean Corpuscular Hgb Conc 33.2 g/dL (32-36); Mean Corpuscular Volume 85.8 fL (80-100); Monocytes # (auto) 0.83 K/uL (0.11-0.59); Monocytes % (auto) 10.3 %; Neutrophils # (auto) 5.71 K/uL (1.4-6.5); Neutrophils % (auto) 71.1 %; Platelet Count 207 K/uL (130-400); RDW Coefficient of Variation 13.2 % (11.5-14.5); RDW Standard Deviation 41.7 fL (36.4-46.3); Red Blood Count 4.38 M/uL (4.7-6.1); White Blood Count 8.03 K/uL (4.8-10.8)
[2018-08-08 09:50] LABS: Albumin Level 2.3 gm/dl (3.4-5.0); BUN Creatinine Ratio 15.8 (10-20); Calcium 7.8 mg/dl (8.5-10.1); Creatinine Clr Calc Pharmacy 34.4 ml/min; Est GFR (African American) 45.6; Est GFR (Non-African American) 39.4; Potassium 3.6 mmol/L (3.5-5.1)
[2018-08-08 09:53] LABS: Albumin Globulin Ratio 0.6 (0.9-2); Bilirubin,Total 0.6 mg/dl (0.2-1); Total Protein 6.3 gm/dl (6.4-8.2)
--- NOTE | 2018-08-08 11:31 | Surgery Progress Note ---
Date of Service August 08, 2018 Assessment & Plan (1) Acute cholecystitis: 08/08/2018 Patient feeling good. Pain well controlled Tolerating low fat diet. Dr. Louie to resume care tomorrow AM- possible Cholecystectomy this week. 08/07/2018 feels much better- adv diet per GI/med team possible cholecystectomy this week- per Dr Louie/GI/ med team depending on progress Subjective patient resting comfortably in bed- reports that he is feeling good this AM. Tolerating low fat diet without issue. Physical Exam 2 Vital Signs (Past 24 Hours): Last Vital Signs Temp 37.1 C 08/08/18 08:00 Pulse 68 08/08/18 08:00 Resp 18 08/08/18 08:00 BP 121/74 08/08/18 08:00 Pulse Ox 94 08/08/18 08:00 Gastrointestinal (Abdomen): Percussion/Palpation: abdomen soft; abdomen nontender and no guarding
--- NOTE | 2018-08-08 13:50 | Family Medicine Progress Note ---
Date of Service August 08, 2018 Assessment & Plan (1) Acute cholecystitis: Mr. Hayes is an 87yo M with a PMHx of CAD s/p CABGx1, pAfib, HTN, HLD , CKD3, and T2DM who is s/p ERCP for choledocholithiasis. Possible cholecystectomy while hospitalized. Will be made NPO after midnight tonight. Acute Cholecystitis - Surgery and GI consulted - Abx: Pip-tazo 3.375 Q8H -Started on low fat diet, tolerated well. Undecided whether he wants cholecystectomy while hosp, vs. at a later date since no longer symptomatic. - Zofran for nausea Rhabdomyolysis-RESOLVED -fluids stopped as levels <5000. Elevated Troponin - Cardiology Consulted - Echo: mod concentric LVH, LVEF>70%, normal RV, Mod-sev , grade I diastolyic dysfunction - Continue metoprolol succinate 150 mg daily. - Continue ASA 81 mg daily, Atorvastatin 80 mg daily. - Continue Ramipril 5 mg daily. - In context of his increase CK and history concerning for rhabdo his elevated troponins may be elevated both in the setting of infection from pancreatitis and also from decreased filtration. pAfib - Sinus on admit - Continue metoprolol as above - Apixaban held in anticipation of possible surgery T2DM - SSI - BMP daily - Glucose checks AC/HS HTN - Metoprolol, Ramipril as above HLD - Continue Atorvastatin as above DVT Prophylaxsis: Apixaban, currently held in anticipation of surgery eval. Code: Full (2) Rhabdomyolysis: (3) CKD (chronic kidney disease): (4) CAD (coronary artery disease): (5) Choledocholithiasis: (6) Abdominal pain: (7) Elevated troponin I level: (8) DVT prophylaxis: Supervising Physician Co-Signing Physician Notes I personally examined the patient and verified all duron points of history and exam, discussed case, and agree with decision making with Dr Green. Feeling okay, tolerating advanced diet well. Vitals noted, in general he is awake alert oriented x3 pleasant no acute distress. HEENT normal cephalic atraumatic mucous membranes are moist. Lungs are unlabored no accessory muscle use good effort. Abdomen is soft with no tenderness no guarding no rebound no rigidity skin shows no rashes no pallor or icterus. Choledocholithiasisimproved status post ERCP. Continue Zosyn and supportive care for now. Continue low-fat diet, likely can DC antibiotics in the near future depending on further input from surgery, still determining cholecystectomy during this stay since he is already off his anticoagulation versus delayed. Otherwise as above Subjective States he is doing well. Has had dinner and breakfast with no pain after eating. No N/V. Constitutional: + fatigue Gastrointestinal: no abdominal pain, no nausea and no vomiting Physical Exam 2 Vital Signs (Past 24 Hours): Last Vital Signs Temp 36.8 C 08/08/18 11:43 Pulse 65 08/08/18 11:43 Resp 20 08/08/18 11:43 BP 114/63 08/08/18 11:43 Pulse Ox 94 08/08/18 11:43 General: Alert, oriented HEENT: NC/AT, oropharynx moist. Chest: Some bone healing noted from previous surgery. CV: RRR, blowing murmur appreciated Resp: Breath sounds clear bilaterally, no increased effort of breathing Abdomen: Soft, nontender especially in RUQ. Extremities: No edema in LE Results & Data Laboratory Results Laboratory Results - last 24 hr 08/07/18 08/07/18 08/08/18 16:25 21:26 07:21 WBC RBC Hgb Hct MCV MCH MCHC RDW Std Deviation RDW Coeff of Lin Plt Count MPV Immature Gran % (Auto) Neut % (Auto) Lymph % (Auto) Carlton % (Auto) Eos % (Auto) Baso % (Auto) Immature Gran # (Auto) Neut # (Auto) Lymph # (Auto) Carlton # (Auto) Eos # (Auto) Baso # (Auto) Sodium Potassium Chloride Carbon Dioxide Anion Gap BUN Creatinine Est Cr Clr Drug Dosing Est GFR ( Amer) Est GFR (Non-Af Amer) BUN/Creatinine Ratio Glucose POC Glucose 199 H 153 H 138 H Calcium Total Bilirubin AST ALT Alkaline Phosphatase Total Protein Albumin Globulin Albumin/Globulin Ratio 08/08/18 08/08/18 08/08/18 08:58 08:58 11:22 WBC 8.03 RBC 4.38 L Hgb 12.5 L Hct 37.6 L MCV 85.8 MCH 28.5 MCHC 33.2 RDW Std Deviation 41.7 RDW Coeff of Lin 13.2 Plt Count 207 MPV 11.0 H Immature Gran % (Auto) 0.1 Neut % (Auto) 71.1 Lymph % (Auto) 13.2 Carlton % (Auto) 10.3 Eos % (Auto) 4.9 Baso % (Auto) 0.4 Immature Gran # (Auto) 0.01 Neut # (Auto) 5.71 Lymph # (Auto) 1.06 L Carlton # (Auto) 0.83 H Eos # (Auto) 0.39 Baso # (Auto) 0.03 Sodium 133 L Potassium 3.6 Chloride 102 Carbon Dioxide 23 Anion Gap 7.0 BUN 25 H Creatinine 1.56 H Est Cr Clr Drug Dosing 34.4 Est GFR ( Amer) 45.6 Est GFR (Non-Af Amer) 39.4 BUN/Creatinine Ratio 15.8 Glucose 200 H POC Glucose 241 H Calcium 7.8 L Total Bilirubin 0.6 AST 121 H ALT 77 Alkaline Phosphatase 65 Total Protein 6.3 L Albumin 2.3 L Globulin 4.0 Albumin/Globulin Ratio 0.6 L Medications Administered Home Medications acetaminophen [Tylenol Extra Strength] 1,000 mg PO Q6H PRN 08/05/18 [History Confirmed 08/05/18] apixaban [Eliquis] 2.5 mg PO BID 08/05/18 [History Confirmed 08/05/18] aspirin 81 mg PO QAM 08/05/18 [History Confirmed 08/05/18] atorvastatin 80 mg PO QAM 08/05/18 [History Confirmed 08/05/18] esomeprazole magnesium [Nexium] 40 mg PO QAM 08/05/18 [History Confirmed ] finasteride 5 mg PO QAM 08/05/18 [History Confirmed 08/05/18] glipizide 10 mg PO BID 08/05/18 [History Confirmed 08/05/18] metoprolol succinate 150 mg PO QAM 08/05/18 [History Confirmed 08/05/18] multivitamin 1 tab PO QAM 08/05/18 [History Confirmed 08/05/18] nystatin 1 applic TOPICAL TID 08/05/18 [History Confirmed 08/05/18] ramipril 5 mg PO QAM 08/05/18 [History Confirmed 08/05/18] sitagliptin [Januvia] 50 mg PO QAM 08/05/18 [History Confirmed 08/05/18] terazosin 5 mg PO HS 08/05/18 [History Confirmed 08/05/18] triamcinolone acetonide 1 applic TOPICAL TID 08/05/18 [History Confirmed ] Active Medications [facility] Stop: 09/05/18 08:59 Last Admin: 08/08/18 07:29 Dose: 80 mg Finasteride (Proscar) [facility] Stop: 09/05/18 08:59 Last Admin: 08/08/18 07:29 Dose: 5 mg Hydromorphone HCl (Dilaudid) 0.5 mg IV Q4H PRN PRN Reason: Pain Stop: 08/19/18 17:47 Piperacillin Sod/Tazobactam Sod (Zosyn) 3.375 gm in 115 mls @ 28.75 mls/hr IV Q8H [facility]; Protocol Stop: 08/16/18 00:00 Last Infusion: 08/08/18 11:38 Dose: Infused Insulin Aspart (Novolog Flexpen) 0 units SC [facility] Stop: 09/05/18 20:59 Last Admin: 08/08/18 11:40 Dose: 3 units Ioversol (Optiray 320 100ml) 94 ml IV ONCE PRN PRN Reason: Interaction Checking Stop: 08/09/18 13:05 Last Admin: 08/05/18 13:06 Dose: 94 ml Metoprolol Succinate (Toprol Xl) 150 mg PO [facility] Stop: 09/05/18 08:59 Last Admin: 08/08/18 07:29 Dose: 150 mg Miscellaneous Information (Consult) 1 ea N/A UD PRN PRN Reason: Consult Stop: 09/04/18 17:47 Ondansetron HCl (Zofran) 4 mg IV Q8H PRN PRN Reason: nausea/vomiting Stop: 09/04/18 17:47 Pantoprazole Sodium (Protonix) [facility] Stop: 09/05/18 08:59 Last Admin: 08/08/18 07:29 Dose: 40 mg Terazosin HCl (Hytrin) 5 mg PO [facility] Stop: 09/04/18 20:59 Last Admin: 08/07/18 21:53 Dose: 5 mg Resident Activity Tracking Resident Involvement: Resident Care Provided Care Provided: Adult Hospital Medicine _ (1) Rhabdomyolysis Encounter type: Rhabdomyolysis type: non-traumatic Qualified Code(s): M62.82 - Rhabdomyolysis (2) Abdominal pain Abdominal location: right upper quadrant Qualified Code(s): R10.11 - Right upper quadrant pain
[2018-08-08] MEDS: TERAZOSIN HCL 5 MG CAP PO SCH (20:44)
[2018-08-08] MEDS: INSULIN GLARGINE SOLOSTAR 100 UNITS/ML 3 ML PEN SC SCH (20:53)
[2018-08-09] MEDS: PIPERACILLIN/TAZOBACTAM 3.375 GM/115 ML BAG IV SCH ×4 (00:30→23:55)
[2018-08-09] MEDS: INSULIN ASPART 100 UNITS/ML 3 ML PEN SC SCH ×4 (07:49→21:48)
[2018-08-09] MEDS: FINASTERIDE 5 MG TAB PO SCH (07:50)
[2018-08-09] MEDS: METOPROLOL SUCC 50MG EXT REL TAB PO SCH ×2 (07:50→18:52)
[2018-08-09] MEDS: ATORVASTATIN 40 MG TAB PO SCH (07:50)
[2018-08-09] MEDS: PANTOprazole 40 MG TAB PO SCH (07:50)
--- NOTE | 2018-08-09 08:42 | Anesthesiology Progress Note ---
Date of Service August 09, 2018 Anesthesia Post Procedure Vital Signs Vital Signs: Temp Pulse Pulse Pulse Resp BP BP 08/09/18 07:00 36.6 C 88 18 166/79 H 08/09/18 03:39 37.3 C 71 20 151/75 H 08/09/18 01:31 71 08/08/18 23:25 37.0 C 68 20 156/73 H 08/08/18 20:43 149/72 H 08/08/18 19:28 37.0 C 68 18 165/81 H 08/08/18 15:37 64 08/08/18 14:57 36.9 C 63 20 124/69 08/08/18 11:43 36.8 C 65 20 114/63 Pulse Ox 08/09/18 07:00 93 08/09/18 03:39 92 08/09/18 01:31 08/08/18 23:25 98 08/08/18 20:43 08/08/18 19:28 96 08/08/18 15:37 08/08/18 14:57 93 08/08/18 11:43 94 Notes Mental Status: alert / awake / arousable and participated in evaluation Patient Amnestic to Procedure: Yes Nausea / Vomiting: adequately controlled Pain: adequately controlled Airway Patency, RR, SpO2: stable & adequate BP & HR: stable & adequate Hydration State: stable & adequate Anesthetic Complications: no major complications apparent and Pt Satisfied with anesthetic care
--- NOTE | 2018-08-09 11:55 | Surgery Progress Note ---
Date of Service August 09, 2018 Assessment & Plan (1) Acute cholecystitis: Acute cholecystitis is now resolved. He had cholangitis treated with ERCP and that is resolved. White blood cell count yesterday was normal. He is tolerating regular diet. He is pain-free. We had a discussion about the timing of his cholecystectomy. He would like to have it prior to discharge. I explained the possible increase in the chance of complications and explained what they were in the increased possibility of requiring an open procedure. He understands would like to proceed. Were planning for today. I reviewed with him the procedure and the possible complications. I answered his questions. His was present and answered her questions. He has signed a consent form. Subjective Feels well Denies pain Denies nausea and vomiting Tolerated regular diet Physical Exam 2 Vital Signs (Past 24 Hours): Last Vital Signs Temp 36.5 C 08/09/18 11:42 Pulse 63 08/09/18 11:42 Resp 18 08/09/18 11:42 BP 145/64 H 08/09/18 11:42 Pulse Ox 94 08/09/18 11:42 Gastrointestinal (Abdomen): Inspection/Auscultation: abdomen not distended Percussion/Palpation: abdomen soft; abdomen nontender Results & Data Laboratory Results 08/09/18 08/08/18 08/08/18 Range/Units 07:02 19:47 16:11 POC Glucose 178 H 190 H 270 H (70-99)
[2018-08-09] MEDS ORDERED: LIDOCAINE HCL 2% 2 ML VIAL/AMP(20MG/ML) INFIL ONE (13:11)
[2018-08-09] MEDS ORDERED: ROCURONIUM BROMIDE 10 MG/ML 5 ML VIAL ONE (13:11)
[2018-08-09] MEDS ORDERED: fentaNYL citrate 100 MCG/2 ML VIAL ONE ×2 (13:11→15:00)
[2018-08-09] MEDS ORDERED: DEXAMETHASONE SOD INJ 4 MG/ML VIAL ONE (13:11)
[2018-08-09] MEDS ORDERED: PROPOFOL IV EMULSION 10 MG/ML 20 ML VIAL IV ONE (13:11)
[2018-08-09] MEDS ORDERED: ONDANSETRON INJ 2 MG/ML 2 ML VIAL ONE (13:11)
[2018-08-09] MEDS ORDERED: MIDAZOLAM HCL 1 MG/ML 2ML VIAL ONE (13:11)
[2018-08-09] MEDS ORDERED: BUPIVACAINE 0.5 % 5 MG/1 ML MPF 30ML VIAL ONE (13:18)
[2018-08-09] MEDS ORDERED: HEPARIN (PORCINE) 1000 UNIT/ML 10 ML (CATH LAB USE ONLY) ONE (13:18)
[2018-08-09] MEDS ORDERED: CEFAZOLIN 250 MG/ML 1 GM VIAL ONE (13:19)
[2018-08-09] MEDS ORDERED: ePHEDrine sulfate 50 MG/ML AMP IV PRN (13:45)
[2018-08-09] MEDS ORDERED: fentaNYL citrate 100 MCG/2 ML VIAL IV PRN (13:45)
[2018-08-09] MEDS ORDERED: ATROPINE SULFATE 0.1 MG/ML 10ML SYR IV PRN (13:45)
[2018-08-09] MEDS ORDERED: ONDANSETRON INJ 2 MG/ML 2 ML VIAL IV PRN (13:45)
--- NOTE | 2018-08-09 13:49 | Anesthesiology Consultation ---
Date of Service August 09, 2018 Moderate to severe Paroxysmal AFib NSETMI CAD CKD Assessment & Plan (1) Encounter for pre-operative examination: Chart Review Chart Review: Acceptable Risk for Surgery and Patient NOT seen in Pre Admission Testing Consults Requested none ASA ASA4 Proposed Anesthesia Anesthesia Type: General Risk / Benefits Reviewed With: PT / POA / Parent / Guardian, Accepts Plan and Informed Consent Obtained NPO Date Last Intake of Fluids: 08/08/18 Time Last Intake of Fluids: 00:00 Last Intake of Fluids Comment: NPO at midnight Date Last Intake of Solids: 08/08/18 Time Last Intake of Solids: 18:00 Last Intake of Solids Comment: Dinner on 08/08/18 History Surgery Operation Date: 08/06/18 07:15 Proposed Procedures p Endoscopic Retrograde Cholangiopancreatogram - Vera Manrique MD Operation Date: 08/09/18 10:15 Proposed Procedures p Laparoscopic Cholecystectomy, No Cholangiogram - Leonid Zamorano MD Height/Weight Height: 5 ft 10 in Weight: 87.5 kg Allergies Allergy/AdvReac Type Severity Reaction Status Date / Time No Known Allergies Allergy Unverified 08/05/18 13:22 Medications Home Medications Medication Instructions Recorded Confirmed Last Taken acetaminophen [Tylenol Extra 1,000 mg PO Q6H PRN 08/05/18 08/05/18 08/03/18 Strength] apixaban [Eliquis] 2.5 mg PO BID 08/05/18 08/05/18 08/04/18 aspirin 81 mg PO QAM 08/05/18 08/05/18 08/04/18 atorvastatin 80 mg PO QAM 08/05/18 08/05/18 08/04/18 esomeprazole magnesium [Nexium] 40 mg PO QAM 08/05/18 08/05/18 08/05/18 finasteride 5 mg PO QAM 08/05/18 08/05/18 08/04/18 glipizide 10 mg PO BID 08/05/18 08/05/18 08/04/18 metoprolol succinate 150 mg PO QAM 08/05/18 08/05/18 08/04/18 multivitamin 1 tab PO QAM 08/05/18 08/05/18 08/04/18 nystatin 1 applic TOPICAL TID 08/05/18 08/05/18 08/04/18 ramipril 5 mg PO QAM 08/05/18 08/05/18 08/04/18 sitagliptin [Januvia] 50 mg PO QAM 08/05/18 08/05/18 08/04/18 terazosin 5 mg PO HS 08/05/18 08/05/18 08/04/18 triamcinolone acetonide 1 applic TOPICAL TID 08/05/18 08/05/18 08/04/18 Active Medications Generic Name Dose Route Start Last Admin Trade Name Freq PRN Reason Stop Dose Admin Atorvastatin Calcium 80 mg 08/06/18 09:00 08/09/18 07:50 Lipitor PO 09/05/18 08:59 80 mg QAM RERE Administration Finasteride 5 mg 08/06/18 09:00 08/09/18 07:50 Proscar PO 09/05/18 08:59 5 mg QAM RERE Administration Piperacillin Sod/Tazobactam Sod 3.375 gm in 115 mls @ 28.75 mls/hr 08/06/18 00 :00 08/09/18 12:04 Zosyn IV 08/16/18 00:00 Infused Q8H RERE Infusion Protocol Insulin Aspart 0 units 08/06/18 21:00 08/09/18 12:04 Novolog Flexpen SC 09/05/18 20:59 1 units ACHS RERE Administration Insulin Glargine 5 units 08/08/18 21:00 08/08/18 20:53 Lantus Solostar Pen SC 09/07/18 20:59 5 units HS RERE Administration Metoprolol Succinate 150 mg 08/06/18 09:00 08/09/18 07:50 Toprol Xl PO 09/05/18 08:59 150 mg QAM RERE Administration Pantoprazole Sodium 40 mg 08/06/18 09:00 08/09/18 07:50 Protonix PO 09/05/18 08:59 40 mg QAM RERE Administration Terazosin HCl 5 mg 08/05/18 21:00 08/08/18 20:44 Hytrin PO 09/04/18 20:59 5 mg HS RERE Administration Past Medical History Medical History Acute cholecystitis (Acute) CKD (chronic kidney disease) Aortic stenosis, moderate BPH (benign prostatic hyperplasia) Diabetes mellitus GERD (gastroesophageal reflux disease) HTN (hypertension) PAF (paroxysmal atrial fibrillation) Past Surgical History Surgical History S/P CABG (coronary artery bypass graft) S/P appendectomy Social History Smoking Status: Former smoker Do You Dip or Chew Tobacco: No Smoking End Date: 1981 Hx Alcohol Use: Yes Alcohol type: other alcohol intake frequency: holidays/special occasions only Hx Substance Use: No Physical Exam Vital Signs Last Vital Signs Temp 37.1 C 08/09/18 13:40 Pulse 63 08/09/18 13:40 Resp 18 08/09/18 13:40 BP 167/77 H 08/09/18 13:40 Pulse Ox 95 08/09/18 13:40 ENMT Mouth: + edentulous; no TMJ abnormality Thyromental Distance: > or= 3.5 Finger Breadths Mallampati Class: II Neck normal visual inspection Respiratory normal respiratory effort Cardiovascular Rate/Rhythm: regular rate and regular rhythm Heart Sounds: + murmur (Systolic ejection murmur) Neurologic moves all extremities Psychiatric Orientation: alert Testing Laboratory Results 08/08/18 08:58 08/08/18 08:58 PT 14.0 Seconds (9.0-12.0) H 08/05/18 11:50 INR 1.4 (0.9-1.1) H 08/05/18 11:50 08/09/18 08/09/18 11:39 07:02 POC Glucose 174 H 178 H
[2018-08-09] MEDS ORDERED: GLYCOPYRROLATE 0.2 MG/ML VIAL ONE (14:43)
[2018-08-09] MEDS ORDERED: NEOSTIGMINE METHYLSULFATE 5 MG/5 ML SYR ONE (14:43)
--- NOTE | 2018-08-09 15:07 | Post Operative Brief Note ---
Immediate Post Op Note v1 Date of Surgery August 09, 2018 Pre & Post Diagnosis Operation Date: 08/06/18 07:15 Pre-Op Diagnosis: common bile duct stone, cholangitis Post-Op Diagnosis: common bile duct stone, cholangitis Operation Date: 08/09/18 10:15 Pre-Op Diagnosis: cholecystits, cholelithiasis, history of choledocholithiasis Post-Op Diagnosis: same Procedure Operation Date: 08/06/18 07:15 Actual Procedures p Endoscopic Retrograde Cholangiopancreatogram, with sphincterotomy and balloon sweep(Not Applicable) - Vera Manrique MD Operation Date: 08/09/18 10:15 Actual Procedures p Laparoscopic Cholecystectomy, No Cholangiogram(Not Applicable) - Leonid Zamorano MD Surgeon Leonid Zamorano MD Stem Roller Operator Mar Hilliard PA-C Estimated Blood Loss 5 Findings Consistent with Post-Op Diagnosis Specimens Gallbladder and contents Anesthesia Type General Complications none
--- NOTE | 2018-08-09 16:10 | Anesthesiology Progress Note ---
Date of Service August 09, 2018 Anesthesia Post Procedure Vital Signs Vital Signs: Temp Pulse Pulse Pulse Resp BP BP 08/09/18 16:05 36.4 C L 71 18 138/72 08/09/18 15:55 36.4 C L 71 18 145/68 H 08/09/18 15:45 70 18 143/70 H 08/09/18 15:35 70 18 154/85 H 08/09/18 15:27 36.7 C 71 71 18 166/72 H 08/09/18 13:40 37.1 C 63 63 18 167/77 H 08/09/18 11:42 36.5 C 63 18 145/64 H 08/09/18 08:00 70 08/09/18 07:00 36.6 C 88 18 166/79 H 08/09/18 03:39 37.3 C 71 20 151/75 H 08/09/18 01:31 71 08/08/18 23:25 37.0 C 68 20 156/73 H 08/08/18 20:43 149/72 H 08/08/18 19:28 37.0 C 68 18 165/81 H Pulse Ox 08/09/18 16:05 93 08/09/18 15:55 93 08/09/18 15:45 92 08/09/18 15:35 99 08/09/18 15:27 100 08/09/18 13:40 95 08/09/18 11:42 94 08/09/18 08:00 08/09/18 07:00 93 08/09/18 03:39 92 08/09/18 01:31 08/08/18 23:25 98 08/08/18 20:43 08/08/18 19:28 96 Pain Intensity Back: Pain Intensity: 2 Notes Mental Status: alert / awake / arousable and participated in evaluation Nausea / Vomiting: adequately controlled Pain: adequately controlled Airway Patency, RR, SpO2: stable & adequate BP & HR: stable & adequate Hydration State: stable & adequate Anesthetic Complications: no major complications apparent and Pt Satisfied with anesthetic care
[2018-08-09] MEDS ORDERED: OXYCODONE/ACETAMINOPHEN 5mg/325mg TAB PO PRN (16:32)
[2018-08-09] MEDS ORDERED: MoRPHine SULFATE 4 MG/ML 1 ML CARP\\VIAL IV PRN (16:32)
--- NOTE | 2018-08-09 16:38 | Family Medicine Progress Note ---
Date of Service August 09, 2018 Assessment & Plan (1) Acute cholecystitis: Mr. Hayes is an 87yo M with a PMHx of CAD s/p CABGx1, pAfib, HTN, HLD , CKD3, and T2DM who is s/p ERCP for choledocholithiasis. He is scheduled for cholecystectomy this afternoon. Acute Cholecystitis - Clinically improved - Surgery and GI consulted - Abx: Pip-tazo 3.375 Q8H - NPO since midnight, will have cholecystectomy this afternoon - Zofran for nausea Rhabdomyolysis-RESOLVED -fluids stopped as levels <5000. Elevated Troponin - Cardiology Consulted - Echo: mod concentric LVH, LVEF>70%, normal RV, Mod-sev , grade I diastolyic dysfunction - Continue metoprolol succinate 150 mg daily. - Continue ASA 81 mg daily, Atorvastatin 80 mg daily. - Continue Ramipril 5 mg daily. - In context of his increase CK and history concerning for rhabdo his elevated troponins may be elevated both in the setting of infection from pancreatitis and also from decreased filtration. pAfib - Sinus on admit - Continue metoprolol as above - Apixaban held in anticipation of possible surgery. Restart once OK by surgery. T2DM - SSI - BMP daily - Glucose checks AC/HS HTN - Metoprolol, Ramipril as above HLD - Continue Atorvastatin as above DVT Prophylaxsis: Apixaban, currently held in anticipation of surgery eval. Code: Full Dispo: Anticipate home tomorrow (2) Rhabdomyolysis: (3) CKD (chronic kidney disease): (4) CAD (coronary artery disease): (5) Choledocholithiasis: (6) Abdominal pain: (7) Elevated troponin I level: (8) DVT prophylaxis: Supervising Physician Co-Signing Physician Notes I personally examined the patient and verified all duron points of history and exam, discussed case, and agree with decision making with Dr Dunne. Feeling okay, for cholecystectomy later today. Answered questions to the best of my ability both his and family who are at the bedside Vitals noted, in general he is awake alert oriented x3 pleasant no acute distress. HEENT normocephalic atraumatic mucous members are moist. Lungs are unlabored no accessory muscle use good effort. Skin shows no rashes no pallor or icterus. Choledocholithiasisshe is status post ERCP and removal of stone, he is for cholecystectomy today Aortic stenosisnoted he is asymptomatic Medically acceptable risk for surgery Anticipate home tomorrow barring any surprises perioperatively Subjective Edward reports he feels well today. Denies fevers, chills, night sweats. No nausea or vomiting. No abdominal pain. Tolerated dinner last night well, has been n.p.o. since midnight. Denies shortness of breath, chest pain, chest pressure would prefer to have his cholecystectomy today if possible. No other questions or concerns. Review of Systems See HPI Physical Exam 2 Vital Signs (Past 24 Hours): Last Vital Signs Temp 36.4 C L 08/09/18 16:05 Pulse 71 08/09/18 16:05 Resp 18 08/09/18 16:05 BP 138/72 08/09/18 16:05 Pulse Ox 93 08/09/18 16:05 Physical Exam: General: A&Ox3. NAD. Cooperative. HEENT: Atraumatic, normocephalic. Pulm: CTAB A&P. -wheezes, -rales, -rhonchi. Symmetrical chest rise. No increased work of breathing. No respiratory distress. Cardiac: RRR, -mrg. Radial pulses intact and symmetrical. Abdominal: Nontender, nondistended, soft. BS present. Results & Data Laboratory Results Abnormal lab results 08/08/18 08/09/18 08/09/18 Range/Units 19:47 07:02 11:39 POC Glucose 190 H 178 H 174 H (70-99) 08/09/18 Range/Units 15:30 POC Glucose 166 H (70-99) Medications Administered Current Inpatient Medications Atorvastatin Calcium (Lipitor) 80 mg PO QAM [facility] Stop: 09/05/18 08:59 Last Admin: 08/09/18 07:50 Dose: 80 mg Finasteride (Proscar) 5 mg PO QAM [facility] Stop: 09/05/18 08:59 Last Admin: 08/09/18 07:50 Dose: 5 mg Piperacillin Sod/Tazobactam Sod (Zosyn) 3.375 gm in 115 mls @ 28.75 mls/hr IV Q8H [facility]; Protocol Stop: 08/16/18 00:00 Last Infusion: 08/09/18 12:04 Dose: Infused Insulin Aspart (Novolog Flexpen) 0 units SC ACHS [facility] Stop: 09/05/18 20:59 Last Admin: 08/09/18 12:04 Dose: 1 units Insulin Glargine (Lantus Solostar Pen) 5 units SC HS [facility] Stop: 09/07/18 20:59 Last Admin: 08/08/18 20:53 Dose: 5 units Metoprolol Succinate (Toprol Xl) 150 mg PO QAM [facility] Stop: 09/05/18 08:59 Last Admin: 08/09/18 07:50 Dose: 150 mg Miscellaneous Information (Consult) 1 ea N/A UD PRN PRN Reason: Consult Stop: 09/04/18 17:47 Morphine Sulfate (Morphine Sulfate) 4 mg IV Q1H PRN PRN Reason: Pain Stop: 08/23/18 16:31 Ondansetron HCl (Zofran) 4 mg IV Q8H PRN PRN Reason: nausea/vomiting Stop: 09/04/18 17:47 Oxycodone/Acetaminophen (Percocet 5mg/325mg) 1 tab PO Q4H PRN PRN Reason: Pain Stop: 08/23/18 16:31 Pantoprazole Sodium (Protonix) 40 mg PO QAM [facility] Stop: 09/05/18 08:59 Last Admin: 08/09/18 07:50 Dose: 40 mg Terazosin HCl (Hytrin) 5 mg PO HS [facility] Stop: 09/04/18 20:59 Last Admin: 08/08/18 20:44 Dose: 5 mg _ (1) Rhabdomyolysis Encounter type: Rhabdomyolysis type: non-traumatic Qualified Code(s): M62.82 - Rhabdomyolysis (2) Abdominal pain Abdominal location: right upper quadrant Qualified Code(s): R10.11 - Right upper quadrant pain
--- NOTE | 2018-08-09 17:39 | Operative Report ---
DATE OF OPERATION: 08/09/2018 PREOPERATIVE DIAGNOSES: Cholelithiasis, acute cholecystitis, history of choledocholithiasis. POSTOPERATIVE DIAGNOSIS: Cholelithiasis, acute cholecystitis, history of choledocholithiasis. PROCEDURE: Laparoscopic cholecystectomy. SURGEON: Leonid Zamorano MD CARDIO TECH: Mar Hilliard PA-C FINDINGS: Gallbladder wall was mildly thickened. The cystic duct was not dilated. There was a lot of edema around the triangle of Calot and around the cystic duct. The gallbladder wall was more densely adherent to the liver bed than average. The liver had a micronodular surface to it. The visible bowel appeared normal. There were stones within the lumen of the gallbladder. TECHNIQUE: The patient was given a general anesthetic, and the area was prepped and draped in the usual sterile fashion. A transverse incision was made below the umbilicus, carried down through the subcutaneous tissue to the fascia which was grasped with 2 Alvin clamps and incised between. The peritoneum was identified and incised, and an introducer was placed bluntly. The abdomen was then insufflated to a pressure of 15 mmHg with carbon dioxide. The upper midline, midclavicular, and anterior axillary introducers were placed under direct vision through small skin incisions. Traction was placed on the gallbladder. There were no adhesions to the gallbladder. Beginning on the anterior surface of the infundibulum, the peritoneum was opened and peeled down toward the common bile duct over the neck. That allowed me with an access to the attachment of the neck and infundibulum on the lateral side. These attachments were divided working up toward the body, and then I was able to dissect the gallbladder away from the liver for a short distance on that side. That allowed better mobility, and I then performed a similar dissection opening the triangle of Calot and peeling connective tissue and lymphatics down toward the common bile duct and dissected the infundibulum away from the liver on that side as well. That allowed me to visualize the cystic duct. There were some connective tissue attachments anteriorly that were taken down, and then I was able to establish good plane isolating the medial side of the cystic duct. There was some thickening of the tissue behind the cystic duct. On working from the lateral side, I was able to divide some of that tissue under direct vision and peeled toward the common bile duct, which then allowed me to establish a plane behind the cystic duct. In doing that, it also exposed the cystic artery within the triangle of Calot. The liver was further dissected away from the liver up toward the body, and there was dissection of the gallbladder away from the liver on that side allowing for better mobility and better visualization and creating an adequate window. I was able to confidently identify the cystic duct gallbladder junction. I placed 2 clips on the proximal cystic duct, one near the junction with the gallbladder and divided it. I elevated the infundibulum and that allowed me to isolate the posterior wall of the cystic artery, which was then clamped twice proximally and once near the gallbladder and divided. With meticulous careful dissection, I then divided attachments of the infundibulum of the gallbladder away from the liver bed working up toward the body. There was a tubular structure that was either a large lymphatic or a small posterior branch of the artery, which was isolated, clamped, and divided. That allowed me to further elevate the body, and then I completed the dissection of the gallbladder away from the liver. It did create a hole in gallbladder, and there was minimal bile spillage, but then, the suction was used to remove the rest of the bile. Once the gallbladder was completely away from the liver, it was placed into an Endobag and brought out through the upper midline incision. Introducer was replaced, and the liver edge was elevated. There were 2 areas of oozing along the liver bed that were easily controlled with cautery. The subdiaphragmatic and subhepatic spaces were irrigated, and the irrigation was removed and that was repeated until the return was clear. The gallbladder bed of the liver was again inspected, and there was no further oozing. The previously placed clips were inspected and were intact. The gas was allowed to escape, and the introducers were removed. The fascia of the umbilical and upper midline introducer sites closed with interrupted 0 Vicryl, and the skin of all the incisions was closed with 4-0 Monocryl in either an interrupted or running subcuticular fashion. The skin was anesthetized with 0.5% Marcaine. The skin was cleansed, dried, benzoin placed, Steri-Strips applied. Estimated blood loss was 5 mL. Sponge, needle, and instrument counts were correct prior to closure. The patient tolerated the surgical procedure without complication and was transferred to recovery. I attest to the content of the Intraoperative Record and any orders documented therein. Any exception s are noted below.
[2018-08-09] MEDS: INSULIN GLARGINE SOLOSTAR 100 UNITS/ML 3 ML PEN SC SCH (21:36)
[2018-08-09] MEDS: TERAZOSIN HCL 5 MG CAP PO SCH (21:50)
[2018-08-10 06:10] LABS: Basophils # (auto) 0.02 K/uL (0-0.2); Basophils % (auto) 0.2 %; Eosinophils # (auto) 0.09 K/uL (0-0.5); Eosinophils % (auto) 0.8 %; Hematocrit (blood only) 34.9 % (42-52); Hemoglobin 11.8 g/dL (14.0-18.0); Immature Granulocytes # (auto) 0.03 K/uL (0.00-0.02); Immature Granulocytes % (auto) 0.3 %; Lymphocytes # (auto) 1.26 K/uL (1.2-3.4); Lymphocytes % (auto) 11.5 %; Mean Corpuscular Hgb Conc 33.8 g/dL (32-36); Mean Corpuscular Volume 85.1 fL (80-100); Mean Platelet Volume 10.8 fL (7.4-10.4); Monocytes # (auto) 0.86 K/uL (0.11-0.59); Monocytes % (auto) 7.9 %; Neutrophils # (auto) 8.67 K/uL (1.4-6.5); Neutrophils % (auto) 79.3 %; Platelet Count 206 K/uL (130-400); RDW Coefficient of Variation 13.2 % (11.5-14.5); RDW Standard Deviation 40.9 fL (36.4-46.3); White Blood Count 10.93 K/uL (4.8-10.8)
[2018-08-10 06:41] LABS: BUN Creatinine Ratio 12.7 (10-20); Creatinine Clr Calc Pharmacy 42.3 ml/min; Est GFR (African American) 58.5; Est GFR (Non-African American) 50.5; Potassium 3.8 mmol/L (3.5-5.1)
[2018-08-10] MEDS: FINASTERIDE 5 MG TAB PO SCH (08:16)
[2018-08-10] MEDS: PIPERACILLIN/TAZOBACTAM 3.375 GM/115 ML BAG IV SCH (08:16)
[2018-08-10] MEDS: ATORVASTATIN 40 MG TAB PO SCH (08:16)
[2018-08-10] MEDS: PANTOprazole 40 MG TAB PO SCH (08:16)
[2018-08-10] MEDS: INSULIN ASPART 100 UNITS/ML 3 ML PEN SC SCH ×2 (08:17→11:19)
--- NOTE | 2018-08-10 08:21 | Anesthesiology Progress Note ---
Date of Service August 10, 2018 Anesthesia Post Procedure Vital Signs Vital Signs: Temp Pulse Pulse Pulse Resp BP BP 08/10/18 00:36 66 08/10/18 00:17 37.3 C 65 20 150/68 H 08/09/18 21:56 152/71 H 08/09/18 19:37 36.6 C 70 20 195/82 H 08/09/18 18:23 36.7 C 68 18 188/77 H 08/09/18 17:30 36.7 C 68 18 188/77 H 08/09/18 16:51 36.7 C 66 16 175/51 H 08/09/18 16:30 36.7 C 68 18 165/70 H 08/09/18 16:05 36.4 C L 71 18 138/72 08/09/18 15:55 36.4 C L 71 18 145/68 H 08/09/18 15:45 70 18 143/70 H 08/09/18 15:35 70 18 154/85 H 08/09/18 15:27 36.7 C 71 71 18 166/72 H 08/09/18 13:40 37.1 C 63 63 18 167/77 H 08/09/18 11:42 36.5 C 63 18 145/64 H Pulse Ox 08/10/18 00:36 08/10/18 00:17 91 08/09/18 21:56 08/09/18 19:37 92 08/09/18 18:23 92 08/09/18 17:30 92 08/09/18 16:51 08/09/18 16:30 94 08/09/18 16:05 93 08/09/18 15:55 93 08/09/18 15:45 92 08/09/18 15:35 99 08/09/18 15:27 100 08/09/18 13:40 95 08/09/18 11:42 94 Pain Intensity Back: Pain Intensity: 2 Notes Notes: Patient sleeping upon arrival. No distress or discomfort noted.
--- NOTE | 2018-08-10 10:06 | Discharge Summary ---
Date of Service August 10, 2018 Admission HPI Per Admitting Provider 87 y/o M Hx CAD, PAF, HTN, HLD, CKD IIIBPH, DM II. Presents with nausea, upper abdominal pain and a fever x 2 days. The pt is a poor historian and a side from generalized weakness denies additional complaints. A CT of the abdomen was obtained in the ER demonstrating acute cholecystitis and possibly, a 5mm common duct stone. Initil labs are notable for an elevated troponin. He has not had or SOB. 1) PMH: 1) Paroxysmal AF 2) Moderate aortic stenosis 3) HTN 4) HLD 5) CAD 6) DM II 7) BPH 8) CKD III Surgical: 1) two vessel CABG 2012 2) Appendectomy Social: Rarely drinks, no smoking history Family: Noncontributory due to age Principal Diagnosis Acute Cholecystitis Discharge Exam General: A&Ox3. NAD. Cooperative. HEENT: Atraumatic, normocephalic. Pulm: CTAB A&P. -wheezes, -rales, -rhonchi. Symmetrical chest rise. No increase work of breathing. No respiratory distress. Cardiac: RRR, -mrg. Radial pulses intact and symmetrical. Abdominal: Nontender, nondistended, soft. BS present. Surgical laparotomy incisions in place, without erythema, warmth, or discharge. Appropriate postsurgical tenderness. Extremities: No edema Discharge Data Allergies Allergy/AdvReac Type Severity Reaction Status Date / Time No Known Allergies Allergy Unverified 08/05/18 13:22 Consultations 08/05/18 13:32 Consult General Surgery Stat 08/05/18 13:44 ED Decision to Admit Stat 08/05/18 16:47 Consult Gastroenterology Routine 08/05/18 16:53 Consult Gastroenterology Stat 08/05/18 17:48 Consult Cardiology Stat Consult General Surgery Stat Procedures Performed Operation Date: 08/06/18 07:15 Actual Procedures p Endoscopic Retrograde Cholangiopancreatogram, with sphincterotomy and balloon sweep(Not Applicable) - Vera Manrique MD Operation Date: 08/09/18 10:15 Actual Procedures p Laparoscopic Cholecystectomy, No Cholangiogram(Not Applicable) - Leonid Zamorano MD Ordered Studies 08/05/18 12:36 CT abd pelvis IV con only Stat CT cervical spine wo con Stat 08/05/18 16:20 US gallbladder Stat 08/05/18 16:52 MR MRCP Stat 08/06/18 15:00 FL ERCP biliary ductal Routine Hospital Course (1) Acute cholecystitis: Mr. Hayes is an 87yo M with a PMHx of CAD s/p CABGx1, pAfib, HTN, HLD , CKD3, and T2DM who underwent ERCP and cholecystectomy for choledocolithiasis and acute cholecytitis. Mr. Hayes presented to the hospital with nausea and abdominal pain. On admission he was placed on broad antibiotic coverage with pip-tazo. He has transaminitis without increased alkphos on admit. CT-A showed gallstones and a common bile duct stones. He underwent ERCP with complete removal of stones, spincterotomy, and no placement of stents. His abdominal pain resolved post ERCP and he had a good appetite. He clinically did well, and preferred to have cholecystectomy performed while inpatient. He had an uncomplicated laparoscopic cholecystectomy and was clinically well and stable for discharge the next day. (2) Rhabdomyolysis: On admission Edward had elevated CK of 8700 on admission. On review of history he had reportedly slipped from his chair the night prior to admission and was laying on the ground for over half a day before his found him and he presented to the ED. He was treated with IVFM and his CK trended down to 2000 by HD#2. His creatinine was normal at time of discharge. (3) CKD (chronic kidney disease): He has a history of CKD. On admission his cr was mildly elevated to 1.5 from a baseline of 1.4 likely with an element of decreased filtration due to rhabdomyolysis and prerenal azotemia 2/2 his nausea/abdominal pain. His creatinine peaked at 1.7 then normalized on day of discharge. (4) CAD (coronary artery disease): He was continued on [employer] atorvastatin and metoprolol. (5) Choledocholithiasis: Treated with ERCP and lap ana as noted above. (6) Abdominal pain: (7) Elevated troponin I level: On admission he had mildly increased troponins to 0.4 thought to be elevated in the setting of infection and also with decreased filtration 2/2 rhabdomyolysis as noted above. ECHO showed mod concentric LHV with preserved EF and grade I diastylic dysfunction. Cardiology was consulted, his metoprolol, asa , atorvastatin, and ramapril were all continued. He remained clinically asymptomatic without ECG changes. (8) DVT prophylaxis: (9) Afib: He has a history of intermittent atrial fibrillation. He was in sinus rhythm on admission. Metoprolol was continued as above. Apixaban was held for ERCP and lap ana then restarted on day of discharge. He was not tachycardic during admission. (10) HTN (hypertension): Prior to admission metoprolol and ramipril were continued. (11) HLD (hyperlipidemia): Atorvastatin 80mg was continued during admission. (12) Type 2 diabetes mellitus: He has a history of T2DM. [employer] sitagliptin and glipizide were held. He was maintained on lantus 5units qHS + SSI withglucose checks AC/HS. He maintained a serum glucose of 125-200. Total Time Total Time Spent Total Time Spent (In Minutes): <30 Discharge Plan Discharge Items Patient Disposition: Home - Home Health Services Reason For Visit: ACUTE CHOLECYSTITIS Discharge Diagnosis: Acute Cholecystitis Discharge Goals: Decrease discomfort and Therapeutic intervention Activity: Resume your previous activity Lifting: No more than 25 pounds Lifting Comment: No heavy lifting over 20 pounds for 2 weeks Bathing Comment: May shower in 24 hours, leave steri strips on incisions for 7 days Driving/Machine Use Comment: No driving until you are pain free Non-emergency contact: Primary Care Provider and Surgeon Call non-emergency contact if: you have any medication questions, your symptoms worsen, your pain is not controlled, your pain is worsening, your pain is unusual for you, your pain is concerning for you and you have a fever Follow-up/Referrals: Phuc Olivera CRNP [Primary Care Provider] - 08/23/18 10:20 am (Please, follow up at [facility] [place] [facility] with Phuc LOVE on ThursdayAugust 23 at 10:20 am. *This office is located next to [employer]. If you need to change this appointment, call the office at [phone].) Leonid Zamorano MD [Physician] - 08/26/18 12:45 pm (Please, follow up at Dr. Zamorano's office with his hr administrative assistant, Mar Hilliard PA-C, on August 26 at 12:45 pm. *This office is located in the [facility] at [address] in [place]. If you need to change this appointment, call the office at [phone] ) Diet: Carb Consistent or DM2 Addtl Provider Instructions: You were seen in the hospital for nausea, fever, and abdominal pain and were found to have gallstones and inflammation of the gallbladder on hospital evaluation. Your gallstones were removed successfully by gastroenterology using Endoduodenoscopy. Your apixaban was held for surgery. You may restart your apixaban (eliquis) after returning home. Please continue to take apixaban 2.5mg by mouth twice daily. You will be given prescription for narcotic pain medication (Percocet) as needed for moderate to severe pain. Take as directed. May take extra strength Tylenol or Ibuprofen as needed for mild pain. Avoid taking Tylenol with Percocet as Percocet has Tylenol in it. You do not require any antibiotic treatment at his time. A follow-up appointment is being made for you with IVAN Talbot. You should recieve a call to confirm your appointment. If you do not recieve a call, or need to cancel/change your appointment, please call his office at . A follow-up appointment is being made for you with your surgeon Dr. Zamorano's office. You should recieve a call to confirm your appointment. If you do not receive a call, or you need to cancel/change your appointment, please call his office at [phone] to make an appointment If you develop any fevers, chills, night sweats, abdominal pain, shortness of breath, difficulty breathing, nausea/vomiting, or worsening diarrhea please call your primary care physician at the number above, or go to the emergency department if you are concerned. Prescriptions: New oxycodone-acetaminophen 5-325 mg tablet 1 tab PO Q4H PRN (Reason: pain) Qty: 10 RF: 0 Continue multivitamin Tablet 1 tab PO QAM RF: 0 terazosin 5 mg capsule 5 mg PO HS RF: 0 atorvastatin 80 mg tablet 80 mg PO QAM RF: 0 nystatin 100,000 unit/gram Ointment 1 applic TOPICAL TID RF: 0 glipizide 10 mg tablet extended release 24hr 10 mg PO BID RF: 0 metoprolol succinate 100 mg tablet extended release 24 hr 150 mg PO QAM RF: 0 aspirin 81 mg Tablet,Delayed Release (Dr/Ec) 81 mg PO QAM RF: 0 acetaminophen [Tylenol Extra Strength] 500 mg Tablet 1,000 mg PO Q6H PRN (Reason: Pain) RF: 0 triamcinolone acetonide 0.1 % cream 1 applic topical TID RF: 0 esomeprazole magnesium [Nexium] 40 mg Capsule,Delayed Release(Dr/Ec) 40 mg PO QAM RF: 0 finasteride 5 mg tablet 5 mg PO QAM RF: 0 ramipril 5 mg capsule 5 mg PO QAM RF: 0 sitagliptin 50 mg tablet 50 mg PO QAM RF: 0 apixaban 2.5 mg tablet 2.5 mg PO BID RF: 0 Stand-Alone Forms: [facility] Discharge Orders: Discharge Order (Routine); Ordered 08/10/18 Ordered By: Moustapha Dunne Admission Data Admit Date/Time: 08/05/18 15:56 Attending Provider: Alexandru Lewis Admit Provider: Erick Rodriguez Primary Care Provider: Phuc Olivera Other Providers: Cheli Louie ; Jenny Fry ; Erick Rodriguez ; Cal Flores ; Wilton Cooper ; More Maldonado ; Franca Gil ; Kyle Carvajal ; Charbel Molina ; Mary Ruiz ; Kylie Donohue ; Reno Murcia ; Bernardo Ramires ; Rosalinda Antony ; Moni Prince ; Maria R Cuellar ; Brandi Michaels ; Vera Manrique ; Collins Hines Service: Telemetry Medical Other Interventions: Discharge Summary Assessment (RN) Last Done: 08/10/18 15:18 Pending Studies at Discharge: Yes (Gallbladder pathology, will be reviewed at follow-up visit) DC Date/Time DO NOT enter until pt leaves facility: 08/10/18 15:52 Supervising Physician Co-Signing Physician Notes I personally examined the patient and verified all duron points of history and exam, discussed case, and agree with decision making with Dr Dunne. Feeling okay, eating lunch. No distress no pain Vitals noted, in general he is awake alert oriented x3 pleasant no acute distress. HEENT normocephalic atraumatic mucous members are moist. Lungs are unlabored no accessory muscle use good effort. Skin shows no rashes no pallor or icterus. Choledocholithiasishe is status post ERCP and removal of stone, no postcholecystectomy, and stable for home. Aortic stenosisnoted he is asymptomatic Stable for home, outpatient follow-up. Otherwise as above.
--- NOTE | 2018-08-10 14:57 | Surgery Progress Note ---
Date of Service August 10, 2018 Assessment & Plan (1) Acute cholecystitis: POD # 1 s/p lap cholecystectomy -vitals stable, afebrile - mild leukocytosis 10 K (post op) - minimal pain, no n/v Plan: Okay from surgical standpoint for discharge Rx for Percocet 5/325 mg q 4 hours prn pain F/u surgical office 1-2 weeks Discharge instructions reviewed Dr. Zamorano has seen and examined patient agrees with above Subjective feeling well minimal pain tolerated regular diet no n/v +flatus, small bowel movement ready to go home Physical Exam 2 Vital Signs (Past 24 Hours): Last Vital Signs Temp 36.6 C 08/10/18 08:22 Pulse 58 L 08/10/18 08:22 Resp 18 08/10/18 08:22 BP 143/75 H 08/10/18 08:22 Pulse Ox 93 08/10/18 08:22 Constitutional: WD/WN, vitals as above no acute distress Respiratory: normal respiratory effort; no respiratory distress Gastrointestinal (Abdomen): Inspection/Auscultation: abdomen normal to inspection; abdomen not distended Percussion/Palpation: + abdomen tender (at incision sites, appropriate post op) and abdomen soft; no guarding and abdomen not rigid Skin: no rashes, warm and dry + incision (covered , c/d/i) Psychiatric: A+Ox3, euthymic affect Results & Data Laboratory Results 08/10/18 08/10/18 08/10/18 Range/Units 10:57 07:19 05:47 WBC (4.8-10.8) K/uL RBC (4.7-6.1) M/uL Hgb (14.0-18.0) g/dL Hct (42-52) % MCV (80-100) fL MCH (25-34) pg MCHC (32-36) g/dL RDW Std Deviation (36.4-46.3) fL RDW Coeff of Lin (11.5-14.5) % Plt Count (130-400) K/uL MPV (7.4-10.4) fL Immature Gran % (Auto) % Neut % (Auto) % Lymph % (Auto) % Lassen % (Auto) % Eos % (Auto) % Baso % (Auto) % Immature Gran # (Auto) (0.00-0.02) K/uL Neut # (Auto) (1.4-6.5) K/uL Lymph # (Auto) (1.2-3.4) K/uL Lassen # (Auto) (0.11-0.59) K/uL Eos # (Auto) (0-0.5) K/uL Baso # (Auto) (0-0.2) K/uL Sodium 133 L (136-145) mmol/L Potassium 3.8 (3.5-5.1) mmol/L Chloride 104 (98-107) mmol/L Carbon Dioxide 26 (21-32) mmol/L Anion Gap 3.0 (3-11) BUN 16 (7-18) mg/dl Creatinine 1.27 (0.6-1.4) mg/dl Est Cr Clr Drug Dosing 42.3 ml/min Est GFR ( Amer) 58.5 Est GFR (Non-Af Amer) 50.5 BUN/Creatinine Ratio 12.7 (10-20) Glucose 187 H (70-99) mg/dl POC Glucose 257 H 170 H (70-99) Calcium 8.0 L (8.5-10.1) mg/dl 08/10/18 08/09/18 08/09/18 Range/Units 05:47 21:42 16:39 WBC 10.93 H (4.8-10.8) K/uL RBC 4.10 L (4.7-6.1) M/uL Hgb 11.8 L (14.0-18.0) g/dL Hct 34.9 L (42-52) % MCV 85.1 (80-100) fL MCH 28.8 (25-34) pg MCHC 33.8 (32-36) g/dL RDW Std Deviation 40.9 (36.4-46.3) fL RDW Coeff of Lin 13.2 (11.5-14.5) % Plt Count 206 (130-400) K/uL MPV 10.8 H (7.4-10.4) fL Immature Gran % (Auto) 0.3 % Neut % (Auto) 79.3 % Lymph % (Auto) 11.5 % Lassen % (Auto) 7.9 % Eos % (Auto) 0.8 % Baso % (Auto) 0.2 % Immature Gran # (Auto) 0.03 H (0.00-0.02) K/uL Neut # (Auto) 8.67 H (1.4-6.5) K/uL Lymph # (Auto) 1.26 (1.2-3.4) K/uL Lassen # (Auto) 0.86 H (0.11-0.59) K/uL Eos # (Auto) 0.09 (0-0.5) K/uL Baso # (Auto) 0.02 (0-0.2) K/uL Sodium (136-145) mmol/L Potassium (3.5-5.1) mmol/L Chloride (98-107) mmol/L Carbon Dioxide (21-32) mmol/L Anion Gap (3-11) BUN (7-18) mg/dl Creatinine (0.6-1.4) mg/dl Est Cr Clr Drug Dosing ml/min Est GFR ( Amer) Est GFR (Non-Af Amer) BUN/Creatinine Ratio (10-20) Glucose (70-99) mg/dl POC Glucose 232 H 173 H (70-99) Calcium (8.5-10.1) mg/dl 08/09/18 Range/Units 15:30 WBC (4.8-10.8) K/uL RBC (4.7-6.1) M/uL Hgb (14.0-18.0) g/dL Hct (42-52) % MCV (80-100) fL MCH (25-34) pg MCHC (32-36) g/dL RDW Std Deviation (36.4-46.3) fL RDW Coeff of Lin (11.5-14.5) % Plt Count (130-400) K/uL MPV (7.4-10.4) fL Immature Gran % (Auto) % Neut % (Auto) % Lymph % (Auto) % Lassen % (Auto) % Eos % (Auto) % Baso % (Auto) % Immature Gran # (Auto) (0.00-0.02) K/uL Neut # (Auto) (1.4-6.5) K/uL Lymph # (Auto) (1.2-3.4) K/uL Lassen # (Auto) (0.11-0.59) K/uL Eos # (Auto) (0-0.5) K/uL Baso # (Auto) (0-0.2) K/uL Sodium (136-145) mmol/L Potassium (3.5-5.1) mmol/L Chloride (98-107) mmol/L Carbon Dioxide (21-32) mmol/L Anion Gap (3-11) BUN (7-18) mg/dl Creatinine (0.6-1.4) mg/dl Est Cr Clr Drug Dosing ml/min Est GFR ( Amer) Est GFR (Non-Af Amer) BUN/Creatinine Ratio (10-20) Glucose (70-99) mg/dl POC Glucose 166 H (70-99) Calcium (8.5-10.1) mg/dl
== END 2018-08-10 15:52 | disposition home health service (06) | DRG 418 ==
LOC: ED 11:37 → SUATTDRO 15:56 → 2E 15:56 → 2W 08-06 17:22